=== PATIENT | female | born 1950 | race Caucasian/White ===

== ENCOUNTER 2019-08-12 23:31 | Emergency (ER) | payer OTHER, BC ==
--- OUTSIDE RECORDS SUMMARY | 2019-08-12 23:33 | XMS REPORT ---
:1950 [facility] [address] [place] [address] Dr. Morley [address] [place] [id number] Care Team Providers Name Role Phone Unavailable Unavailable Unavailable Problems This patient has no known problems. Allergies, Adverse Reactions, Alerts This patient has no known allergies or adverse reactions. Medications This patient has no known medications.
[2019-08-12] MEDS ORDERED: NA CHLORIDE 0.9% 500 ML ONE (23:57)
[2019-08-13 00:01] LABS: Urine Blood 2+ (NEG); Urine Glucose NEGATIVE (NEG); Urine Protein NEGATIVE (NEG); Urine Specific Gravity >1.030 (1.005-1.030)
[2019-08-13 00:06] LABS: Absolute Lymphocytes (CBC) 0.9 K/uL (0.7-4.9); Basophils % 0.5 % (0-1.3); Hematocrit 40.7 % (36.0-45.0); Lymphocytes % 7.5 % (15.3-44.8); MPV 8.8 fL (7.6-11.3); RBC Red Blood Cell Count 4.54 M/uL (3.86-4.86)
[2019-08-13 00:07] LABS: Urine Bacteria <20 /HPF (<20); Urine Culture Reflex Order NOT NEEDED; Urine Mucus 1+ /HPF (NONE SEEN)
[2019-08-13 00:30] LABS: Bilirubin Direct 0.2 mg/dL (0-0.2); Bilirubin Total 0.6 mg/dL (0.2-1.0); Potassium 3.6 mmol/L (3.5-5.1); Protein, Total 8.2 g/dL (6.4-8.2)
[2019-08-13 00:44] LABS: Blood Morphology Comment NOT SEEN (NOT SEEN); Platelet Estimate ADEQ
--- NOTE | 2019-08-13 02:09 | EDPHYS ---
Physician Documentation [facility] Name: Yury Rodriguez Age: 68 yrs Sex: Female : 1950 Arrival Date: 08/12/2019 Time: 23:33 Bed 20 Private MD: ED Physician Syd Moreno HPI: 08/11 23:44 This 68 yrs old Female presents to ER via EMS with complaints of abdominal rn pain. 23:44 The patient presents with abdominal pain in the left lower quadrant. Onset: The rn symptoms/episode began/occurred yesterday. The symptoms do not radiate. Associated signs and symptoms: Pertinent positives: constipation, nausea, vomiting, Pertinent negatives: blood in stools, fever, vomiting blood. The symptoms are described as achy, waxing/waning. Modifying factors: The symptoms are alleviated by nothing, the symptoms are aggravated by touching the area. Severity of pain: At its worst the pain was mild in the emergency department the pain is unchanged. The patient has experienced similar episodes in the past. Reports left lower abd pain, assoc with constipation and nausea/vomiting, no fever. No blood in stool. No urinary symptoms. Similar pain in past with kidney stones but feels different. . Historical: - Allergies: 23:39 Sulfa (Sulfonamide Antibiotics); mg2 08/12 00:01 flu vaccine; mg2 - Home Meds: 08/11 23:39 rosuvastatin oral oral [Active]; mg2 - PMHx: 23:39 High Cholesterol; Kidney stones; mg2 - PSHx: 08/12 00:01 eye, leg sx, kidney stone removal; mg2 - Immunization history:: Flu vaccine is not up to date. - Social history:: Smoking status: unknown. - Family history:: not pertinent. - Hospitalizations: : No recent hospitalization is reported. ROS: 08/11 23:44 Constitutional: Negative for fever, chills, and weight loss, Eyes: Negative for injury, rn pain, redness, and discharge, Neck: Negative for injury, pain, and swelling, Cardiovascular: Negative for chest pain, palpitations, and edema, Respiratory: Negative for shortness of breath, cough, wheezing, and pleuritic chest pain, Abdomen/GI: + LLQ abd pain, + nausea/vomiting : Negative for injury, bleeding, discharge, and swelling, MS/Extremity: Negative for injury and deformity, Skin: Negative for injury, rash, and discoloration, Neuro: Negative for headache, weakness, numbness, tingling, and seizure. Exam: 23:44 Constitutional: This is a well developed, well nourished patient who is awake, alert, rn and in no acute distress. Ambulatory to room without difficulty or assistance. Head/Face: Normocephalic, atraumatic. Cardiovascular: Regular rate and rhythm. No pulse deficits. Respiratory: No increased work of breathing, no retractions or nasal flaring. Abdomen/GI: + LLQ tenderness, no rebound, no masses Skin: Warm, dry MS/ Extremity: Pulses equal, no cyanosis Neuro: Awake and alert, GCS 15 Vital Signs: 23:34 BP 150 / 67; Pulse 85; Resp 16; Temp 97.8; Pulse Ox 100% ; Weight 81.65 kg; Height 5 mg2 ft. 5 in. (165.10 cm); Pain 8/10; 08/12 01:47 Pulse 83; Resp 18; Temp 97.8; Pulse Ox 100% on R/A; mg2 02:25 BP 120 / 67; Pulse 81; Resp 18; Temp 98; Pulse Ox 100% on R/A; mg2 08/11 23:34 Body Mass Index 29.95 (81.65 kg, 165.10 cm) mg2 MDM: 08/11 23:34 Patient medically screened. rn 23:44 ED course: Pt had bowel movement when arrived, pain seemed to improve but did not rn resolve. . 08/12 02:05 Differential diagnosis: diverticulitis, non-specific abd pain, Pyelonephritis, rn Ureterolithiasis, urinary tract infection. Data reviewed: vital signs, nurses notes, lab test result(s), radiologic studies, CT scan, and as a result, I will discharge patient. Counseling: I had a detailed discussion with the patient and/or guardian regarding: the historical points, exam findings, and any diagnostic results supporting the discharge/admit diagnosis, lab results, radiology results, the need for outpatient follow up, to return to the emergency department if symptoms worsen or persist or if there are any questions or concerns that arise at home. Response to treatment: the patient's symptoms have markedly improved after treatment, and as a result, I will discharge patient. Special discussion: I discussed with the patient/guardian in detail that at this point there is no indication for admission to the hospital. It is understood, however, that if the symptoms persist or worsen the patient needs to return immediately for re-evaluation. ED course: 4mm stone at VUJ, mild hydro, will cover with abx given elevated WBC. Went to urinate after CT and states feels like flow and pain is better. Denies pain currently. Will dc home.. 08/11 23:43 Order name: Basic Metabolic Panel; Complete Time: 00:35 rn 08/11 23:43 Order name: CBC with Diff; Complete Time: 02:01 rn 08/11 23:43 Order name: Creatinine for Radiology; Complete Time: 00:35 rn 08/11 23:43 Order name: Hepatic Function; Complete Time: 00:35 rn 08/11 23:43 Order name: Lipase; Complete Time: 00:35 rn 08/11 23:43 Order name: Urine Microscopic Only; Complete Time: 00:35 rn 08/11 23:43 Order name: IV Saline Lock; Complete Time: 23:50 rn 08/11 23:43 Order name: CT Abd/Pelvis - IV Contrast Only rn 08/11 23:43 Order name: Urine Dipstick--Ancillary (enter results) [facility] 08/12 00:15 Order name: Manual Differential; Complete Time: 02:01 EDNM 08/11 23:43 Order name: Labs collected and sent; Complete Time: 23:50 rn 08/11 23:43 Order name: Urine Dipstick-Ancillary (obtain specimen); Complete Time: 23:50 rn Administered Medications: 08/11 23:50 Drug: NS 0.9% 500 ml Route: IV; Rate: bolus; Site: right antecubital; mg2 08/12 00:30 Follow up: Response: No adverse reaction; IV Status: Completed infusion; IV Intake: mg2 500ml 02:12 Drug: Flomax 0.4 mg Route: PO; mg2 02:24 Follow up: Response: No adverse reaction; Medication administered at discharge. mg2 02:12 Drug: Cipro 500 mg Route: PO; mg2 02:24 Follow up: Response: No adverse reaction; Medication administered at discharge. mg2 02:12 Drug: TORadol - Ketorolac 15 mg Route: IVP; Site: right antecubital; mg2 02:23 Follow up: Response: No adverse reaction; Medication administered at discharge. mg2 Disposition: 08/13/19 02:08 Discharged to Home. Impression: Ureterolithiasis. - Condition is Stable. - Discharge Instructions: Kidney Stones, Dietary Guidelines to Help Prevent Kidney Stones. - Prescriptions for Zofran ODT 4 mg Oral tablet,disintegrating - place 1 tablet by TRANSLINGUAL route every 8 hours As needed; 15 tablet. Flomax 0.4 mg Oral Capsule, Sust. Release 24 hr - take 1 capsule by ORAL route once daily Only take if still having pain and feels like stone has not passed; 3 capsule. Cipro 500 mg Oral Tablet - take 1 tablet by ORAL route every 12 hours for 7 days; 14 tablet. - Medication Reconciliation Form, Thank You Letter, Antibiotic Education, Prescription Opioid Use form. - Follow up: Private Physician; When: As needed; Reason: Recheck today's complaints, Re-evaluation by your physician. - Problem is new. - Symptoms have improved. Signatures: Dispatcher [employer] EDMS Syd Moreno MD MD rn Gardose, Michele, RN RN mg2 Corrections: (The following items were deleted from the chart) 02:28 02:08 08/13/2019 02:08 Discharged to Home. Impression: Ureterolithiasis. Condition is mg2 Stable. Forms are Medication Reconciliation Form, Thank You Letter, Antibiotic Education, Prescription Opioid Use. Follow up: Private Physician; When: As needed; Reason: Recheck today's complaints, Re-evaluation by your physician. Problem is new. Symptoms have improved. rn
--- NOTE | 2019-08-13 02:09 | ER ---
Nurse's Notes [facility] Name: Yury Rodriguez Age: 68 yrs Sex: Female : 1950 Arrival Date: 08/12/2019 Time: 23:33 Bed 20 Private MD: Diagnosis: Ureterolithiasis Presentation: 08/11 23:34 Chief complaint: EMS states: she has constipation, LLQ pain and left lower back pain mg2 since yesterday. she also vomited once today. Ebola Screen: No symptoms or risks identified at this time. Initial Sepsis Screen: Does the patient meet any 2 criteria? No. Patient's initial sepsis screen is negative. Does the patient have a suspected source of infection? No. Patient's initial sepsis screen is negative. Risk Assessment: Do you want to hurt yourself or someone else? Patient reports no desire to harm self or others. 23:34 Method Of Arrival: EMS: [facility] mg2 23:34 Acuity: KAREN 3 mg2 23:34 Onset of symptoms was August 11, 2019. mg2 23:34 Coronavirus screen: Patient denies fever greater than 100.4F, cough, shortness of mg2 breath, or difficulty breathing. Proceed with normal triage process. Historical: - Allergies: 23:39 Sulfa (Sulfonamide Antibiotics); mg2 08/12 00:01 flu vaccine; mg2 - Home Meds: 08/11 23:39 rosuvastatin oral oral [Active]; mg2 - PMHx: 23:39 High Cholesterol; Kidney stones; mg2 - PSHx: 08/12 00:01 eye, leg sx, kidney stone removal; mg2 - Immunization history:: Flu vaccine is not up to date. - Social history:: Smoking status: unknown. - Family history:: not pertinent. - Hospitalizations: : No recent hospitalization is reported. Screenin/29 23:39 Abuse screen: Denies threats or abuse. Denies injuries from another. Nutritional mg2 screening: No deficits noted. Tuberculosis screening: No symptoms or risk factors identified. 23:57 Fall Risk IV access (20 points). mg2 Assessment: 23:54 General: Appears in no apparent distress. comfortable, Behavior is calm, cooperative. mg2 Pain: Complains of pain in back and abdomen Pain currently is 8 out of 10 on a pain scale. Quality of pain is described as aching, Pain began gradually, 1 day ago. Is intermittent. Neuro: Level of Consciousness is awake, alert, obeys commands, Oriented to person, place, time, situation. Cardiovascular: Capillary refill < 3 seconds Patient's skin is warm and dry. Respiratory: Breath sounds are clear bilaterally. GI: Reports lower abdominal pain, vomiting. : Urine is pls see urine dip. EENT: No signs and/or symptoms were reported regarding the EENT system. Derm: Skin is intact, is healthy with good turgor, Skin is pink, warm \T\ dry. normal. Musculoskeletal: Circulation, motion, and sensation intact. Capillary refill < 3 seconds. 08/12 01:13 Reassessment: patient in ct now. mg2 01:47 Reassessment: Patient appears in no apparent distress at this time. Patient and/or mg2 family updated on plan of care and expected duration. Pain level reassessed. Patient is alert, oriented x 3, equal unlabored respirations, skin warm/dry/pink. 02:26 Reassessment: Patient states feeling better. mg2 Vital Signs: 08/11 23:34 BP 150 / 67; Pulse 85; Resp 16; Temp 97.8; Pulse Ox 100% ; Weight 81.65 kg; Height 5 mg2 ft. 5 in. (165.10 cm); Pain 8/10; 08/12 01:47 Pulse 83; Resp 18; Temp 97.8; Pulse Ox 100% on R/A; mg2 02:25 BP 120 / 67; Pulse 81; Resp 18; Temp 98; Pulse Ox 100% on R/A; mg2 08/11 23:34 Body Mass Index 29.95 (81.65 kg, 165.10 cm) mg2 ED Course: 08/11 23:33 Patient arrived in ED. mg2 23:34 Syd Moreno MD is Attending Physician. rn 23:36 Triage completed. mg2 23:37 Arm band placed on. mg2 23:40 Urine collected: clean catch specimen, clear. rr5 23:41 Rafa Donis, MARIAA is Primary Nurse. mg2 23:45 Inserted saline lock: 20 gauge in right antecubital area, using aseptic technique. mg2 Blood collected. 23:51 No provider procedures requiring assistance completed. mg2 23:56 Patient has correct armband on for positive identification. Placed in gown. Call light mg2 in reach. Side rails up X2. Pulse ox on. RAFFIBP on. Door closed. Noise minimized. Warm blanket given. 08/12 01:15 CT Abd/Pelvis - IV Contrast Only In Process Unspecified. EDMS 02:26 IV discontinued, intact, bleeding controlled, No redness/swelling at site. Pressure mg2 dressing applied. Administered Medications: 08/11 23:50 Drug: NS 0.9% 500 ml Route: IV; Rate: bolus; Site: right antecubital; mg2 08/12 00:30 Follow up: Response: No adverse reaction; IV Status: Completed infusion; IV Intake: mg2 500ml 02:12 Drug: Flomax 0.4 mg Route: PO; mg2 02:24 Follow up: Response: No adverse reaction; Medication administered at discharge. mg2 02:12 Drug: Cipro 500 mg Route: PO; mg2 02:24 Follow up: Response: No adverse reaction; Medication administered at discharge. mg2 02:12 Drug: TORadol - Ketorolac 15 mg Route: IVP; Site: right antecubital; mg2 02:23 Follow up: Response: No adverse reaction; Medication administered at discharge. mg2 Intake: 00:30 IV: 500ml; Total: 500ml. mg2 Outcome: 02:08 Discharge ordered by . rn 02:26 Discharged to home ambulatory. mg2 02:26 Condition: stable 02:26 Discharge instructions given to patient, Instructed on discharge instructions, follow up and referral plans. medication usage, Demonstrated understanding of instructions, follow-up care, medications, Prescriptions given X 3. 02:28 Patient left the ED. mg2 Signatures: Dispatcher [employer] EDIL Syd Moreno MD MD rn Gardose, Michele, RN RN mg2 Mickey Villanueva, RN RN rr5
[2019-08-13] MEDS ORDERED: CIPROFLOXACIN HCL 500 MG TAB ONE (02:10)
[2019-08-13] MEDS ORDERED: TAMSULOSIN 0.4 MG SR CAP ONE (02:11)
[2019-08-13] MEDS ORDERED: KETOROLAC 30 MG/ML INJ ONE (02:11)
[2019-08-13 02:37] VITALS: O2SAT 100
[2019-08-13 02:40] VITALS: BP 120/67; TEMP 98
--- NOTE | 2019-08-13 10:25 | RAD REPORT ---
EXAM DESCRIPTION: CT - Abdomen Pelvis W Contrast - 08/13/2019 3:32 am CLINICAL HISTORY: Left lower quadrant and back pain TECHNIQUE: Contiguous axial images obtained through the abdomen and pelvis following the uneventful administration of IV contrast. Coronal and sagittal reformatted images were provided. This exam was performed according to our departmental dose-optimization program, which includes autom ated exposure control, adjustment of the mA and/or kV according to patient size and/or use of iterati ve reconstruction technique. COMPARISON: None available for comparison. FINDINGS: Lung bases: Right basilar subsegmental atelectasis/pleural parenchymal scar. Small hiatal hernia. Liver: The liver is enlarged. 6 mm left hepatic hypodensity which is too small to characterize. Gallbladder and biliary system: Unremarkable Pancreas: Unremarkable Spleen: Unremarkable Adrenals: Unremarkable Kidneys: Normal renal cortical enhancement. Bilateral renal calculi, left greater than right, the lar gest on the left measuring 4 mm. Mild left hydroureteronephrosis. 4 mm distal left ureteral calculus just proximal to the ureterovesicular junction (series 501 image 68, series 502 image 57 and series 5 03 image 74). Bowel: Colonic diverticula without adjacent inflammatory change. No obstruction. No appreciable mucos al thickening. Appendix: Normal caliber appendix. No findings to suggest acute appendicitis. Urinary bladder: Unremarkable Reproductive: Unremarkable as visualized Lymph nodes: No pathologically enlarged lymph nodes. Peritoneum: No focal fluid collection. No free air. Vessels: Minimal atherosclerotic disease. No abdominal aortic aneurysm. Abdominal wall: Unremarkable Bones: Minimal multilevel spondylosis. No acute fracture. IMPRESSION: 1. Mildly obstructing 4 mm distal left ureteral calculus just proximal to the ureterov esicular junction. 2. Other findings as above. Electronically signed by: Xavier Moraes MD 08/13/2019 1:50 AM CDT Due to temporary technical issues with the PACS/Fluency reporting system, reports are being signed by the in house radiologist as a courtesy to ensure prompt reporting. The interpreting radiologist is f ully responsible for the content of the report.
== END 2019-08-13 02:28 | disposition home or self-care (01) ==
LOC: ER 23:31
DX: N20.1 Calculus of ureter (principal); E78.00 Pure hypercholesterolemia, unspecified; Z88.2 Allergy status to sulfonamides; Z88.7 Allergy status to serum and vaccine; Z87.442 Personal history of urinary calculi
CPT/HCPCS: 96361; 85025; 80048; 36415; 80076; 83690; 74177; 96374; 99284; Q9967; J7040; 81003; 81015

== ENCOUNTER 2019-11-20 22:44 | Emergency (ER) | payer OTHER, BC ==
[2019-11-20] MEDS ORDERED: NA CHLORIDE 0.9% 1,000 ML ONE (23:40)
[2019-11-20] MEDS ORDERED: ONDANSETRON 4 MG/2 ML VIAL ONE (23:40)
[2019-11-20] MEDS ORDERED: MORPHINE 4 MG/ML SYR ONE (23:40)
[2019-11-20 23:49] LABS: Absolute Lymphocytes (CBC) 1.5 K/uL (0.7-4.9); Basophils % 0.6 % (0-1.3); Lymphocytes % 13.1 % (15.3-44.8); MPV 8.9 fL (7.6-11.3); RBC Red Blood Cell Count 4.37 M/uL (3.86-4.86)
[2019-11-21] LABS: Albumin 3.8 g/dL (3.4-5.0); Bilirubin Direct 0.1 mg/dL (0-0.2); Bilirubin Total 0.6 mg/dL (0.2-1.0); Potassium 3.5 mmol/L (3.5-5.1); Protein, Total 7.7 g/dL (6.4-8.2)
[2019-11-21] MEDS ORDERED: FENTANYL CITR 100 MCG/2 ML ONE (00:29)
--- NOTE | 2019-11-21 01:16 | EDPHYS ---
Physician Documentation [facility] Name: Yury Rodriguez Age: 69 yrs Sex: Female : 1950 Arrival Date: 11/20/2019 Time: 22:46 Bed 19 Private MD: ED Physician Maurilio Candelaria HPI: 11/20 06:13 This 69 yrs old Female presents to ER via Ambulatory with complaints of Back tw4 Pain, Side Pain, Nausea/Vomiting. 06:13 The patient presents with pain that is acute. The patient presents with pain that is tw4 acute, with no known mechanism of injury. The symptoms are located in the left mid back. Onset: The symptoms/episode began/occurred 2 day(s) ago. The pain does not radiate. Associated signs and symptoms: The patient has no apparent associated signs or symptoms. The problem was sustained from unknown cause. Modifying factors: The patient symptoms are alleviated by nothing, the patient symptoms are aggravated by nothing. Severity of symptoms: At their worst the symptoms were moderate, in the emergency department the symptoms are unchanged. The patient has not experienced similar symptoms in the past. Historical: - Allergies: 11/19 23:16 FLU VACCINE; sg 23:16 Sulfa (Sulfonamide Antibiotics); sg - Home Meds: 23:16 rosuvastatin Oral [Active]; sg - PMHx: 23:16 High Cholesterol; Kidney stones; sg - PSHx: 23:16 eye, leg sx, kidney stone removal; sg - Immunization history:: Adult Immunizations up to date. - Social history:: Smoking status: Patient denies any tobacco usage or history of. ROS: 11/20 06:13 MS/Extremity: Negative for injury and deformity, Skin: Negative for injury, rash, and tw4 discoloration, Neuro: Negative for headache, weakness, numbness, tingling, and seizure. Abdomen/GI: Positive for nausea and vomiting, nausea, vomiting, and diarrhea, nausea, vomiting, Negative for abdominal pain, bowel incontinence, flatulence. : Positive for flank pain. Exam: 06:13 Constitutional: This is a well developed, well nourished patient who is awake, alert, tw4 and in no acute distress. Head/Face: Normocephalic, atraumatic. Eyes: Pupils equal round and reactive to light, extra-ocular motions intact. Lids and lashes normal. Conjunctiva and sclera are non-icteric and not injected. Cornea within normal limits. Periorbital areas with no swelling, redness, or edema. Chest/axilla: Normal chest wall appearance and motion. Nontender with no deformity. No lesions are appreciated. Cardiovascular: Regular rate and rhythm with a normal S1 and S2. No gallops, murmurs, or rubs. Normal PMI, no JVD. No pulse deficits. Respiratory: Lungs have equal breath sounds bilaterally, clear to auscultation and percussion. No rales, rhonchi or wheezes noted. No increased work of breathing, no retractions or nasal flaring. MS/ Extremity: Pulses equal, no cyanosis. Neurovascular intact. Full, normal range of motion. Neuro: Awake and alert, GCS 15, oriented to person, place, time, and situation. Cranial nerves II-XII grossly intact. Motor strength 5/5 in all extremities. Sensory grossly intact. Cerebellar exam normal. Normal gait. 06:13 Back: CVA tenderness, that is moderate, is noted on the left. Vital Signs: 11/19 23:18 BP 145 / 81; Pulse 110; Resp 19; Temp 97.8(O); Pulse Ox 99% on R/A; Weight 77.11 kg; ar5 Height 5 ft. 5 in. (165.10 cm); Pain 10/10; 11/20 00:15 Pain 8/10; rv 00:46 BP 129 / 67; Pulse 109; Resp 17; Pulse Ox 96% on R/A; rv 01:37 BP 131 / 63; Pulse 94; Resp 18; Pulse Ox 96% on R/A; rv 11/19 23:18 Body Mass Index 28.29 (77.11 kg, 165.10 cm) ar5 MDM: 01:07 Patient medically screened. tw4 06:13 Differential diagnosis: Peptic Ulcer sprain, Ureterolithiasis vertebral fracture. Data tw4 reviewed: vital signs, nurses notes, lab test result(s), CBC, electrolytes, radiologic studies, CT scan. Data interpreted: Pulse oximetry: Interpretation: normal. Counseling: I had a detailed discussion with the patient and/or guardian regarding: the historical points, exam findings, and any diagnostic results supporting the discharge/admit diagnosis, lab results, radiology results. Medication response: morphine partially relieved the patient's pain. Response to treatment: the patient's symptoms have markedly improved after treatment, and as a result, I will discharge patient. Special discussion: Based on the patient's Hx, exam, and Dx evaluation, there is no indication for emergent surgery or inpatient Tx. It is understood by the patient/guardian that if the Sx's persist or worsen they need to return immediately for re-evaluation. I discussed with the patient/guardian in detail that at this point there is no indication for admission to the hospital. It is understood, however, that if the symptoms persist or worsen the patient needs to return immediately for re-evaluation. 11/19 23:13 Order name: Basic Metabolic Panel; Complete Time: 01:40 [facility] 11/20 01:40 Interpretation: Normal except: GLUC 134; BUN 21; GFR 56. [facility] 11/19 23:13 Order name: CBC with Diff; Complete Time: 01:40 [facility] 11/20 01:41 Interpretation: Normal except: WBC 11.6; LYM% 13.1; PIERRE% 77.1; NEUT A 8.9. [facility] 11/19 23:13 Order name: Hepatic Function; Complete Time: 01:40 [facility] 11/20 01:41 Interpretation: Normal except: GLOB 3.9; A/G 1.0. [facility] 11/19 23:13 Order name: Lipase; Complete Time: 01:40 [facility] 11/20 01:41 Interpretation: Within normal limits: LIP 137. [facility] 11/19 23:13 Order name: Urine Microscopic Only [facility] 11/20 01:51 Order name: Urine Dipstick--Ancillary (enter results) 11/19 23:16 Order name: CT Stone Protocol [facility] 11/19 23:13 Order name: IV Saline Lock; Complete Time: 23:37 [facility] 11/19 23:13 Order name: Labs collected and sent; Complete Time: 23:37 [facility] 11/19 23:13 Order name: Urine Dipstick-Ancillary (obtain specimen); Complete Time: 01:50 Administered Medications: 11/19 23:35 Drug: NS 0.9% 1000 ml Route: IV; Rate: 1 bolus; Site: left wrist; 11/20 01:36 Follow up: IV Status: Completed infusion; IV Intake: 1000ml 11/19 23:36 Drug: morphine 4 mg Route: IVP; Site: left wrist; rv 11/20 00:15 Follow up: Pain 8/10 Adult; Response: No adverse reaction; Pain is decreased; RASS: rv Alert and Calm (0) 11/19 23:36 Drug: Zofran (Ondansetron) 4 mg Route: IVP; Site: left wrist; rv 11/20 00:16 Follow up: Response: No adverse reaction; Marked relief of symptoms; Nausea is decreasedrv 00:21 Drug: fentaNYL (PF) 50 mcg Route: IVP; Site: left wrist; rv 01:36 Follow up: Response: No adverse reaction; Pain is decreased; RASS: Alert and Calm (0) rv 01:35 Drug: fentaNYL (PF) 50 mcg {Note: rass 0.} Route: IVP; Site: left wrist; rv Disposition: 11/21/19 01:15 Discharged to Home. Impression: Calculus of ureter. - Condition is Stable. - Discharge Instructions: Renal Colic, Kidney Stones, [id number]. - Prescriptions for Ibuprofen 800 mg Oral Tablet - take 1 tablet by ORAL route every 8 hours As needed take with food; 30 tablet. Tylenol- Codeine #3 300-30 mg Oral Tablet - take 2 tablet by ORAL route every 6 hours As needed; 30 tablet. Zofran 4 mg Oral Tablet - take 1 tablet by ORAL route every 12 hours As needed; 6 tablet. Flomax 0.4 mg Oral Capsule, Sust. Release 24 hr - take 1 capsule by ORAL route once daily 1/2 hour following the same meal each day; 30 capsule. - Medication Reconciliation Form, Thank You Letter, Antibiotic Education, Prescription Opioid Use form. - Follow up: Private Physician; When: Upon discharge from the Emergency Department; Reason: Recheck today's complaints, Continuance of care, Re-evaluation by your physician. - Problem is new. - Symptoms have improved. Signatures: Dispatcher [employer] Donovan Santamaria RN RN Maurilio Neves MD MD tw4 Jose Canas RN RN Lucita Montano ar5 Corrections: (The following items were deleted from the chart) 02:27 01:15 11/21/2019 01:15 Discharged to Home. Impression: Calculus of ureter. Condition is ar5 Stable. Forms are Medication Reconciliation Form, Thank You Letter, Antibiotic Education, Prescription Opioid Use. Follow up: Private Physician; When: Upon discharge from the Emergency Department; Reason: Recheck today's complaints, Continuance of care, Re-evaluation by your physician. Problem is new. Symptoms have improved. tw4
--- NOTE | 2019-11-21 01:16 | ER ---
Nurse's Notes [facility] Name: Yury Rodriguez Age: 69 yrs Sex: Female : 1950 Arrival Date: 11/20/2019 Time: 22:46 Bed 19 Private MD: Diagnosis: Calculus of ureter Presentation: 11/19 23:14 Chief complaint: Patient states: Tracee had some right sided and left sided back pain for sg a couple days, reports having nausea and vomiting as well, has a hx of kidney stones, denies fever/chills at this time. Coronavirus screen: Proceed with normal triage. Ebola Screen: Patient negative for fever greater than or equal to 101.5 degrees Fahrenheit, and additional compatible Ebola Virus Disease symptoms Patient denies exposure to infectious person. Patient denies travel to an Ebola-affected area in the 21 days before illness onset. No symptoms or risks identified at this time. Initial Sepsis Screen: Does the patient meet any 2 criteria? No. Patient's initial sepsis screen is negative. Does the patient have a suspected source of infection? Yes: Dysuria/Frequency/Urgency/UTI. Risk Assessment: Do you want to hurt yourself or someone else? Patient reports no desire to harm self or others. Onset of symptoms was November 20, 2019. Care prior to arrival: None. Transition of care: patient was not received from another setting of care. 23:14 Acuity: KAREN 3 sg 23:14 Method Of Arrival: Ambulatory sg Historical: - Allergies: 23:16 FLU VACCINE; sg 23:16 Sulfa (Sulfonamide Antibiotics); sg - Home Meds: 23:16 rosuvastatin Oral [Active]; sg - PMHx: 23:16 High Cholesterol; Kidney stones; sg - PSHx: 23:16 eye, leg sx, kidney stone removal; sg - Immunization history:: Adult Immunizations up to date. - Social history:: Smoking status: Patient denies any tobacco usage or history of. Screenin:38 Abuse screen: Denies threats or abuse. Denies injuries from another. Nutritional rv screening: No deficits noted. Tuberculosis screening: No symptoms or risk factors identified. Fall Risk None identified. Assessment: 23:37 General: Appears uncomfortable, Behavior is calm, cooperative. Pain: Complains of pain rv in back and abdomen. Neuro: Level of Consciousness is awake, alert, obeys commands, Oriented to person, place, time, situation. Cardiovascular: Patient's skin is warm and dry. Respiratory: Airway is patent. GI: Abdomen is round non-distended, Pt is actively vomiting clear fluid, Reports nausea, vomiting. Derm: Skin is intact. Vital Signs: 23:18 BP 145 / 81; Pulse 110; Resp 19; Temp 97.8(O); Pulse Ox 99% on R/A; Weight 77.11 kg; ar5 Height 5 ft. 5 in. (165.10 cm); Pain 10/10; 11/20 00:15 Pain 8/10; rv 00:46 BP 129 / 67; Pulse 109; Resp 17; Pulse Ox 96% on R/A; rv 01:37 BP 131 / 63; Pulse 94; Resp 18; Pulse Ox 96% on R/A; rv 11/19 23:18 Body Mass Index 28.29 (77.11 kg, 165.10 cm) ar5 ED Course: 11/19 22:46 Patient arrived in ED. cl3 23:13 Maurilio Candelaria MD is Attending Physician. tw4 23:14 Arm band placed on. sg 23:15 Triage completed. sg 23:28 Jose Canas, MARIAA is Primary Nurse. rv 23:30 Inserted saline lock: 20 gauge in left wrist, using aseptic technique. Blood collected. rv 23:30 Initial lab(s) drawn, by ks, sent to lab. rv 23:38 Patient has correct armband on for positive identification. Placed in gown. Bed in low rv position. Call light in reach. Pulse ox on. NIBP on. 11/20 00:11 CT Stone Protocol In Process Unspecified. EDMS 01:38 No provider procedures requiring assistance completed. IV discontinued, intact, rv bleeding controlled, No redness/swelling at site. Pressure dressing applied. Administered Medications: 11/19 23:35 Drug: NS 0.9% 1000 ml Route: IV; Rate: 1 bolus; Site: left wrist; rv 11/20 01:36 Follow up: IV Status: Completed infusion; IV Intake: 1000ml rv 11/19 23:36 Drug: morphine 4 mg Route: IVP; Site: left wrist; rv 11/20 00:15 Follow up: Pain 8/10 Adult; Response: No adverse reaction; Pain is decreased; RASS: rv Alert and Calm (0) 11/19 23:36 Drug: Zofran (Ondansetron) 4 mg Route: IVP; Site: left wrist; rv 11/20 00:16 Follow up: Response: No adverse reaction; Marked relief of symptoms; Nausea is decreasedrv 00:21 Drug: fentaNYL (PF) 50 mcg Route: IVP; Site: left wrist; rv 01:36 Follow up: Response: No adverse reaction; Pain is decreased; RASS: Alert and Calm (0) rv 01:35 Drug: fentaNYL (PF) 50 mcg {Note: rass 0.} Route: IVP; Site: left wrist; rv Intake: 01:36 IV: 1000ml; Total: 1000ml. rv Outcome: 01:15 Discharge ordered by MD. garzon 02:27 Patient left the ED. ar5 Signatures: Dispatcher [employer] Donovan Santamaria RN RN sg Wadley, Terrence, MD MD tw4 Jose Canas RN RN rv Robles, Autumn ar5 Radha Avina3
[2019-11-21 02:08] LABS: Urine Blood 1+ (NEG); Urine Glucose NEGATIVE (NEG); Urine Protein NEGATIVE (NEG)
[2019-11-21 02:13] LABS: Urine Bacteria <20 /HPF (<20); Urine Culture Reflex Order NOT NEEDED; Urine Urothelial Cells <5 /HPF (NONE SEEN)
--- OUTSIDE RECORDS SUMMARY | 2019-11-21 03:04 | XMS REPORT | Summary of Care ---
:1950 Author Organization [facility] - [address] [address] Care Team Providers Name Role Phone Pcp, Patient Does Not Have A Primary Care Provider +[id number] Encounter Details Date Type Department Care Team Description 11/05/2019 Patient Secure Msg [facility] Eye Alexx Jovani en A [address] [place] [phone] Allergies Active Allergy Reactions Severity Noted Date Comments Influenza Vaccine Tr-S 09 (Pf) Rash 03/26/2015 Sulfamethazine Rash 07/06/2011 documented as of this encounter (statuses as of 11/05/2019) Medications Medication Sig Dispensed Refills Start Date End Date Status loratadine (CLARITIN) 10 mg Take 10 mg by 0 Active tablet mouth at bedtime as needed for Allergies. ampicillin 500 mg capsule 0 02/16/[address] in 0 Active sodium (REFRESH OPHTHALMIC) each eye. 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 documented as of this encounter Last Filed Vital Signs Not on filedocumented in this encounter Plan of Treatment Date Type Specialty Care Team Description 12/06/2019 Office Visit Ophthalmology Mitch Cabrera MD [address] [place], [place] [address] Health Maintenance Due Date Last Done Comments HEPATITIS C (HCV) SCREEN 1950 COLONOSCOPY 08/19/2001 Zoster Recombinant Vaccine (SHINGRIX) (1 08/19/2001 of 2) Breast Cancer Screening (MAMMOGRAM) 03/31/2016 03/31/2015, 06/27/2012 Medicare Wellness Visit 08/19/2016 Osteoporosis Screening 08/19/2016 PNEUMOCOCCAL VACCINES 65+ (1 of 2 - PCV13) 08/19/2016 INFLUENZA VACCINE (Season Ended) 2020 Depression Screening 03/02/2020 03/02/2019 DTaP,Tdap,and Td Vaccines (2 - Td) 08/29/2022 08/29/2012 documented as of this encounter Results Not on filedocumented in this encounter Insurance Payer Benefit Plan / Subscriber ID Effective Phone Address T ype Group Dates MEDICARE MEDICARE PART A xxxxxxxxxxx 2016-Pres [phone] P. O. 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
--- OUTSIDE RECORDS SUMMARY | 2019-11-21 03:04 | XMS REPORT | Continuity of Care Document ---
:1950 Author Organization [facility] t Address [address] [place] [address] Care Team Providers Name Role Phone Agnes Tang MD Primary Care Physician Sharon Coffey Attending Clinician Unavailable Bekah JOHN Attending Clinician Carlin Attending Clinician Unavailable Himanshu JOHN, Jammie Attending Clinician Payers Payer Name Policy Policy Number Effective Expiration Source Type Date Date MEDICAREMEDICARE PART xxxxxxxxxxx 2016 Elias Herrera AND 00:00:00 [facility] [place] [place] COMMERCIAL[place]BS xxxxxxxxxxxx 2016 Ashish vallecillo MEDICARE 00:00:00 [employer] SUPPLEMENTxxxxxxxxxxx x2016-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 1-18 Me thodi sterolemia sterolemia 00:00: st 00 Peripheral Peripheral Disease Active 2019 [place] neuropathy neuropathy 8-13 Me thodi 00:00: st 00 Seasonal Seasonal Disease Active 2017-05 [place] allergies allergies 2-04 Meth nirav 00:00: st 00 Allergies, Adverse Reactions, Alerts Allergy Allergy Status Severity Reaction(s) Onset Inactive Treating Comm ents Source Name Type Date Date Clinician Influenz Propensi Active Rash 2014-05 [place] a ty to 05-26 [facility] Vaccine adverse 00:00: st Tr-S 09 reaction 00 (Pf) s to drug Sulfamet Propensi Active Rash [place] hazine ty to 07-06 [facility] adverse 00:00: st reaction 00 s to drug Family History Family Member Diagnosis Comments Start Date Stop Date Source Natural father Heart attack [facility] Natural father Heart failure [facility] Natural father Hypertension [facility] Natural mother Alzheimer's disease H [facility] Natural mother Diabetes [facility] thodist Paternal uncle Heart disease [facility] Social History Social Habit Start Date Stop Date Quantity Comments Source Sex Assigned At F [place] M ethodist Alcohol intake 2019-10-15 2019-10-15 Current drinker Deon on [facility] 00:00:00 00:00:00 of alcohol (finding) Alcohol Comment 2018-04-18 2018-04-18 social-rare [place] [facility] 00:00:00 00:00:00 Smoking Status Start Date Stop Date Source Never smoker [place] Methodis t Medications Ordered Filled Start Stop Current Ordering Indication Dosage Frequency Signature Comments Components Source Medication Medication Date Date Medication? Clinician (SIG) Name Name multivitami Yes 1{tbl} QD Take 1 [place] n 5-28 tablet by [facility] (THERAGRAN) 12:49: mouth st tablet 22 daily. naproxen Yes Take by [place] sodium 5-28 mouth as [facility] (ALEVE 12:49: needed. st ORAL) 22 aspirin Yes 81mg Take 81 mg [place] (ECOTRIN) 5-28 by mouth. Metho di 81 MG 12:49: Every now st enteric 22 and then coated tablet rosuvastati 2018-05- No 10mg QD Take 1 Ashish ston n (CRESTOR) 1-18 11-17 tablet (10 M ethodi 10 MG 00:00: 23:59 mg total) st tablet 00 :00 by mouth daily. aspirin 2019- No 81mg QD Take 81 mg Ashish ston (ECOTRIN) - 09-30 by mouth Metho di 81 MG 12:47: 00:[address] enteric 42 :00 coated tablet carboxymeth 2018- No Apply to Lamin harden ylcellulose 02-12 eye. [facility] sodium 0.25 12:47: 00:00 st % drops 39 :00 DULoxetine 2019- No Depression, 30mg QD Take 1 Baez (CYMBALTA) 02-12 unspecified capsule [facility] 30 MG 00:00: 00:00 depression ([address] capsule 00 :00 type total) by mouth daily. Immunizations Ordered Immunization Filled Immunization Date Status Commen ts Source Name Name Tdap 2012-08-29 Completed [place] 00:00:00 [facility] Vital Signs Vital Name Observation Time Observation Value Comments Source Systolic blood 2019-10-11 12:29:00 122 mm[Hg] Gino n [facility] pressure Diastolic blood 2019-10-11 12:29:00 75 mm[Hg] [place] on [facility] pressure Heart rate 2019-10-11 12:29:00 80 /min [place] [facility] Body height 2019-10-11 12:29:00 160 cm [place] [facility] Body weight 2019-10-11 12:29:00 79.379 kg Nestor Lr BMI 2019-10-11 12:29:00 31.00 kg/m2 Nestor Lr Procedures Procedure Date / Time Performed Performing Clinician Sour e LIPID PANEL 2019-10-09 10:24:00 Nestor Godfrey Hong COPY(IES) SENT TO: 2019-10-09 10:24:00 Nestor Godfrey M ethodist Hong CHOLESTEROL 2019-10-09 10:24:00 Nestor Godfrey Hong HDL CHOLESTEROL 2019-10-09 10:24:00 Nestor Godfrey Hong TRIGLYCERIDES 2019-10-09 10:24:00 Nestor Godfrey Hong LDL-CHOLESTEROL (REFLEX 2019-10-09 10:24:00 Yandel Godfrey QUEST) Hong CHOL/HDLC RATIO (REFLEX 2019-10-09 10:24:00 Yandel Godfrey [facility] QUEST) Hong NON HDL CHOLESTEROL 2019-10-09 10:24:00 Nestor Godfrey (REFLEX QUEST) Hong COPY RECEIVED FROM: 2019-10-09 10:24:00 Nestor Godfrey Hong LIPID PANEL 2019-06-29 10:00:00 Nestor Godfrey Hong COPY(IES) SENT TO: 2019-06-29 10:00:00 Nestor Godfrey Orly ethodist Hong CHOLESTEROL 2019-06-29 10:00:00 Nestor Godfrey Hong HDL CHOLESTEROL 2019-06-29 10:00:00 Nestor Godfrey Brittni anai Hong TRIGLYCERIDES 2019-06-29 10:00:00 Nestor Godfrey Hong LDL-CHOLESTEROL (REFLEX 2019-06-29 10:00:00 Yandel Godfrey [facility] QUEST) Hong CHOL/HDLC RATIO (REFLEX 2019-06-29 10:00:00 Yandel Godfrey [facility] QUEST) Hong NON HDL CHOLESTEROL 2019-06-29 10:00:00 Nestor Godfrey (REFLEX QUEST) Hong COPY RECEIVED FROM: 2019-06-29 10:00:[address] CARDIAC CALCIUM SCORE 2019-01-11 10:15:00 Ashish Godfrey Hong TTE COMPLETE, WO 2019-01-02 11:11:49 Nestor Godfrey, W DOPPLER Hong ([id number]) CBC WITH PLATELET AND 2018-12-26 11:11:00 Gino Godfrey DIFFERENTIAL Hong BASIC METABOLIC PANEL 2018-12-26 11:11:00 Gino Godfrey Hong THYROID STIMULATING 2018-12-26 11:11:00 Nestor Godfrey HORMONE Hong LIPID PANEL 2018-12-26 11:11:00 Nestor Godfrey Hong ECG 12-LEAD 2018-12-26 10:25:17 Nestor Godfrey Hong Plan of Care Planned Activity Planned Date Details Comments Source Future Scheduled 2019-12-15 INFLUENZA VACCINE Gino Lr Test 00:00:00 [code = INFLUENZA VACCINE] Future Scheduled 2016-08-19 65+ PNEUMOCOCCAL Baez [facility] Test 00:00:00 VACCINE (1 of 2 - PCV13) [code = 65+ PNEUMOCOCCAL VACCINE (1 of 2 - PCV13)] Future Scheduled 2001-08-19 BREAST CANCER [facility] thodist Test 00:00:00 SCREENING [code = BREAST CANCER SCREENING] Future Scheduled 2001-08-19 COLONOSCOPY SCREENING Ho sarah [facility] Test 00:00:00 [code = COLONOSCOPY SCREENING] Future Scheduled 2001-08-19 SHINGLES VACCINES (#1) H dereck [facility] Test 00:00:00 [code = SHINGLES VACCINES (#1)] Encounters Start End Encounter Admission Attending Care Care Encounter Source Date/Time Date/Time Type Type Clinicians Facility Department ID 2019-11-05 2019-11-05 GÓMEZ Ivan [id number] 00:00:00 00:00:00 Secure Msg Kerry Herrera Y [id number] [facility] [id number] [facility] [id number] BLDG. 136 2019-10-15 2019-10-15 Outpatient [facility] [id number] [place] 00:00:00 00:00:00 A, MOHAMMED [address] 2019-10-09 2019-10-09 Outpatient [facility] [id number] [place] 00:00:00 00:00:00 A, MOHAMMED [address] Results Test Description Test Time Test Comments Results Result Comments Source Lipid panel 2019-10-10 05:06:00 Test Item Value Reference Range Interpretation Comme nts Cholesterol, total (test 155 mg/dL <200 code = 2093-3) HDL cholesterol (test 84 mg/dL > OR = 50 code = 2085-9) Triglycerides (test code 53 mg/dL <150 = 2571-8) LDL cholesterol 58 mg/dL (calc) Reference ra nge: <100 calculated (test code = Rekha calixto range <100 70875-5) mg/dL for prima ry prevention; <7 0 mg/dL for patie nts with CHD or [place] betic patients with > or = 2 CHD risk fact ors. LDL-C is now calculated joan sheikh the Rj-Frias calculation, wh ich is a validated nov el method providin g better accuracy than the Friedewald equation in the estimation of L DL-C. Rj SS et al . ANDREA. 2013;310( 19): 1388-8263 (http://educati on.[facility] stDiagnostics.c om/faq /OEJ092) Cholesterol/HDL ratio 1.8 <5.0 (calc) (test code = 9830-1) Non-HDL cholesterol 71 <130 mg/dL For brett ents with (test code = 15707-6) (calc) diabet es plus 1 major ASCVD risk fact or, treating to a non-HDL-C goal of <100 mg/dL (LDL -C of <70 mg/dL) is considered a therapeutic opt ion. RAC (test code = RAC) Performing Organization Information: Site ID: JOSE MANUEL Name: [facility] Address: [address] [place] [phone] Director: José Miguel Blanco [place] MethodistCOPY RECEIVED FROM:2019-10-10 05:06:00Copy received from:Comment: JOEL [address] [facility] [address] [place] [address] [facility] [id number] 05:05:00 Test Item Value Reference Range Interpretation Comments Cholesterol, total 155 mg/dL <200 (test code = 2093-3) RAC (test code = Performing Organization RAC) Information: Site ID: JOSE MANUEL Name: [facility] Address: [address] [place] [id number] Director: José Miguel Blanco [place] RestorationismHDL [id number] 05:05:00 Test Item Value Reference Range Interpretation Comments HDL cholesterol (test 84 mg/dL > OR = 50 code = 2085-9) RAC (test code = RAC) Performing Organization Information: Site ID: [facility] Name: [facility] Address: [address] [place] [id number] Director: José Miguel Blanco [place] [id number] 05:05:00 Test Item Value Reference Range Interpretation Comments Triglycerides (test 53 mg/dL <150 code = 2571-8) RAC (test code = RAC) Performing Organization Information: Site ID: [facility]GA Name: [facility] Address: [address] [place] [address] Director: José Miguel Baez MethodistLDL-CHOLESTEROL (REFLEX QUEST)2019-10-10 05:05:00 Test Item Value Reference Range Interpretation Comments LDL cholesterol 58 mg/dL (calc) Reference ra nge: calculated (test <100 Desira ble code = 93846-8) range <100 m g/dL for primary prevention; <7 0 mg/dL for patients with C HD or diabetic patients with > or = 2 CHD risk factors. LDL-C is now calculated using the Madina calculation, which is a validated novel method providin g better accuracy than the Friedewald equation in the estimation of LDL-C. Rj S S et al. ANDREA. 2013;310(63): 7321-2833 (http://educati on .Fashiolista .com/faq/AIT843 ) RAC (test code = Performing RAC) Organization Information: Site ID: [facility] Name: [facility] Address: [address] [place] [address] Director: José Miguel Baez MethodistCHOL/HDLC RATIO (REFLEX QUEST)2019-10-10 05:05:00 Test Item Value Reference Range Interpretation Comments Cholesterol/HDL 1.8 <5.0 (calc) ratio (test code = 9830-1) RAC (test code = Performing Organization RAC) Information: Site ID: [facility] Name: [facility] Address: [address] [place] [address] Director: José Miguel LrNON HDL CHOLESTEROL (REFLEX QUEST)2019-10-10 05:05:00 Test Item Value Reference Range Interpretation Comments Non-HDL 71 <130 mg/dL For patients wi th cholesterol (test (calc) diabetes p nathan 1 code = 20455-1) major ASCVD risk factor, treatin g to a non-HDL-C goal of <100 mg/dL (LDL-C of <70 mg/dL) is considered a therapeutic option. RAC (test code = Performing RAC) Organization Information: Site ID: [facility] Name: [facility] Address: [address] [place], [place] [id number] Director: José Miguel Baez [facility](IES) SENT TO:2019-10-10 05:05:00Copies/mLComment: JOEL CARDIO [address] [place] [address] [facility] metabolic [id number] 07:08:00 Test Item Value Reference Range Interpretation Comments Glucose (test code = 85 mg/dL 65-99 2345-7) BUN (test code = 15 mg/dL 8-27 3094-0) Creatinine (test code = 0.67 mg/dL 0.57-1 2160-0) EGFR Non-Afr. Irish 91 mL/min/1.73 >59 (test code = 2775) EGFR 105 mL/min/1.73 >59 (test code = 2774) BUN/creatinine ratio 22 12-28 (test code = 3097-3) Sodium (test code = 141 mmol/L 478-032 0389-2) Potassium (test code = 4.5 mmol/L 3.5-5.2 2823-3) Chloride (test code = 101 mmol/L 96-106 2075-0) CO2 (test code = 24 mmol/L 20-29 8-9) Calcium (test code = 9.6 mg/dL 8.7-10.3 07346-5) CHLOÉ (test code = CHLOÉ) Performed at: - [address] [id number] Director: Kris Pal MD, Phone: [phone] [facility] [id number] 07:08:00 Test Item Value Reference Range Interpretation Comments TSH (test code = 1.480 0.450- 4.500 uIU/mL 46376-3) CHLOÉ (test code = Performed at: - CHLOÉ) [facility] [address] [id number] Director: Kris Pal MD, Phone: [phone] [facility] with platelet and [id number] 07:08:00 Test Item Value Reference Range Interpretation Comments WBC (test code = 5.8 3.4- 10.8 x10E3/uL 6690-2) RBC (test code = 4.56 3.77- 5.28 x10E6/uL 789-8) HGB (test code = 13.5 g/dL 11.1-15.9 718-7) HCT (test code = 41.0 % 34-46.6 4544-3) MCV (test code = 90 fL 79-97 787-2) MCH (test code = 29.6 pg 26.6-33 785-6) MCHC (test code = 32.9 g/dL 31.5-35.7 786-4) RDW (test code = 14.2 % 12.3-15.4 788-0) Platelet count (test 318 150- 450 x10E3/uL code = 777-3) Neutrophils (test code 60 % Not Estab. = 770-8) Lymphocytes (test code 31 % Not Estab. = 736-9) Monocytes (test code = 8 % Not Estab. 5905-5) Eosinophils (test code 1 % Not Estab. = 713-8) Basophils (test code = 0 % Not Estab. 706-2) Neutrophils, absolute 3.5 1.4- 7.0 x10E3/uL (test code = 751-8) Lymphocytes, absolute 1.8 0.7- 3.1 x10E3/uL (test code = 731-0) Monocytes, absolute 0.4 0.1- 0.9 x10E3/uL (test code = 742-7) Eosinophils, absolute 0.1 0.0- 0.4 x10E3/uL (test code = 711-2) Basophils, absolute 0.0 0.0- 0.2 x10E3/uL (test code = 704-7) Immature granulocytes 0 % Not Estab. (test code = 99837-2) Immature grans (abs) 0.0 0.0- 0.1 x10E3/uL (test code = 57880-8) CHLOÉ (test code = CHLOÉ) Performed at: [address] [place] [id number] Director: Kris Pal MD, Phone: [phone] [facility] 12 [id number] 12:10:05 Test Item Value Reference Range Interpretation Comments Ventricular rate (test 89 code = 253) Atrial rate (test code = 89 255) NH interval (test code = 132 266) QRSD interval (test code 78 = 260) QT interval (test code = 360 264) QTC interval (test code 438 = 265) P axis 1 (test code = 69 267) QRS axis 1 (test code = 86 268) T wave axis (test code = 69 270) EKG impression (test Normal sinus code = 273) rhythm-Normal ECG-No previous ECGs available-Electronica lly Signed By Anna JOHN, Bozena ([id number]) on 12/26/2018 12:08:19 PM Nestor Lr
--- OUTSIDE RECORDS SUMMARY | 2019-11-21 03:04 | XMS REPORT | Clinical Summary ---
:1950 Author Organization [facility] Address [address] [place] [address] Care Team Providers Name Role Phone Agnes Tang MD Primary Care Provider Allergies Active Allergy Reactions Severity Noted Date Comments Influenza Vaccine Tr-S 09 (Pf) Rash Low 03/26/2015 Sulfamethazine Rash Low 07/06/2011 Medications Medication Sig Dispensed Refills Start End Status Date Date multivitamin (THERAGRAN) Take 1 0 Active tablet tablet by mouth daily. naproxen sodium (ALEVE Take by 0 Active ORAL) mouth as needed. aspirin (ECOTRIN) 81 MG Take 81 mg 30 tablet 11 Active enteric coated tablet by mouth. Every now and then rosuvastatin (CRESTOR) 10 Take 1 90 tablet 3 04/02/2003/16/2 Active MG tablet tablet (10 19 020 mg total) by mouth daily. carboxymethylcellulose Apply to 0 Discontinued sodium 0.25 % drops eye. 019 (Patient Reported) aspirin (ECOTRIN) 81 MG Take 81 mg 0 02/12 Discontinued enteric coated tablet by mouth 019 (Patient daily. Reported) DULoxetine (CYMBALTA) 30 Take 1 30 capsule 5 02/13/20/ 9/2 Discontinued MG capsuleIndications: capsule 19 020 Depression, unspecified (30 mg depression type total) by mouth daily. Active Problems Problem Noted Date Coronary artery calcification 04/02/2019 Pure hypercholesterolemia 04/02/2019 Peripheral neuropathy 12/26/2018 Seasonal allergies 04/18/2018 Encounters Date Type Specialty Care Team Description 10/15/2019 Telemedicine Cardiology Bekah, Pure hyperchol esterolemia (Primary Dx); MD Hong Coronary artery calcification 10/09/2019 Lab Lab [facility], Pure hyperchol esterolemia MD Hong 10/09/2019 Travel 08/27/2019 Travel 08/15/2019 Patient Outreach Quality CarlinKarlie 08/14/2019 Patient Outreach Quality Karlie Gillis 07/09/2019 Office Visit Cardiology Bekah, Pure hyperchol esterolemia (Primary Dx); MD Hong Coronary artery calcification 06/29/2019 Lab Lab [facility], Coronary arter y calcification; MD Hong Pure hyperchole sterolemia 06/13/2019 Office Visit Neurology Dom Downs Paresthesi a of both feet (Primary Dx); MD Jammie Peripheral poly neuropathy; Primary osteoar thritis of both ankles; Multifactorial gait disorder; Iliotibial band syndrome, unspecified laterality 04/02/2019 Office Visit Cardiology Bekah, Pure hyperchol esterolemia (Primary Dx); MD Hong Coronary artery calcification 02/12/2019 Office Visit Neurology Dom Downs Multifacto rial gait disorder (Primary Dx); MD Jammie Peripheral poly neuropathy; Paresthesia of both feet; Depression, uns pecified depression type; Anxiety; Iliotibial band syndrome of right side; Iliotibial band syndrome of left side; Primary insomni a 12/27/2018 Telephone Neurology Dom Downs MD 12/26/2018 Lab Lab [facility], Chest pain, at ypical; MD Hong Screening for c ardiovascular condition; Screening for h yperlipidemia 12/26/2018 Office Visit Cardiology Bekah Chest pain, at ypical (Primary Dx); MD Hong Screening for c ardiovascular condition; Screening for h yperlipidemia; Family history of HF (heart failure); Other polyneuro konrad after 11/19/2018 Immunizations Name Administration Dates Next Due Tdap 08/29/2012 Family History Medical History Relation Name Comments Heart attack Father Heart failure Father CHF Hypertension Father Alzheimer's disease Mother Diabetes Mother Heart disease Paternal Uncle CHF Relation Name Status Comments Father Mother Paternal Uncle Social History Tobacco Use Types Packs/Day Years Used Date Never Smoker Smokeless Tobacco: Never Used Alcohol Use Drinks/Week oz/Week Comments Yes social-rare Sex Assigned at Date Recorded Female 12/13/2018 9:18 PM CDT Job Start Date Occupation Industry Not on file Not on file Not on file Travel History Travel Start Travel End No recent travel history available. Last Filed Vital Signs Vital Sign Reading Time Taken Comments Blood Pressure 122/75 10/11/2019 12:29 PM CDT Pulse 80 10/11/2019 12:29 PM CDT Temperature - - Respiratory Rate - - Oxygen Saturation - - Inhaled Oxygen Concentration - - Weight 79.4 kg (175 lb) 10/11/2019 12:29 PM CDT Height 160 cm (5' 3") 10/11/2019 12:29 PM CDT Body Mass Index 31 10/11/2019 12:29 PM CDT Plan of Treatment Health Maintenance Due Date Last Done Comments BREAST CANCER SCREENING 08/19/2001 COLONOSCOPY SCREENING 08/19/2001 SHINGLES VACCINES (#1) 08/19/2001 65+ PNEUMOCOCCAL VACCINE (1 of 2 - PCV13) 08/19/2016 INFLUENZA VACCINE 12/15/2019 Procedures Procedure Name Priority Date/Time Associated Diagnosis Comme nts COPY RECEIVED FROM: Routine 10/09/2019 Results for 10:24 AM CDT this procedure are in the results section. NON HDL CHOLESTEROL Routine 10/09/2019 Results for ([facility]LEX [facility]) 10:24 AM CDT this procedur e are in the results section. CHOL/HDLC RATIO Routine 10/09/2019 Results for (REFLEX [facility]) 10:24 AM CDT this procedur e are in the results section. LDL-CHOLESTEROL Routine 10/09/2019 Results for (REFLEX [facility]) 10:24 AM CDT this procedur e are in the results section. TRIGLYCERIDES Routine 10/09/2019 Results for 10:24 AM CDT this procedure are in the results section. HDL CHOLESTEROL Routine 10/09/2019 Results for 10:24 AM CDT this procedure are in the results section. CHOLESTEROL Routine 10/09/2019 Results for 10:24 AM CDT this procedure are in the results section. COPY(IES) SENT TO: Routine 10/09/2019 Results f or 10:24 AM CDT this procedure are in the results section. LIPID PANEL Routine 10/09/2019 Pure hypercholesterolemia Re sults for 10:24 AM CDT this procedure are in the results section. COPY RECEIVED FROM: Routine 06/29/2019 Results for 10:00 AM FRONT MAKER LOCKSTITCH this procedure are in the results section. NON HDL CHOLESTEROL Routine 06/29/2019 Results for (REFLEX [facility]) 10:00 AM FRONT MAKER LOCKSTITCH this procedur e are in the results section. CHOL/HDLC RATIO Routine 06/29/2019 Results for (REFLEX [facility]) 10:00 AM FRONT MAKER LOCKSTITCH this procedur e are in the results section. LDL-CHOLESTEROL Routine 06/29/2019 Results for (REFLEX [facility]) 10:00 AM FRONT MAKER LOCKSTITCH this procedur e are in the results section. TRIGLYCERIDES Routine 06/29/2019 Results for 10:00 AM FRONT MAKER LOCKSTITCH this procedure are in the results section. HDL CHOLESTEROL Routine 06/29/2019 Results for 10:00 AM FRONT MAKER LOCKSTITCH this procedure are in the results section. CHOLESTEROL Routine 06/29/2019 Results for 10:00 AM FRONT MAKER LOCKSTITCH this procedure are in the results section. COPY(IES) SENT TO: Routine 06/29/2019 Results f or 10:00 AM FRONT MAKER LOCKSTITCH this procedure are in the results section. LIPID PANEL Routine 06/29/2019 Coronary artery Results for 10:00 AM FRONT MAKER LOCKSTITCH calcification this procedure Pure hypercholesterolemia ar e in the results section. CT CARDIAC CALCIUM Routine 01/11/2019 Chest pain, a typical Results for SCORE 10:15 AM CDT Screening for this procedure cardiovascular condition are in the results section. TTE COMPLETE, WO Routine 01/02/2019 Chest pain, aty pical Results for CONTRAST, W DOPPLER 11:11 AM CDT Screening for this pr ocedure ([id number]) cardiovascular condition are in the results section. LIPID PANEL Routine 12/26/2018 Chest pain, atyp ical Results for 11:11 AM CDT Screening for this procedure cardiovascular c ondition are in the Screening for results hyperlipidemia section. THYROID STIMULATING Routine 12/26/2018 Chest pain, atypical Results for HORMONE 11:11 AM CDT Screening for this procedure cardiovascular condition are in the results section. BASIC METABOLIC Routine 12/26/2018 Chest pain, atyp ical Results for PANEL 11:11 AM CDT Screening for this procedure cardiovascular condition are in the results section. CBC WITH PLATELET STAT 12/26/2018 Chest pain, at ypical Results for AND DIFFERENTIAL 11:11 AM CDT Screening for this proce dure cardiovascular condition are in the results section. ECG 12-LEAD Routine 12/26/2018 Chest pain, atypical Results for 10:25 AM CDT this procedure are in the results section. after 11/19/2018 Results NON HDL CHOLESTEROL (REFLEX [facility]) (10/09/2019 10:24 AM CDT)Only the most recent of2 resultswithin the time period is included. Non-HDL cholesterol 71 <130 mg/dL [facility] Comment: (calc) [place] For patients with diabetes plus 1 major ASCVD risk factor, treating to a non-HDL-C goal of <100 mg/dL (LDL-C of <70 mg/dL) is considered a therapeutic option. Specimen Resulting Agency Comment Performing Organization Information: Site ID: [id number] [facility] Address: [address] [place] [address] Director: José Miguel Blanoc Performing Organization Address [facility] Cent[facility]ode Phone [place] [address] CHOL/HDLC RATIO (REFLEX [facility]) (10/09/2019 10:24 AM CDT)Only the most recent of2 resultswithin the time period is included. Pathologist Sig nature Cholesterol/HDL ratio 1.8 <5.0 (calc) [employer] [place] Specimen Resulting Agency Comment Performing Organization Information: Site ID: [facility] Name: [facility] Address: [address] [place] [phone] Director: José Miguel Blanco Performing Organization Address [facility] [place] [address] COPY RECEIVED FROM: (10/09/2019 10:24 AM CDT)Only the most recent of2 results within the time period is included. Pathologist Sig [employer] Copy received from: [facility] Comment: ERIKA MALDONADO CARDIO [address] [facility] [address] [place] [address] Specimen Performing Organization Address City/[facility] Centercode Phone Number [facility] LDL-CHOLESTEROL ([facility]LEX [facility]) (10/09/2019 10:24 AM CDT)Only the most recent of2 resultswithin the time period is included. LDL cholesterol 58 mg/dL (calc) [facility] calculated Comment: [place] Reference range: <100 Desirable range <100 mg/dL for primary prevention; <70 mg/dL for patients with CHD or diabetic patients with > or = 2 CHD risk factors. LDL-C is now calculated using the Rj-Frias calculation, which is a validated novel method providi ng better accuracy than the Friedewald equation in the estimation of LDL-C. Rj KEYES et al. ANDREA. 2013;310(19): 3712-9594 (http://education.Cint/faq/HME995) Specimen Resulting Agency Comment Performing Organization Information: Site ID: [facility] Name: [facility] Address: [address] [place] [phone] Director: José Miguel Blanco Performing Organization Address [facility] [place] [address] COPY(IES) SENT TO: (10/09/2019 10:24 AM CDT)Only the most recent of2 results within the time period is included. Pathologist Sig nature Copies/mL [facility] Comment: [facility] CARDIO [address] [facility] [address] [place] [address] Specimen Performing Organization Address [facility] Phone Number [facility] Triglycerides (10/09/2019 10:24 AM CDT)Only the most recent of2 resultswithin the time period is included. Pathologist Sig nature Triglycerides 53 <150 mg/dL [employer] [place] Specimen Resulting Agency Comment Performing Organization Information: Site ID: [facility] Name: [facility] Address: [address] [place] [phone] Director: José Miguel Blanco Performing Organization Address [facility] [place] [address] HDL cholesterol (10/09/2019 10:24 AM CDT)Only the most recent of2 resultswithin the time period is included. Pathologist Sig nature HDL cholesterol 84 > OR = 50 mg/dL [employer] [facility] Specimen Resulting Agency Comment Performing Organization Information: Site ID: [facility] Name: [facility] Address: [address] [place] [phone] Director: José Miguel Blanco Performing Organization Address [facility] Phone Number [employer] [place] [phone] Cholesterol (10/09/2019 10:24 AM CDT)Only the most recent of2 resultswithin the time period is included. Pathologist Sig nature Cholesterol, total 155 <200 mg/dL [facility] Specimen Resulting Agency Comment Performing Organization Information: Site ID: A Name: [facility] Address: [address] [place] [phone] Director: José Miguel Blanco Performing Organization Address [facility] Centercode Phone Number [facility] [place] [address] Lipid panel (10/09/2019 10:24 AM CDT)Only the most recent of3 resultswithin the time period is included. Cholesterol, total 155 <200 mg/dL [facility] HDL cholesterol 84 > OR = 50 [facility] mg/dL [place] Triglycerides 53 <150 mg/dL [facility] LDL cholesterol 58 mg/dL (calc) [facility] calculated Comment: [place] Reference range: <100 Desirable range <100 mg/dL for primary prevention; <70 mg/dL for patients with CHD or diabetic patients with > or = 2 CHD risk factors. LDL-C is now calculated using the Rj-Altagracia calculation, which is a validated novel method providi ng better accuracy than the Friedewald equation in the estimation of LDL-C. Rj KEYES et al. ANDREA. 2013;310(19): 2707-7234 (http://education.Shake.Blipify/faq/CHR598) Cholesterol/HDL 1.8 <5.0 (calc) [facility] Non-HDL cholesterol 71 <130 mg/dL [employer] Comment: (calc) [place] For patients with diabetes plus 1 major ASCVD risk factor, treating to a non-HDL-C goal of <100 mg/dL (LDL-C of <70 mg/dL) is considered a therapeutic option. Specimen Blood Resulting Agency Comment Performing Organization Information: Site ID: [id number] Name: [facility] Address: [address] [place] [phone] Director: José Miguel Blanco Performing Organization Address [facility]/Zipcode Phone Number [employer] [address] [address] [address] cardiac calcium score (01/11/2019 10:15 AM CDT) Specimen Narrative Performed At EXAMINATION: CT CARDIAC CALCIUM SCORE RADIANT CLINICAL HISTORY: R07.89 Other chest pain, Z13.6 Enc ounter for screening for cardiovascular disorders, family history of CAD COMPARISON: None. CT imaging was performed with iterative reconstruction techniques and/or automated exposure control to reduce rad iation dose. IMPRESSION: Sequential 2.[address] cuts were obtained through the est using GE LightSpeed VCT [address] scanner with ECG gating. In teractive image viewing and volumetric display and analysis were also performed. The CAC score was quantified using the Agatston scoring method. Agatston total coronary artery calcium s core: 1 Left Main (LM): 0 Left Anterior Descending (LAD): 1 Left Circumflex (LCx): 0 Right Coronary Artery (RCA): 0 Posterior Descending Artery (PDA): 0 Agatston Calcium Score (total) Extent of Atherosclerosis 0-Normal 1-10 - Minimal extent of atherosclerosis 10-100 - Mild extent of atherosclerosis 100-400 - Moderate extent of atheroscler osis > 400 - Severe extent of atherosclerosis RECOMMENDATION: A score of 1 places the patient in the 30th percentile rank. That means 70% of the females at the ages from 66 5 70 have a higher calcium score. Intensive risk factor modification is indicated to pre vent further progression (>0). Please contact your ph ysician regarding these results. INCIDENTAL FINDINGS: Small hiatal hernia. [facility]-[id number] Procedure Note Interface, Radiology Results Incoming - 01/11/2019 12:48 PM CDT EXAMINATION: CT CARDIAC CALCIUM SCORE CLINICAL HISTORY: R07.89 Other chest pa in, Z13.6 Encounter for screening for cardiovascular disorders, family history of CAD COMPARISON: None. CT imaging was performed with iterative reconstruction techniques and/or automated exposure control to reduce radiation dose. IMPRESSION: Sequential 2.[address] cuts were obtained through the chest using GE LightSpeed VCT [address] scanner with ECG gating. Interactive image viewing and volumetric display and analysis were also performed. The CAC score was quantified using the Agatston scoring method. Agatston total coronary artery calcium s core: 1 Left Main (LM): 0 Left Anterior Descending (LAD): 1 Left Circumflex (LCx): 0 Right Coronary Artery (RCA): 0 Posterior Descending Artery (PDA): 0 Agatston Calcium Score (total) Extent of Atherosclerosis 0-Normal 1-10 - Minimal extent of atherosclerosis 10-100 - Mild extent of atherosclerosis 100-400 - Moderate extent of atheroscler osis > 400 - Severe extent of atherosclerosis RECOMMENDATION: A score of 1 places the patient in the 3 0th percentile rank. That means 70% of the females at the ages from 66 570 have a higher calcium score. Intensive risk factor modification is in dicated to prevent further progression (>0). Please contact your physician regarding these results. INCIDENTAL FINDINGS: Small hiatal hernia. [facility]-[id number] Performing Organization Address City/State/Zipcode Phone Number [employer] [address] [place] [address] Echocardiogram complete w contrast and 3D if needed (01/02/2019 11:11 AM CDT) Specimen Narrative Performed At [facility] Echo cardiography Report Pat.Name: YURY RODRIGUEZ Pat.ID: [id number] .Date: 01/02/2019 Exam Time: 10:17:00 AM Study Type:Routine Echo Height: 63in Weight: 170lb BSA: 1.81 m2 Age: 4 1950,68Y Sex: FEMALE BP: 162/88 Sonogrphr: Mahnaz Henson, RCS, RCCS, CCT Pat. Stat.:Outpatient Room: [address] Vol: [facility], Study Sta tus:Final Echo Event ID:[id number] Order ID: [id number] Reason for Study:Abnormal EKG [R94.31 (I CD-10-CM)]; Cerebrovascular accident (CVA), unspecifiedmechanism (HCC) [I63.9 (ICD-1 0-CM)] Procedures:2D Echo, Colorflow Doppler Race: D SUMMARY: LV EF is normal. Estimated EF is 60-64%. RV systolic function is normal. LV filling pressure is normal. Estimated PA systolic pressure is 30 mm Hg, assuming a mean RAP of 5 mmHg. FINDINGS: LV: LV size is normal. LV EF is normal. Difficult to assess regional wall motion; however it appe ars grossly normal. Estimated EF is 60-64%. RV: RV size is normal. RV systo lic function is normal. LA: LA size is normal. RA: RA size is normal. AO: Aortic root diameter is nor mal. KARLA: No pericardial effusion. AV: No structural AV abnormalit ies noted. MV: Focal calcification of mitr al leaflets. A trace of mitral regurgitation. PV: No structural PV abnormalit ies noted. TV: No structural TV abnormalit ies noted. A trace of tricuspid regurgitation [place]: LV relaxation is reduced, ap propriate for age. LV filling pressure is normal. Other: Estimated PA systolic pressu re is 30 mmHg, assuming a mean RAP of 5 mmHg. MEASUREMENTS: 2D Parasternal Long Mio LVOT 1.9 cm LA Ds 3.3 cm LVIDd 4.6 cm Index 2.6 cm/m Ao An 2.3 cm LVIDs 3.1 cm Ao Rtd 3 cm Index 1.6 cm/m LV%fs 33 % LV Mas s 81.3 g (87-129) IVSd 0.6 cm LVM In dex 44.9 g/m2 LVPWd 0.6 cm RWT 0.3 LA Volume LA Vol 55.7 ml Index 30.8 ml/m DOPPLER LVOT Stroke Vol LVOT 1.9 cm LVOT C O 4.9 l/min LVOT TVI 23.7 cm LVOT CI 2.7 l/m/m2 LVOT Tm 362 msec HR 73 bpm LVOT SV 67.3 ml Signed 01/02/2019 04:25 PM Hong Flynn MD Procedure Note Interface, Radiology Results In - 2018 4:25 PM CDT [facility] Echocardiography Report Pat.Name: YURY RODRIGUEZ Pat.I D: [id number] St.Date: 01/02/2019 Exam Time: 10:17:00 AM Study Type:Routine Echo Heigh t: 63in Weight: 170lb BSA: 1.81 m2 Age: 5 1950,68Y Sex: FEMALE BP: 162/88 Sonogrphr: Mahnaz Henson, RCS, RCCS, CCT Pat. Stat.:Outpatient Room: [address] Vol: [facility], Study Status:Final Echo Event ID:[id number] Order ID: [id number] Reason for Study:Abnormal EKG [R94.31 (I CD-10-CM)]; Cerebrovascular accident (CVA), unspecifiedmechanism (HCC) [I63.9 (ICD-1 0-CM)] Procedures:2D Echo, Colorflow Doppler Race: D SUMMARY: LV EF is normal. Estimated EF is 60-64%. RV systolic function is normal. LV filling pressure is normal. Estimated PA systolic pressure is 30 mm Hg, assuming a mean RAP of 5 mmHg. FINDINGS: LV: LV size is normal. LV EF is no rmal. Difficult to assess regional wall motion; however it appears grossly normal. Estimated EF is 60-64%. RV: RV size is normal. RV systolic function is normal. LA: LA size is normal. RA: RA size is normal. AO: Aortic root diameter is normal . KARLA: No pericardial effusion. AV: No structural AV abnormalities noted. MV: Focal calcification of mitral leaflets. A trace of mitral regurgitation. PV: No structural PV abnormalities noted. TV: No structural TV abnormalities noted. A trace of tricuspid regurgitation [place]: LV relaxation is reduced, appr opriate for age. LV filling pressure is normal. Other: Estimated PA systolic pressure is 30 mmHg, assuming a mean RAP of 5 mmHg. MEASUREMENTS: 2D Parasternal Long Mio LVOT 1.9 cm LA D s 3.3 cm LVIDd 4.6 cm Inde x 2.6 cm/m Ao An 2.3 cm LVIDs 3.1 cm Ao R td 3 cm Index 1.6 cm/m LV%fs 33 % LV M ass 81.3 g (87-129) IVSd 0.6 cm LVM Index 44.9 g/m2 LVPWd 0.6 cm RWT 0.3 LA Volume LA Vol 55.7 ml Inde x 30.8 ml/m DOPPLER LVOT Stroke Vol LVOT 1.9 cm LVOT CO 4.9 l/min LVOT TVI 23.7 cm LVOT CI 2.7 l/m/m2 LVOT Tm 362 msec HR 73 bpm LVOT SV 67.3 ml Signed 01/02/2019 04:25 PM Hong Flynn MD Performing Organization Address City/State/Zipcode Phone Number [facility] [address] [place] [address] CBC with platelet and differential (12/26/2018 11:11 AM CDT) [facility] nature WBC 5.8 3.4 - 10.8 x10E3/uL [facility] RBC 4.56 3.77 - 5.28 x10E6/uL [facility] HGB 13.5 11.1 - 15.9 g/dL [facility] HCT 41.0 34.0 - 46.6 % [facility] MCV 90 79 - 97 fL [facility] MCH 29.6 26.6 - 33.0 pg [facility] MCHC 32.9 31.5 - 35.7 g/dL [facility] RDW 14.2 12.3 - 15.4 % [facility] Platelet count 318 150 - 450 x10E3/uL [facility] Neutrophils 60 Not Estab. % [facility] Lymphocytes 31 Not Estab. % [facility] Monocytes 8 Not Estab. % [facility] Eosinophils 1 Not Estab. % [facility] Basophils 0 Not Estab. % [facility] Neutrophils, absolute 3.5 1.4 - 7.0 x10E3/uL [facility] Lymphocytes, absolute 1.8 0.7 - 3.1 x10E3/uL [facility] Monocytes, absolute 0.4 0.1 - 0.9 x10E3/uL [facility] Eosinophils, absolute 0.1 0.0 - 0.4 x10E3/uL [facility] Basophils, absolute 0.0 0.0 - 0.2 x10E3/uL [facility] Immature granulocytes 0 Not Estab. % [facility] Immature grans (abs) 0.0 0.0 - 0.1 x10E3/uL [facility] Specimen Blood Narrative Performed At Performed at: [address] [place] [address] [id number] [address] Appraiser: Kris Pal MD, Phone: [phone] Performing Organization Address [facility] Phone Number [facility] Thyroid stimulating hormone (12/26/2018 11:11 AM CDT) Pathologist Sig nature TSH 1.480 0.450 - 4.500 uIU/mL [facility] Specimen Blood Narrative Performed At Performed at: [facility] [address] [place] [phone] Appraiser: Kris Pal MD, Phone: [phone] Performing Organization Address [facility] Phone Number [facility] Basic metabolic panel (12/26/2018 11:11 AM CDT) Pathologist Sig nature Glucose 85 65 - 99 mg/dL [facility] BUN 15 8 - 27 mg/dL [facility] Creatinine 0.67 0.57 - 1.00 mg/dL [facility] EGFR Non-Afr. Kos[place] 91 >59 mL/min/1.73 [facility] EGFR 105 >59 mL/min/1.73 [facility] BUN/creatinine ratio 22 12 - 28 [facility] Sodium 141 134 - 144 mmol/L [facility] Potassium 4.5 3.5 - 5.2 mmol/L [facility] Chloride 101 96 - 106 mmol/L [facility] CO2 24 20 - 29 mmol/L [facility] Calcium 9.6 8.7 - 10.3 mg/dL [facility] Specimen Blood Narrative Performed At Performed at: 01 - [facility] [address] [place], [place] [id number] [address] Appraiser: Kris Pal MD, Phone: [phone] Performing Organization Address City/State/Zipcode Phone Number [id number] ECG 12 lead (12/26/2018 10:25 AM CDT) Pathologist Sig nature Ventricular rate 89 [facility] Atrial rate 89 [facility] AR interval 132 [facility] QRSD interval 78 [facility] QT interval 360 [facility] QTC interval 438 [facility] P axis 1 69 [facility] QRS axis 1 86 [facility] T wave axis 69 [facility] EKG impression Normal sinus [facility] rhythm-Normal ECG-No previous ECGs available-Electronicall y Signed By Anna JOHN, [facility] ([id number]) on 12/26/2018 12:08:19 PM Specimen Narrative Performed At This result has an attachment that is no t available. 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
[2019-11-21 03:34] VITALS: O2SAT 96
[2019-11-21 03:37] VITALS: BP 131/63
[2019-11-21 03:52] VITALS: TEMP 97.8
--- NOTE | 2019-11-21 08:32 | RAD REPORT ---
EXAM DESCRIPTION: CT - Stone Protocol - 11/21/2019 5:25 am CLINICAL HISTORY: 69-year-old female with bilateral mid back pain with nausea and vomiting, previous lithotripsy and history of kidney stones TECHNIQUE: Axial CT imaging of the abdomen and pelvis was performed without oral or intravenous cont rast. Sagittal and coronal reconstructed images were then performed. The CT study is performed acco rding to ALARA (as low as reasonably achievable) or ALARA/IMAGE GENTLY, with automatic adjustment of mA and/or kV according to patient size. Performed on: 11/20/2019 at 11:46 PM COMPARISON: 08/13/2019. FINDINGS: Lung bases: The lung bases are clear. There is minimal bibasilar atelectasis and/or fibros is. Liver: The liver is normal in size and configuration. No focal hepatic abnormalities are appreciated on this unenhanced scan. Liver attenuation is within normal limits. Spleen: The spleen is normal is size, configuration and attenuation. No focal splenic abnormalities a re appreciated on this unenhanced scan. Gallbladder and bile duct: The gallbladder is well distended and unremarkable. There is no biliary ductal dilatation. Pancreas: The pancreas is grossly normal in size and configuration. Adrenal Glands: The adrenal glands are normal in size and configuration. Kidneys: The kidneys are normal in size and configuration. There is mild left-sided hydronephrosis an d hydroureter with minimal perinephric and periureteral inflammation secondary to a 3 x 3 x 5 mm calc ification in the left ureterovesical junction. Findings are similar when compared to the prior study. There is bilateral nephrolithiasis also similar when compared to the prior study. No additional curt l abnormalities are identified. Stomach: The stomach is grossly normal. There is a moderate hiatal hernia. Bowel: The bowel gas pattern is non specific and non obstructive. There is scattered colonic divertic ulosis. Appendix: The appendix is normal. Free air: There is no evidence of free air. Free fluid: There is no evidence of free fluid. Vasculature: The aorta is normal in caliber and contour. The inferior vena cava is grossly unremarkab le. Lymphadenopathy: No pathologic lymphadenopathy is identified. Bladder: The bladder is incompletely distended on this examination. As described above, there is a ca lcification in the left ureterovesical junction. Reproductive: The uterus is grossly within normal limits. Bones: No acute osseous abnormalities are identified. Soft tissues: No focal soft tissue abnormalities are identified. IMPRESSION: 1. There is mild left-sided hydronephrosis and hydroureter with minimal perinephric and periureteral inflammation secondary to a 3 x 3 x 5 mm calcification in the left ureterovesical juncti on, similar when compared to the prior study. 2. Bilateral nephrolithiasis. 3. Scattered colonic diverticulosis. 4. Moderate hiatal hernia. Electronically signed by: Camila Sanchez DO 11/21/2019 12:29 AM CDT Due to temporary technical issues with the PACS/Fluency reporting system, reports are being signed by the in house radiologist without review as a courtesy to ensure prompt reporting. The interpreting r adiologist is fully responsible for the content of the report.
== END 2019-11-21 02:27 | disposition home or self-care (01) ==
LOC: ER 22:44
DX: N20.1 Calculus of ureter (principal); Z87.442 Personal history of urinary calculi; Z88.2 Allergy status to sulfonamides; Z88.7 Allergy status to serum and vaccine
CPT/HCPCS: 96361; 85025; 80048; 36415; 80076; 83690; 76377; 74176; 96375; 96374; 99284; J3010; J7030; J2405; 81003; 81015

== ENCOUNTER 2023-04-09 12:03 | Emergency (ER) | payer BC, OTHER ==
--- OUTSIDE RECORDS SUMMARY | 2023-04-09 12:07 | XMS REPORT | Continuity of Care Document ---
:1950 Author Organization [facility] t Address [address] [place] [address] [place] [id number] Care Team Providers Name Role Phone Pcp, Patient Does Not Have A Primary Care Physician [id number] GABRIELLE CABRERA Attending Clinician Unavailable Gabrielle Cabrera MD Attending Clinician Doctor Unassigned, [place] Attending Clinician Unavailable Isaias Wiley Attending Clinician Unavailable VERONIQUE ARBOLEDA Attending Clinician Unavailable ISAIAS WILEY Attending Clinician Unavailable Ceferino Gibbs DO Attending Clinician JUANCHO ARREGUIN Attending Clinician Unavailable Kerry Coffey Attending Clinician Unavailable Isaias Wiley Admitting Clinician Unavailable Payers Payer Name Policy Type Policy Number Effective Date Expiration Date S [facility] MEDICARE PART A \\T\\ [id number] 2016 B 00:00:00 BC[employer] TRADITIONAL [id number] 2016 00:00:00 Problems Condition Condition Condition Status Onset Resolution Last Treating Co mments Source Name Details Category Date Date Treatment Clinician Date 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 1-18 st calcificat calcificat 00:00: Ho spita ion ion 00 l 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 Utility Allergies, Adverse Reactions, Alerts Allergy Allergy Status Severity Reaction(s) Onset Inactive Treating Comm ents Source Name Type Date Date Clinician Sulfpolo DA Active SV SWELLING 2020-05 [facility] (Sulfona 05-23 [place] mide 00:00: [facility] Antibiot 00 are ics) [facility] Propensi Active Rash 2014-05 Univer s a ty to 05-26 ity of Vaccine adverse 00:00: [place] Tr-S 09 reaction 00 Medical (Pf) s Branch INFLUENZ DRUG Active Rash 2014-05 Univers A 05-26 ity of VACCINE 00:00: [place] TR-S 09 00 Medical (PF) Branch Influenz Propensi Active Rash 2014-05 Method i a ty to 05-26 st Vaccine adverse 00:00: Hospita Tr-S 09 reaction 00 l (Pf) s to drug Sulfamet Propensi Active Rash Univer s hazine ty to 07-06 ity of adverse 00:00: [place] reaction 00 Medical s Branch SULFAMET DRUG Active Rash Univers HAZINE INGREDI 07-06 ity of 00:00: [place] 00 Medical Branch Sulfamet Propensi Active Rash Method i hazine ty to 07-06 st adverse 00:00: Hospita reaction 00 l s to drug Family History Family Member Diagnosis Comments Start Date Stop Date Source Natural father Heart attack [facility] Natural father Heart failure [facility] Natural father Hypertension [facility] Natural mother Alzheimer's [facility] Natural mother Diabetes [facility] Paternal uncle Heart disease [facility] Social History Social Habit Start Date Stop Date Quantity Comments Source Gender identity Universit y of [facility] Sexual orientation [facility] Exposure to 2022-04-26 2022-05-06 Not sure University SARS-CoV-2 (event) 00:00:00 12:53:00 [facility] Alcohol intake 2021-03-06 2021-03-06 Current drinker Metho dist 00:00:00 00:00:00 of alcohol Hospital (finding) History of Social 2021-03-06 2021-03-[address] function 00:00:00 00:00:00 Hospital Tobacco use and 2018-04-18 2018-04-18 Smokeless Sikhism exposure 00:00:00 00:00:00 tobacco non-user Hospital Alcohol Comment 2018-04-18 2018-04-18 social-rare Methodis t 00:00:00 00:00:00 Hospital Sex Ass[birth year] At [birth year] Universit y of 00:00:00 00:00:00 [facility] Smoking Status Start Date Stop Date Source Never smoked tobacco [facility]ital Medications Ordered Filled Start Stop Current Ordering Indication Dosage Frequency Signature Comments Components Source Medication Medication Date Date Medication? Clinician (SIG) Name Name multivitami 2020-05 Yes 1{tbl} QD Take 1 Me thodi n 0-[address] (THERAGRAN) 09:24: mouth Hospi ta tablet 08 daily. l naproxen 2020-05 Yes Take by Method i sodium 0-[address] (ALEVE 09:24: needed. Hospita ORAL) 08 l aspirin 2020-05 Yes 81mg Take 81 mg Meth nirav (ECOTRIN) 0-[address] 81 MG 09:24: as needed. Hospit a enteric 08 Every now l coated and then tablet ferrous 2020-05 Yes 325mg QD Take 325 Metho di sulfate 325 0-[address] (65 FE) MG 09:24: mouth Hospit a tablet 08 daily with l breakfast. carboxymeth 2018-[address] Un vitaliy ylcellulose 0-18 each eye. ity of sodium 15:05: [place] (REFRESH 24 Medical OPHTHALMIC) [place] carboxymeth 2018-[address] in Un vitaliy ylcellulose 0-18 each eye. ity of sodium 15:05: [place] (REFRESH 24 Medical OPHTHALMIC) Branch carboxymeth 2019-[address] in Un vitaliy ylcellulose 0-18 each eye. ity of sodium 15:05: [place] (REFRESH 24 Medical OPHTHALMIC) Branch carboxymeth 2018- Yes Place in Un vitaliy ylcellulose 0-18 each eye. ity of sodium 15:05: [place] (REFRESH 24 Medical OPHTHALMIC) Branch carboxymeth 2018-[address] in Un vitaliy ylcellulose 0-18 each eye. ity of sodium 15:05: [place] (REFRESH 24 Medical OPHTHALMIC) Branch carboxymeth 2018- Yes Place in Un vitaliy ylcellulose 0-18 each eye. ity of sodium 10:05: [place] (REFRESH 24 Medical OPHTHALMIC) Branch carboxymeth 2018-[address] in Un vitaliy ylcellulose 0-18 each eye. ity of sodium 10:05: [place] (REFRESH 24 Medical OPHTHALMIC) Branch carboxymeth 2018-[address] in Un vitaliy ylcellulose 0-18 each eye. ity of sodium 10:05: [place] (REFRESH 24 Medical OPHTHALMIC) Branch carboxymeth 2018-[address] in Un vitaliy ylcellulose 0-18 each eye. ity of sodium 10:05: [place] (REFRESH 24 Medical OPHTHALMIC) Branch carboxymeth 2018-[address] in Un vitaliy ylcellulose 0-18 each eye. ity of sodium 10:05: [place] (REFRESH 24 Medical OPHTHALMIC) Branch carboxymeth 2018-[address] in Un vitaliy ylcellulose 0-18 each eye. ity of sodium 10:05: [place] (REFRESH 24 Medical OPHTHALMIC) Branch carboxymeth 2018-[address] in Un vitaliy ylcellulose 0-18 each eye. ity of sodium 10:05: [place] (REFRESH 24 Medical OPHTHALMIC) Branch loratadine 0 Yes 10mg Take 10 mg U nivers (CLARITIN) 4-09 by mouth ity o f 10 mg 15:39: at bedtime [place] tablet 11 as needed Medical for Branch Allergies. loratadine 2019-0 Yes 10mg Take 10 mg U nivers (CLARITIN) 4-09 by mouth ity o f 10 mg 15:39: at bedtime [place] tablet 11 as needed Medical for Branch Allergies. loratadine 2019-0 Yes 10mg Take 10 mg U nivers (CLARITIN) 4-09 by mouth ity o f 10 mg 15:39: at bedtime [place] tablet 11 as needed Medical for Branch Allergies. loratadine 2018-0 Yes 10mg Take 10 mg U nivers (CLARITIN) 4-09 by mouth ity o f 10 mg 15:39: at bedtime [place] tablet 11 as needed Medical for Branch Allergies. loratadine 2018-0 Yes 10mg Take 10 mg U nivers (CLARITIN) 4-09 by mouth ity o f 10 mg 15:39: at bedtime [place] tablet 11 as needed Medical for Branch Allergies. loratadine 2018-0 Yes 10mg Take 10 mg U nivers (CLARITIN) 4-09 by mouth ity o f 10 mg 10:39: at bedtime [place] tablet 11 as needed Medical for Branch Allergies. loratadine 2018-0 Yes 10mg Take 10 mg U nivers (CLARITIN) 4-09 by mouth ity o f 10 mg 10:39: at bedtime [place] tablet 11 as needed Medical for Branch Allergies. loratadine 2018-0 Yes 10mg Take 10 mg U nivers (CLARITIN) 4-09 by mouth ity o f 10 mg 10:39: at bedtime [place] tablet 11 as needed Medical for Branch Allergies. loratadine 2018-0 Yes 10mg Take 10 mg U nivers (CLARITIN) 4-09 by mouth ity o f 10 mg 10:39: at bedtime [place] tablet 11 as needed Medical for Branch Allergies. loratadine 2018-0 Yes 10mg Take 10 mg U nivers (CLARITIN) 4-09 by mouth ity o f 10 mg 10:39: at bedtime [place] tablet 11 as needed Medical for Branch Allergies. loratadine 2018-0 Yes 10mg Take 10 mg U nivers (CLARITIN) 4-09 by mouth ity o f 10 mg 10:39: at bedtime [place] tablet 11 as needed Medical for Branch Allergies. loratadine 2018-0 Yes 10mg Take 10 mg U nivers (CLARITIN) 4-09 by mouth ity o f 10 mg 10:39: at bedtime [place] tablet 11 as needed Medical for Branch Allergies. ampicillin 2018- Yes Univers 500 mg 0-04 ity of capsule 00:00: [place] 00 Medical Branch ampicillin 2018-1 Yes Univers 500 mg 0-04 ity of capsule 00:00: [place] 00 Medical Branch ampicillin 2018-1 Yes Univers 500 mg 0-04 ity of capsule 00:00: [place] 00 Medical Branch ampicillin 2018-1 Yes Univers 500 mg 0-04 ity of capsule 00:00: [place] Medical [facility] ampicillin 2018- Yes Univers 500 mg 0-04 ity of capsule 00:00: [place] [facility] ampicillin 2018- Yes Univers 500 mg 0-04 ity of capsule 00:00: [place] Medical [facility] ampicillin 2018- Yes Univers 500 mg 0-04 ity of capsule 00:00: [place] Medical [facility] ampicillin 2018-1 Yes Univers 500 mg 0-04 ity of capsule 00:00: [place] Medical [facility] ampicillin 2018- Yes Univers 500 mg 0-04 ity of capsule 00:00: [place] Medical [facility] ampicillin 2018- Yes Univers 500 mg 0-04 ity of capsule 00:00: [place] Medical [facility] ampicillin 2018- Yes Univers 500 mg 0-04 ity of capsule 00:00: [place] Medical [facility] ampicillin 2018- Yes Univers 500 mg 0-04 ity of capsule 00:00: [place] [facility] Branch Immunizations Ordered Filled Date Status Comments Source Immunization Name Immunization Name TDAP 2012-08-29 Completed University of 00:00:00 [facility] TDAP 2012-08-29 Completed University of 00:00:00 [facility] TDAP 2012-08-29 Completed University of 00:00:00 [facility] TDAP 2012-08-29 Completed University of 00:00:00 [facility] TDAP 2012-08-29 Completed University of 00:00:00 [facility] TDAP 2012-08-29 Completed University of 00:00:00 [facility] TDAP 2012-08-29 Completed University of 00:00:00 [facility] TDAP 2012-08-29 Completed University of 00:00:00 [facility] TDAP 2012-08-29 Completed University of 00:00:00 [facility] TDAP 2012-08-29 Completed University of 00:00:00 [facility] TDAP 2012-08-29 Completed University of 00:00:00 [facility] TDAP Unknown Completed [facility] Tdap Unknown Completed [facility] Vital Signs Vital Name Observation Time Observation Value Comments Source Body weight 2022-11-04 16:25:00 82.101 kg Universi [facility] BMI 2022-11-04 16:25:00 29.66 kg/m2 Universi [facility] Body weight 2020-12-18 18:15:00 82.101 kg Universi ty [facility] BMI 2020-12-18 18:15:00 29.66 kg/m2 Universi [facility] [place] [facility] Procedures Procedure Date / Time Performed Performing Clinician [facility] e OCT, OPTIC NERVE - OU 2022-11-04 17:00:59 [facility] Medical Branch AUTOMATED VISUAL 2022-11-04 17:00:49 Gabrielle Cabrera [facility] FIELD, EXTENDED - OU - Medical B ranch BOTH EYES ASSIGNMENT OF BENEFITS 2022-11-04 14:53:34 Doctor Unassigned, No [facility] ASSIGNMENT OF BENEFITS 2022-05-06 18:54:24 Doctor Unassigned, No [facility] CONSENT/REFUSAL FOR 2022-05-06 18:54:03 Doctor Unassigned, No [facility] DIAGNOSIS AND [facility] TREATMENT OU SPECTRALIS FEB 20222022-05-06 00:00:00 [facility] [place] OPTIC NERVE, BOTH EYES Medical B ranch [id number] 2021-03-24 00:00:00 ARTHUR [facility] [id number] 2021-03-24 00:00:00 ARTHUR [facility] ASSIGNMENT OF BENEFITS 2020-12-18 17:59:22 Doctor Unassigned, No [facility] OU SPECTRALIS FEB 20212020-12-18 00:00:00 [facility]elle [facility] [place] OPTIC NERVE, BOTH EYES Medical B ranch Plan of Care Planned Activity Planned Date Details Comments Source Future Scheduled 2023-03-11 Hepatitis C screening [facility] Test 21:58:25 (procedure) [code = 960772997] Future Scheduled 2023-03-11 BREAST CANCER [facility] Test 21:58:25 SCREENING [code = BREAST CANCER SCREENING] Future Scheduled 2023-03-11 SHINGLES VACCINES (1 [facility] Test 21:58:25 of 2) [code = SHINGLES VACCINES (1 of 2)] Future Scheduled 2023-03-11 65+ PNEUMOCOCCAL [facility] Test 21:58:25 VACCINE (1 - PCV) [code = 65+ PNEUMOCOCCAL VACCINE (1 - PCV)] Future Scheduled 2023-03-11 COVID-19 VACCINE (3 - [facility] Test 21:58:25 season) [code = COVID-19 VACCINE ( season)] Future Scheduled 2023-03-11 INFLUENZA VACCINE (#1) [facility] Test 21:58:25 [code = INFLUENZA VACCINE (#1)] Encounters Start End Encounter Admission Attending Care Care Encounter Source Date/Time Date/Time Type Type Clinicians Facility Department ID 2022-11-04 2022-11-04 Outpatient R GERMANIA [facility] [id number] Univers 10:15:00 12:12:23 [facility] 2022-11-04 2022-11-04 Office Cabrera, [facility] [id number] Univers 10:15:00 12:12:23 Visit [facility] [id number] i ty [id number] [id number] [address] 2022-11-04 2022-11-04 Orders Doctor SHINE [id number] Univers 00:00:00 00:00:00 Only Unassigned, BANG [id number] ity [place] [facility] 4.2.7.2.686 [place] as [id number] [address] 2022-05-06 2022-05-06 [facility] [id number] Univers 13:15:00 14:00:14 Visit [facility] [id number] i ty [place] [id number] [address] 2022-05-06 2022-05-06 [id number] Univers 13:15:00 14:00:[facility] 2022-05-06 2022-05-06 Orders Doctor SHINE [id number] Univers 00:00:00 00:00:00 Only Unassigned, BANG [id number] [place]y [place] [facility] 4.2.7.2.686 Julian as [id number] [facility] 009 Branch 2021-03-24 2021-03-26 Inpatient EL WileyIsaias altamirano [facility].01 [id number] [facility] 20:21:00 15:59:00 09 [facility] 2021-03-24 2021-03-24 Outpatient WileyIsaias altamirano [facility] REF [id number] [facility] 19:06:00 19:06:00 03 [facility] are [facility] 2021-03-06 2021-03-06 Outpatient [facility] [id number] [place] 00:00:00 00:00:00 A, [facility]MED [facility] 2021-03-06 2021-03-06 Outpatient [facility] [id number] [place] 00:00:00 00:00:00 A, MOHAMMED 343 Me [facility] 2021-03-03 2021-03-03 Outpatient [facility] [id number] [place] 00:00:00 00:00:00 A, MOHAMMED 616 Me odi 2021-02-26 2021-02-26 Outpatient WILEY, ISAIAS [facility] [id number] [place] 00:00:00 00:00:00 983 Method i 2021-02-26 2021-02-26 Outpatient WILEY, ISAIAS [facility] [id number] [place] 00:00:00 00:00:00 182 Method i 2020-12-18 2020-12-18 Outpatient Chalino CABRERA [facility] [id number] Univers 13:15:00 13:15:00 GABRIELLE [facility] 2020-12-18 2020-12-18 [facility] [id number] Univers 12:59:09 13:14:09 Visit Gabrielle HERNANDEZ 350.1.13.10 i ty of EYE 4.2.7.2.686 [facility] [place] [facility] [id number] [facility] 136 Branch 2020-12-18 2020-12-18 Orders Doctor RIOJAS [id number] [place] [address] 00:00:00 00:00:00 Only Unassigned, BANG 350.1.13.10 ity [place] [facility] 4.2.7.2.686 [place] as [id number] [facility] 009 Branch 2020-11-17 2020-11-17 [facility] [id number] Univers 10:00:00 10:00:00 [facility] 2020-11-12 2020-11-12 Patient Doctor UNIVERSIT [id number] Univers 00:00:00 00:00:00 Secure Msg Unassigned, Y 350.1.13.10 ity of [place] [facility] 4.2.7.2.686 Julian as BANK [id number] [facility] BLDG. 136 Branch 2020-09-19 2020-09-19 [facility]patient [facility] [id number] Univers 09:30:00 09:30:00 [facility] 2020-07-21 2020-07-21 Patient [facility] [id number] Univers 00:00:00 00:00:00 Outreach Ceferino PRIMARY 350.1.13.10 i ty of [facility] 4.2.7.2.[place] [id number] [place] [address] 2020-06-24 2020-06-24 Outpatient [facility] [id number] [address] [place] [address] 00:00:00 00:00:00 JUANCHO 717 Method i 2020-06-24 2020-06-24 Outpatient [facility] [id number] [address] [place] [address] 00:00:00 00:00:00 JUANCHO [address] 2020-06-05 2020-06-05 Outpatient Chalino CABRERA [facility] [id number] Univers 13:45:00 13:45:00 [facility] 2020-04-03 2020-04-03 [facility] [id number] Univers 13:45:00 13:45:00 [facility] 2020-03-03 2020-03-03 [facility] [id number] Univers 10:15:00 10:15:00 [facility] 2020-02-07 2020-02-07 Outpatient R GERMANIA, [facility] [id number] [facility] 10:15:00 10:15:00 GABRIELLE [facility] 2019-12-06 2019-12-06 Outpatient R GERMANIA, [facility] [id number] [facility] 10:15:00 10:15:00 GABRIELLE [facility] 2019-11-05 2019-11-05 Patient Alexx, UN[facility]ERSIT [id number] Univers 00:00:00 00:00:00 Secure Msg Kerry A Y 350.1.13.10 ity of [facility] [id number] Julian as BANK [id number] [facility] BLDG. 136 [place] 2019-11-05 2019-11-05 Patient Alexx, UNIVERSIT [id number] 00:00:00 00:00:00 Secure Msg Kerry A Y 350.1.13.10 [facility] [id number] BANK [id number] BLDG. 136 2019-10-15 2019-10-15 Outpatient [facility] [id number] [place] 00:00:00 00:00:00 VERONIQUE Herrera 636 [facility] 2019-10-09 2019-10-09 Outpatient [facility] [id number] [place] 00:00:00 00:00:00 VERONIQUE Herrera [address] [address] Results Test Description Test Time Test Comments Results Result Comments Source SURGICAL 2021-03-31 15:50:00 Test Item Value Reference Range Interpretation Comme kat SURGICAL RUN DATE: (test 08/31/21 [facility] Hosp - LAB PAGE 1 RUN TIME: 1456 Specimen Inquiry RUN USER: INTERFACE code = PATIENT: KAREN THAO LOC: [id number] POD B U #: [id number] AGE/SX: 70/F ROOM: [facility] RE03/24/21REG DR: Isaias Wiley MD : 51 BED: 1 DIS: 03/26/21 STATUS: DIS IN TLOC: SPEC #: [id number] RECD: 03/25/21 STATUS: DARELL REHernandez #: [id number] ISAIAS: 03/24/211655 [facility] DR: Isaias Wiley MD ENTERED: 03/25/21 SP TYPE: SURGICAL OTHR DR: Kyle Hu MD ORDERED: [id number], ANATOMIC SPEC HISTOLOGY: TISSUE ID BLK PCS [place] LEV / PROCEDURE DISPOSITION ____ ___ ___ ___ ___ COLON NOS A 15 2 TISSUES: A. COLON NOS - Rt Colon ADDENDUM FINDINGS Addendum #2 Entered: 08/31/219130 I mmunohistochemistry (IHC) Testing for Mismatch Repair (MMR) ProteinsResults: MLH1: No loss of nuclear exp ression, 95%, 3+ intensityMSH2: No loss of nuclear expression, 96%, 3+ intensityMSH6: No loss of nu clear expression, 89%, 3+ intensityPMS2: No loss of nuclear expression, 87%, 3+ intensityBackground nonne oplastic tissue/internal control with intact nuclear expression. IHC interpretation: No loss of n uclear expression of MMR proteins: low probability of microsatellite instability-high (MSI-H). Pr ofessional Interpretation performed by [facility] [address] [place] [address], [address], [place] [address]. PLEASE SEE ORIGINAL REFERENCE LAB REPORT FOR DETAILS Addendum Signed SIGNATURE ON FILE Tez Moncada 1456 Addendum #1 Entered: 06/08/21-162 Signa trent Residual Disease Test Result (performed and reported by [facility]uro): - Final result summary: Signat era POSITIVE - 6.15 MTM/mL (Date: 03/19/2021) PLEASE SEE ORIGINAL REFERENCE LAB REPORT FOR DETAILS CONTINUED ON NEXT PAGE RUN DATE: 08/31/21 [place] [facility] - LAB PAGE 2 RUN TIME: 1456 Specimen Inquiry RUN USER: INTERFACE SPEC #: [id number] PATIENT: KAREN MCGILL #[id number] (Continued) ADDENDUM FINDINGS (Continued ) Addendum Signed SIGNATURE ON FILE AntwanTez mosqueda 06/08/[address] John adams iscussed the case with Aria CHANCE for Dr. Wiley on 03/31/21 at 1546. CAP CANCER SUMMARY CASE SUMMARY: (COLON AND RECTUM: Resection, Including Transanal Disk Excision of RectalNeoplasms) Standard(s) : AJCC-UICC 8 SPECIMEN Procedure: Right hemicolectomy Macroscopic Evaluation of Mesorectum: No t applicable Tumor Site: CecumHistologic Type: Adenocarcinoma Histologic Grade: G1, well differentiat ed Tumor Size: Greatest dimension in Centimeters (cm): 4 cmTumor Extent: Invades into muscularis prop hipolito Macroscopic Tumor Perforation: Not identified Lymphovascular Invasion: Not identified Perineural In vasion: Not identified Treatment Effect: No known presurgical therapy Margin Status for Invasive Carcinom a: All margins negative for invasive carcinoma +Closest Margin(s) to Invasive Carcinoma: Proximal : 5.5cm Distance from Invasive Carcinoma to Radial (Circumferential) Margin: Greater than 1 cm Margin Sta tus for Non-Invasive Tumor: All margins negative for high-grade dysplasia /intramucosal carcinoma and low-grade dysplasia Regional Lymph Node Status: Regional lymph nodes present All regional lymph nodes neg ative for tumor Number of Lymph Nodes with Tumor: Exact number (specify): 0 Number of Lymph Nodes Examin ed: Exact number (specify): 53 Tumor Deposits: Not identified Distant Site(s) Involved, if applica ble: Not applicable PATHOLOGIC STAGE CLASSIFICATION (pTNM, AJCC 8th Edition), [id number] Descrip tors: Not applicable pT Category: pT2: Tumor invades the muscularis propria pN Category: pN0: No regiona l lymph node metastasis pM Category: Not applicable - pM cannot be determined from the submitted specimen(s) CONTINUED ON NEXT PAGE RUN DATE: 08/31/21 [place] [facility] - LAB PAGE 3 RUN TIME: 1456 Specimen Inquiry RUN USER: INTERFACE SPEC #: [id number] PATIENT: KAREN MCGILL #[id number] (Continued) FINAL DIAGNOSIS A. RIGHT COL ON AND LYMPH NODES, RIGHT HEMICOLECTOMY: - INVASIVE ADENOCARCINOMA, WELL DIFFERENTIATED, [id number], (SE E CANCER CASE SUMMARY). - INVADES MUSCULARIS PROPRIA, 4 CM IN GREATEST DIMENSION. - NEGATIVE FOR LY MPHOVASCULAR INVASION AND PERINEURAL INVASION. - MARGINS OF RESECTION UNINVOLVED. - FIFTY THREE LY MPH NODES NEGATIVE FOR CARCINOMA, (0/53). GROSS DESCRIPTION Specimen A is received in formalin labeled "right colon and lymph nodes" and consists of a21 cm segment of large bowel with attached 3cm segment of small bowel containing 2 staplemargins. The attached adipose extends an additional 10.5 cm from the serosal surface. Theappendix is present and measures 3 cm in length with an average diameter of 0.6 cm. Thereis a dusky and disrupted area measuring 9.6 cm in greatest dimension in the cecum. Thespecimen is op ened longitudinally to reveal a mass in the cecum measuring 4 x 4 cmextending 1.2 cm from the mucosal surface and located 5.5 cm from the proximal margin, or 2cm from the ileocecal valve. The circumf erential margin is inked black and the specimen isserially sectioned to show no obvious invasion through the muscularis propria. Theattached adipose is then removed for lymph node dissection. Process Engineer s ections aresubmitted in 15 cassettes as follows: A1 distal margin, A2 proximal margin, A3 ileoceca lvalve, A4 appendix, A5-A8 sales donor recruitment representative mass, A9- A15 multiple possible lymph nodes. Technical compo nent performed at [facility] [facility], [facility], [address] MICROSCOPI C DESCRIPTION Unless gross only, the diagnosis is based upon microscopic examination. CLINICAL INFORMATION Colon Cancer Signed SIGNATURE ON FILE Jeffy Lopez* 03/31/21 1 550 END OF REPORT CBC W/AUTO [id number] 12:52:00 Test Item Value Reference Range Interpretation Comments WHITE BLOOD CELL (test code = 10.4 x10 3/uL 4.8-10.8 N WBC) RED BLOOD CELL (test code = 3.89 x10 6/uL 4.20-5.40 L RBC) HEMOGLOBIN (test code = HGB) 10.2 g/dL 12.0-16.0 L HEMATOCRIT (test code = HCT) 32.8 % 37.0-47.0 L MEAN CELL VOLUME (test code = 84.3 fL 81.0-99.0 N MCV) MEAN CELL HGB (test code = MCH) 26.2 pg 27-31 L MEAN CELL HGB CONCENTRATION 31.1 G/DL 33-36.5 L (test code = MCHC) RED CELL DISTRIBUTION WIDTH 19.7 % 12.9-16.9 H (test code = RDW) PLATELET COUNT (test code = 322 x10 3/uL 150-440 N PLT) MEAN PLATELET VOLUME (test code 9.8 fL 8.9-12.4 N = MPV) NEUTROPHIL % (test code = NT%) 77.8 % 42.2-75.2 H LYMPHOCYTE % (test code = LY%) 11.8 % 20.5-51.1 L MONOCYTE % (test code = MO%) 8.5 % 1.7-9.3 N EOSINOPHIL % (test code = EO%) 1.4 % 0.0-7.0 N BASOPHIL % (test code = BA%) 0.2 % 0-2.5 N NEUTROPHIL # (test code = NT#) 8.08 x10 3/uL 1.80-7.70 H LYMPHOCYTE # (test code = LY#) 1.23 x10 3/uL 1.00-4.80 N MONOCYTE # (test code = MO#) 0.88 x10 3/uL 0.00-0.80 H EOSINOPHIL # (test code = EO#) 0.15 x10 3/uL 0.00-0.45 N BASOPHIL # (test code = BA#) 0.02 x10 3/uL 0.0-0.20 N BASIC METABOLIC [id number] 05:26:00 Test Item Value Reference Range Interpretation Comments SODIUM (test code 141 mmol/L 136-145 N Please not e: New = NA) Reference Range Jun 2020 POTASSIUM (test 3.3 mmol/L 3.5-5.1 L code = K) CHLORIDE (test 107 mmol/L 98-107 N Please note: New code = CL) Reference Range Jun 2020 CARBON DIOXIDE 25 mmol/L 20-31 N Please note: New (test code = CO2) Reference Range Jun 2020 GLUCOSE (test code 72 mg/dL 74-106 L Please no te: New = GLU) Reference Range Jun 2020 BLOOD UREA 6 mg/dL 9-23 L Please note: Ne w NITROGEN (test Reference Ran ge Feb code = BUN) 2020 GLOMERULAR >=60 max >60 Units are FILTRATION RATE estimate mL/min mL/min/1. 73m2 The (test code = GFR) estimated glomerular filtration rate is computed usingpatient ra ce, age (>18), sex, and serum creatinin e. If anyof the neede d data elements a re missing the Laboratory kamryn ot compute an estimation of t he glomerular filtration rate . CREATININE (test 0.60 mg/dL 0.55-1.02 N Please note : New code = CREAT) Reference Rang e Jun 2020 CALCIUM (test code 8.1 mg/dL 8.7-10.4 L Please no te: New = CA) Reference Range Jun 2020 [id number] 05:26:00 Test Item Value Reference Range Interpretation Comments MAGNESIUM (test code = 1.6 mg/dL 1.6-2.6 N Pleas e note: New MAG) Reference Range Jun 2020 CBC W/AUTO [id number] 05:11:00 Test Item Value Reference Range Interpretation Comments WHITE BLOOD CELL (test code = 8.7 x10 3/uL 4.8-10.8 N WBC) RED BLOOD CELL (test code = 3.27 x10 6/uL 4.20-5.40 L RBC) HEMOGLOBIN (test code = HGB) 8.6 g/dL 12.0-16.0 L HEMATOCRIT (test code = HCT) 27.9 % 37.0-47.0 L MEAN CELL VOLUME (test code = 85.3 fL 81.0-99.0 N MCV) MEAN CELL HGB (test code = MCH) 26.3 pg 27-31 L MEAN CELL HGB CONCENTRATION 30.8 G/DL 33-36.5 L (test code = MCHC) RED CELL DISTRIBUTION WIDTH 19.7 % 12.9-16.9 H (test code = RDW) PLATELET COUNT (test code = 301 x10 3/uL 150-440 N PLT) MEAN PLATELET VOLUME (test code 9.7 fL 8.9-12.4 N = MPV) NEUTROPHIL % (test code = NT%) 75.5 % 42.2-75.2 H LYMPHOCYTE % (test code = LY%) 12.2 % 20.5-51.1 L MONOCYTE % (test code = MO%) 10.0 % 1.7-9.3 H EOSINOPHIL % (test code = EO%) 1.8 % 0.0-7.0 N BASOPHIL % (test code = BA%) 0.2 % 0-2.5 N NEUTROPHIL # (test code = NT#) 6.52 x10 3/uL 1.80-7.70 N LYMPHOCYTE # (test code = LY#) 1.06 x10 3/uL 1.00-4.80 N MONOCYTE # (test code = MO#) 0.87 x10 3/uL 0.00-0.80 H EOSINOPHIL # (test code = EO#) 0.16 x10 3/uL 0.00-0.45 N BASOPHIL # (test code = BA#) 0.02 x10 3/uL 0.0-0.20 N CBC W/AUTO [id number] 08:04:00 Test Item Value Reference Range Interpretation Comments WHITE BLOOD CELL (test code = 12.6 x10 3/uL 4.8-10.8 H WBC) RED BLOOD CELL (test code = 3.73 x10 6/uL 4.20-5.40 L RBC) HEMOGLOBIN (test code = HGB) 9.7 g/dL 12.0-16.0 L HEMATOCRIT (test code = HCT) 31.2 % 37.0-47.0 L MEAN CELL VOLUME (test code = 83.6 fL 81.0-99.0 N MCV) MEAN CELL HGB (test code = MCH) 26.0 pg 27-31 L MEAN CELL HGB CONCENTRATION 31.1 G/DL 33-36.5 L (test code = MCHC) RED CELL DISTRIBUTION WIDTH 20.4 % 12.9-16.9 H (test code = RDW) PLATELET COUNT (test code = 343 x10 3/uL 150-440 N PLT) MEAN PLATELET VOLUME (test code 9.7 fL 8.9-12.4 N = MPV) NEUTROPHIL % (test code = NT%) 78.6 % 42.2-75.2 H LYMPHOCYTE % (test code = LY%) 11.2 % 20.5-51.1 L MONOCYTE % (test code = MO%) 9.5 % 1.7-9.3 H EOSINOPHIL % (test code = EO%) 0.1 % 0.0-7.0 N BASOPHIL % (test code = BA%) 0.2 % 0-2.5 N NEUTROPHIL # (test code = NT#) 9.90 x10 3/uL 1.80-7.70 H LYMPHOCYTE # (test code = LY#) 1.41 x10 3/uL 1.00-4.80 N MONOCYTE # (test code = MO#) 1.19 x10 3/uL 0.00-0.80 H EOSINOPHIL # (test code = EO#) 0.01 x10 3/uL 0.00-0.45 N BASOPHIL # (test code = BA#) 0.02 x10 3/uL 0.0-0.20 N BASIC METABOLIC [id number] 05:22:00 Test Item Value Reference Range Interpretation Comments SODIUM (test code 142 mmol/L 136-145 N Please not e: New = NA) Reference Range Jun 2020 POTASSIUM (test 3.6 mmol/L 3.5-5.1 N code = K) CHLORIDE (test 107 mmol/L 98-107 N Please note: New code = CL) Reference Range Jun 2020 CARBON DIOXIDE 25 mmol/L 20-31 N Please note: New (test code = CO2) Reference Range Jun 2020 GLUCOSE (test code 99 mg/dL 74-106 N Please no te: New = GLU) Reference Range Jun 2020 BLOOD UREA 8 mg/dL 9-23 L Please note: Ne w NITROGEN (test Reference Ran ge Feb code = BUN) 2020 GLOMERULAR >=60 max >60 Units are FILTRATION RATE estimate mL/min mL/min/1. 73m2 The (test code = GFR) estimated glomerular filtration rate is computed usingpatient ra ce, age (>18), sex, and serum creatinin e. If anyof the neede d data elements a re missing the Laboratory kamryn ot compute an estimation of t he glomerular filtration rate . CREATININE (test 0.70 mg/dL 0.55-1.02 N Please note : New code = CREAT) Reference Rang e Jun 2020 CALCIUM (test code 8.0 mg/dL 8.7-10.4 L Please no te: New = CA) Reference Range Jun 2020 [id number] 05:22:00 Test Item Value Reference Range Interpretation Comments MAGNESIUM (test code = 1.6 mg/dL 1.6-2.6 N Pleas e note: New MAG) Reference Range Jun 2020 CBC W/AUTO [id number] 05:18:00 Test Item Value Reference Range Interpretation Comments WHITE BLOOD CELL (test code = 15.0 x10 3/uL 4.8-10.8 H WBC) RED BLOOD CELL (test code = 3.65 x10 6/uL 4.20-5.40 L RBC) HEMOGLOBIN (test code = HGB) 9.7 g/dL 12.0-16.0 L HEMATOCRIT (test code = HCT) 30.6 % 37.0-47.0 L MEAN CELL VOLUME (test code = 83.8 fL 81.0-99.0 N MCV) MEAN CELL HGB (test code = 26.6 pg 27-31 L MCH) MEAN CELL HGB CONCENTRATION 31.7 G/DL 33-36.5 L (test code = MCHC) RED CELL DISTRIBUTION WIDTH 20.3 % 12.9-16.9 H (test code = RDW) PLATELET COUNT (test code = 347 x10 3/uL 150-440 N PLT) MEAN PLATELET VOLUME (test 10.0 fL 8.9-12.4 N code = MPV) NEUTROPHIL % (test code = NT%) 83.5 % 42.2-75.2 H LYMPHOCYTE % (test code = LY%) 7.8 % 20.5-51.1 L MONOCYTE % (test code = MO%) 8.2 % 1.7-9.3 N EOSINOPHIL % (test code = EO%) 0.0 % 0.0-7.0 N BASOPHIL % (test code = BA%) 0.1 % 0-2.5 N NEUTROPHIL # (test code = NT#) 12.54 x10 3/uL 1.80-7.70 H LYMPHOCYTE # (test code = LY#) 1.17 x10 3/uL 1.00-4.80 N MONOCYTE # (test code = MO#) 1.23 x10 3/uL 0.00-0.80 H EOSINOPHIL # (test code = EO#) 0.00 x10 3/uL 0.00-0.45 N BASOPHIL # (test code = BA#) 0.01 x10 3/uL 0.0-0.20 N CBC W/AUTO [id number] 17:32:00 Test Item Value Reference Range Interpretation Comments WHITE BLOOD CELL (test code = 7.3 x10 3/uL 4.8-10.8 N WBC) RED BLOOD CELL (test code = 4.72 x10 6/uL 4.20-5.40 N RBC) HEMOGLOBIN (test code = HGB) 12.3 g/dL 12.0-16.0 N HEMATOCRIT (test code = HCT) 40.0 % 37.0-47.0 N MEAN CELL VOLUME (test code = 84.7 fL 81.0-99.0 N MCV) MEAN CELL HGB (test code = MCH) 26.1 pg 27-31 L MEAN CELL HGB CONCENTRATION 30.8 G/DL 33-36.5 L (test code = MCHC) RED CELL DISTRIBUTION WIDTH 21.1 % 12.9-16.9 H (test code = RDW) PLATELET COUNT (test code = 364 x10 3/uL 150-440 N PLT) MEAN PLATELET VOLUME (test code 10.8 fL 8.9-12.4 N = MPV) NEUTROPHIL % (test code = NT%) 62.4 % 42.2-75.2 N LYMPHOCYTE % (test code = LY%) 25.5 % 20.5-51.1 N MONOCYTE % (test code = MO%) 7.8 % 1.7-9.3 N EOSINOPHIL % (test code = EO%) 3.8 % 0.0-7.0 N BASOPHIL % (test code = BA%) 0.4 % 0-2.5 N NEUTROPHIL # (test code = NT#) 4.53 x10 3/uL 1.80-7.70 N LYMPHOCYTE # (test code = LY#) 1.86 x10 3/uL 1.00-4.80 N MONOCYTE # (test code = MO#) 0.57 x10 3/uL 0.00-0.80 N EOSINOPHIL # (test code = EO#) 0.28 x10 3/uL 0.00-0.45 N BASOPHIL # (test code = BA#) 0.03 x10 3/uL 0.0-0.20 N ANISOCYTOSIS (test code = 1+ NONE SEEN A ANISO) OVALOCYTES (test code = OVAL) 1+ NONE SEEN A AG [id number] 15:43:00 Test Item Value Reference Range Interpretation Comments AG CARCINOEMBRYONIC (test 2.07 ng/mL 0.0-3.0 [address] ease note: New code = CEA) Reference Range Jun 2020 COMPREHENSIVE METABOLIC [id number] 15:34:00 Test Item Value Reference Range Interpretation Comments SODIUM (test code = 142 mmol/L 136-145 N Please n ote: New NA) Reference Range Jun 2020 POTASSIUM (test 4.2 mmol/L 3.5-5.1 N code = K) CHLORIDE (test code 106 mmol/L 98-107 N Please n ote: New = CL) Reference Range Jun 2020 CARBON DIOXIDE 28 mmol/L 20-31 N Please note: New (test code = CO2) Reference Range Jun 2020 GLUCOSE (test code 80 mg/dL 74-106 N Please no te: New = GLU) Reference Range Jun 2020 BLOOD UREA NITROGEN 17 mg/dL 9-23 N Please n ote: New (test code = BUN) Reference Range Jun 2020 GLOMERULAR >=60 max >60 Units are FILTRATION RATE estimate mL/min mL/min/1. 73m2 The (test code = GFR) estimated glomerular filtration rate is computed usingpatient ra ce, age (>18), sex, and serum creatinin e. If anyof the ne eded data elements a re missing the Laboratory kamryn ot compute an estimation of t he glomerular filtration rate . CREATININE (test 0.70 mg/dL 0.55-1.02 N Please note : New code = CREAT) Reference Rang e Jun 2020 TOTAL PROTEIN (test 6.7 g/dL 5.7-8.2 N Please n ote: New code = PROT) Reference Range Jun 2020 ALBUMIN (test code 4.7 g/dL 3.2-4.8 N Please no te: New = ALB) Reference Range Jun 2020 CALCIUM (test code 9.7 mg/dL 8.7-10.4 N Please no te: New = CA) Reference Range Jun 2020 BILIRUBIN TOTAL 0.5 mg/dL 0.3-1.2 N Please note: New (test code = BILT) Reference Range Jun 2020 SGOT/AST (test code 17 U/L <34 N Please n ote: New = AST) Reference Range Jun 2020 SGPT/ALT (test code 13 U/L 10-49 N Please n ote: New = ALT) Reference Range Jun 2020 ALKALINE 96 U/L 46-116 N Please note: Ne w PHOSPHATASE (test Reference Range Feb code = ALKP) 2020 COVID 19 Asymptomatic IH [id number] 15:33:00 Test Item Value Reference Range Interpretation Comments COVID 19 NEGATIVE NEGATIVE Negative result s, from Asymptomatic IH AG patients with symptom (test code = onset beyondfiv e days, COVNONPUIAG) should be treat ed as presumptive and confirmationwit h a molecular assay , if necessary for patientmanageme nt, may be performed. Nega tive results do not ruleout COVID-19 and sh ould not be used as the sole basis fortreatment or patient management deci sions, includinginfect ion control decisio ns. Negative result s should beconsidered in the context of a pa tient's recent exposure s,history and the presenc e of clinical signs and symptomsconsist ent with COVID-19. PROTHROMBIN [id number] 15:30:00 Test Item Value Reference Range Interpretation Comments PROTHROMBIN TIME 10.9 SECONDS 10.3-12.9 N PATIENT (test code = PTP) INTERNATIONAL 0.96 INR UNIT 0.9-1.11 N The INR is us eful only NORMAL RATIO (test for monit oring code = INR) anticoagulant therapy.It may be unreliable in t he initial phase o f antigoagulation and in unstable patien ts. Indication for Anticoagulation Recommended INR 1. Prevention of v enous thomboembolism 2.0-3.0in high- risk patients; treat ment of venousthrombosi s and pulmonary embol ism aftera course o f heparin; preven tion of systemicembolis m in a variety of cond itions, including atria l fibrillation an d prothetic tissu e heart valves, 2. Pros thetic mechanical hear t valves; 2.5-3.5recurren t systemic emboli sm. THROMBOPLASTIN TIME [id number] 15:30:00 Test Item Value Reference Range Interpretation Comments THROMBOPLASTIN TIME 29.0 SECONDS 23.8-34.8 N INTERPRE TATIVE PARTIAL (test code = DATA: erapeutic PTT) range: Unfractionated heparin:55 - 80 seconds Argatroban:1.5 to 3 times the basel ine PTT OU SPECTRALIS OCT OPTIC NERVE, BOTH [id number] 00:00:0088 [facility] 2020[facility]18 [facility]:0088 [facility] Date/Time Note Provider Source 2021-03-24 17:54:00 [id number] [facility] [address] [place] [address] PATIENT NAME: KAREN MCGILL ADMIT DATE: 03/24/21ACCOUNT NO: [id number] ROOM NO: [facility] AGE: 70 REPORT TYPE: CONSULTATION SEX: F ADMITTING PHYSICIAN:Isaias Wiley MD ATTENDING PHYSICIAN:Isaias Wiley MD CONSULTATION DATE: 03/24/2021 CONSULTING PHYSICIAN: Kyle Hu MD REASON FOR CONSULTATION: Postoperative medica l management. Thank you for this consult. The patient is seen and examined and chartreviewed. HISTORY OF PRESENT ILLNESS: Briefly, the patient is a 70-year-old female whowas found to have malignant neoplasm of the ascending colon and today underwentright hemicolectomy with Dr. Wiley . The patient tolerated the procedure well. We matt rivas asked postoperatively to help participate in her medical care, hence myinvolvement. PAST MEDICAL HISTORY:1. Anemia.2. Hyperlipidemia.3. Colon cancer.4. GERD. PAST SURGICAL HISTORY: Skin dillon t to the right foot. FAMILY HISTORY: Grandmother had uterine cancer. PERSONAL AND SOCIAL HISTORY: Denies tobacco use. Denies alcohol use. ALLERGIES: NO KNOWN DRUG ALLERGIES. MEDICATIONS: See MAR. REVIEW OF SYSTEMS: Denies fever, cough, cold, chest pain, palpitations, PND,orthopnea, polydipsia, polyphagia, heat or cold intolerance , bleedingtendencies, hearing impairment, vision impairment, loss of consciousness, skinrash, depression prior to admission. PHYSICAL EXAMINATION:GENERAL: The patient is awake, alert , oriented x3, not in acute distress.VITAL SIGNS: Blood pressure 112/68, RR 16, pulse 89, and temperature 36.9.HEENT: Normocephalic. Citrus conjunctivae. Anicteric sclerae. Nasal septummidline. Moist buccal mucosa.NECK: Supple. No thyromegaly.CHEST: Symmetric expansion. Clear breath sounds. PATIENT NAME: KAREN MCGILL CARDIOVASCULAR: S1, S2. No gallop noted.ABDOMEN: Soft. Incisions are noted. There are intact. No signs of anybleeding.EXTREMITIES: No clubbing, cyanosis. IMPRESSION AND PLAN:1. Colon cancer, status post right hemicolectomy. Continue postoperative careas per Dr. Wiley.2. Anemia. Monitor hemoglobi n levels. Periodic monitoring. We will resumeiron supplementation upon discharge.3. History of gastroesophageal reflux disease, pantoprazole 40 mg tablet daily.4. Hypercholesterolemia. Monitor for now. Nothing to do.5. Deep breathing exercises to prevent atelectasis.6. Sequential compression device boots for deep venous thrombosis. Thank you once again for allowing me to participate in the care of your patient. We will follow her closely in hospital stay. Dictated By: Kyle Hu MD WT: CON:P.ALEX/LUIS/KATDD: 03/24/2021 17:54:44DT: 03/24/2021 22:08:14Conf#: [id number]/DID#: [id number] Authenticated by Kyle Hu MD On 03/28/2021 04:39:27 PM at 0439 PATIENT NAME: KAREN MCGILL :08:00P.H I [id number] for patient [id number]:40:05 2021-03-24 17:39:00 [id number] [facility] [address] [place] [address] PATIENT NAME: KAREN MCGILL ADMIT DATE: 03/24/21ACCOUNT NO: [id number] ROOM NO: [facility] AGE: 70 REPORT TYPE: OPERATIVE REPORT SEX: F ADMITTING PHYSICIAN:Isaias Wiley MD ATTENDING PHYSICIAN:Isaias Wiley MD OPERATION DATE: 03/24/2021 PREOPERATIVE DIAGNOSIS: Right-sided colon cancer. POSTOPERATIVE DIAGNOSIS: Right-sided colon cancer. PROCEDURES PERFORMED: Robotic-assisted laparoscopic right colectomy. SURGEON: Alcides Arechiga MD TANKAGE GRINDER OPERATOR: Dr. Sergo Patel and Dr. Isaias Wiley. ANESTHESIA : General. DEVICES: None. IMPLANTS: None. COMPLICATIONS: None apparent. INDICATIONS: The patient is a 70-year-old female presenting for surgicalmanagement of right sided colon cancer. The area was tattooed preoperativecolonoscopy. FINDINGS: Entry into the abdomen was achieved vi a Optiview technique in theleft upper quadrant. We placed a total of 4 ports and one was a 12 port at thelow midline area, which was then enlarged for extraction. We then performed a medial to lateral dissection, isolating the SMA andileocolic pedicle. I then identified the duodenum and sweeping this down to theretroperitoneum. We isolated the terminal ileum as well as the ascending colonand proximal transverse colon from the mesentery, taking it with a vesselsealing device. We stapled across the terminal ileum and stapled across thetransverse colon with one firing of the 60 mm stapler blue load. We came acrossthe pedicle before this with a white load of the stapler. We then made acolotomy and enterotomy created a jsir-ls-qhkj isoperistaltic anastomosis. Weclose d the common channel with a barbed suture in a running fashion followed byimbricating layer. Before closure, we did notice that there was a slight oozefrom the staple line on the posterior aspect. Then, we put a couple of stitcheson the spur hemostasis purposes. We then enlarged the low midline incision and placed a wound protector. Uponextraction, there was a slight rent in the colon noted; however, the specimen PATIENT NAME: KAREN MCGILL was removed in its entirety. The port sites were then closed and the incisions were closed in multiplelayers, particularly the low transverse. At this point, the incisions wereclosed with 4-0 Monocryl and Dermabond. PROCEDURE IN DETAIL: The patient was seen and evaluated in preoperativeholding. Proper consent s were obtained. All questions were answered priortaken back to the operating theater. The patient was taken back to theoperating theater, placed in supine position. The patient underwent generalanesthesia via anesthesia. Proper time-ou t occurred with everyone in agreement of procedure . The patient was placed in a modified lithotomy position. The patient's abdomenwas prepped and draped in normal sterile fashion. The patient received IV antibiotics and bilateral lower extremity SCDs in placeprior to induction of anesthesia. After proper time-out occurred with everyonein agreement of procedure, entry into th e abdomen was achieved via Optiviewtechnique in th e left upper quadrant. Upon entry into the abdomen , uniforminsufflation of the abdomen was achieved. We did a surveillance of the abdomenand noted no other mass or lesion except the tattooed area an d some firmness tothe colon. We placed a total of 3 ports, one in the right lower quadrant, onein th e midline in the lower abdomen, and one in the lef t lower quadrant as well,and one in the midline in the lower abdomen was a 12 port. We then upsized thisport at the end of the case by a muscle splitting technique and a subfascialdissection and this was replaced for extraction. We then performed a medial to lateral dissection, elevating the cecum andfinding the ileocolic pedicle. The mesenteric scoring was performed an d then weentered into the retroperitoneal plane. W e actually were just above theretroperitoneal plane. We then swept down the retroperitoneum an d thenidentified the duodenum and swept this down as well. This was done across thecourse of the retroperitoneum. We carried this up to near the hepatic flexureas well. We then isolated the ileocolic pedicle and we took the pedicle with awhite load on the stapler. At this point, the mesentery was taken to the colon and small bowel , and weallowed time for demarcation. We then took down the lateral attachments of the colon and th e hepatic flexure.We did take some omentum that wa s adherent over the proximal transverse colon aswell. We used the vessel sealing device in order to achieve hemostasis. Once this was achieved and we mobilized everything, we stapled across the smallbowel and the colon with one firing of the 60 mm stapler for each. We then laidthis in an isoperistaltic fashion of a bpyo-ak-dzgg anastomosis. We made anenterotomy, roughly 2 cm from the staple line of the small bowel and a colotomyin the roughly 7 cm from the staple line. We then used a 60-mm stapler blueload for the common channel and stapled this and created an isoperistalticanastomosis. We inspected the anastomosis and that there was a slight ooze fromthe posterior aspect of the staple line, placed 3-0 Vicryl suture around this. PATIENT NAME: KAREN MCGILL At this point, the area was checked; at this point, the common channel wasclosed with a running barbed suture of 3-0 size, followed by a second layerimbricating sutures. Good reapproximation and closure of thi s was achieved.Good hemostasis was achieved. We then placed the omentum over the area. We graspe d the colon. Then, weundocked the robot. Next, we enlarged the port site in the low transverseincision area and did a subfascial dissection and opened in the midline betweenthe muscle. We then placed a wound protector. Upon extraction, there was noted to be somewhat of a bulky firmness to thetumor. There was a slight rent in this. However, this was captured with thewound protector in place. We then removed the specimen and sent this off topathology. We close d the peritoneum first in a running fashion followed by the fascialdefect in #1 PDS suture from either end of the incision and then 3-0 Vicryl and4-0 Monocryl for the incisions at the skin. We also reinsufflated the abdomenand inspected the area laparoscopically and closure of the fascia and goodhemostasis appeared to be achieved. We desufflated the abdomen, closed the port sites with 4-0 Monocryl andDermabond. We removed the ports under direct visualization. Al l counts were correct at the end of the case. The patient tolerated theprocedure well. Dr. Inez Patel were present for the critical portions of theprocedure and required for assistance for the procedure. Dictated By: Alcides Arechiga MD WT: OP:P.ALEX/ARTHUR/NTSDD: 03/24/2021 17:39:36DT: 03/24/2021 22:57:05Conf#: [id number]/DID#: [id number] Authenticated and Edited by Alcides Arechiga MD On 03/26/21 2:48:54 PM at 0251 PATIENT NAME: LIO MCGILL [id number]:57:00P.[id number] i lable for patient [id number]:52:16 2021-03-23 14:46:00 [id number] [address]LAGXRNR NAME: KAREN MCGILL ADMIT DATE: ACCOUNT NO: [id number] ROOM NO: AGE: 70 REPORT TYPE: eELECTROCARDIOGRAM SEX: F ADMITTING PHYSICIAN: Isaias Wiley MD ATTENDING PHYSICIAN: Isaias Wiley MD Order:[id number] Reason : SDS Test Date/Time Stamp:TueMar 23 2021 14:46:06Blood Pressure : / mmHGVent. Rate : 089 BPM Atrial Rate : 089 BPM P-R Int : 136 ms QRS Dur : 074 ms QT Int : 360 ms P-R-T Axes : 06 6 074 076 degrees QTc Int : 438 ms Normal sinus rhythmNormal ECGNo previous ECGs availableConfirmed by MAURA JOHN, MILAGRO ([id number]) o n 03/24/2021 4:25:23 PM Referred By: Isaias Wiley Confirmed by:MILAGRO ESCOBAR MD at 1625 PATIENT NAME: KAREN MCGILL .[id number] AVAvailable for patient [id number]
[2023-04-09 12:43] LABS: Hematocrit 42.4 % (36.0-45.0); Lymphocytes % 15.4 % (15.3-44.8); MCV 89.9 fL (80-100); Platelets 336 thou/uL (152-406); RBC Red Blood Cell Count 4.71 M/uL (3.86-4.86)
[2023-04-09 12:57] LABS: Albumin 3.7 g/dL (3.4-5.0); Bilirubin Total 0.9 mg/dL (0.2-1.0); Potassium 3.7 mEq/L (3.5-5.1); Protein, Total 8.2 g/dL (6.4-8.2)
[2023-04-09] MEDS ORDERED: MORPHINE 4 MG/ML SYR ONE (13:06)
[2023-04-09] MEDS ORDERED: ONDANSETRON 4 MG/2 ML VIAL ONE ×2 (13:07→15:12)
[2023-04-09] MEDS ORDERED: FAMOTIDINE 20 MG/2 ML VIAL IV ONE (13:07)
[2023-04-09] MEDS ORDERED: NA CHLORIDE 0.9% 1,000 ML ONE (13:07)
[2023-04-09 13:27] LABS: Specific Gravity 1.019 (1.005-1.030); Urine Bacteria 20-50 /HPF (<20); Urine Bilirubin NEGATIVE (Negative); Urine Blood Negative (Negative); Urine Clarity Extremely Turbid (Clear); Urine Color Light-Yellow (Yellow); Urine Glucose NEGATIVE (Negative); Urine Mucus Slight /HPF (None Seen); Urine Protein TRACE (Negative); Urine RBC <5 /HPF (None Seen); Urine Urobilinogen Normal (Normal)
--- NOTE | 2023-04-09 13:29 | RAD REPORT ---
EXAM DESCRIPTION: CTAbdomen Pelvis W Contrast - 04/09/2023 1:20 pm CLINICAL HISTORY: Abdominal pain. ABD PAIN COMPARISON: Abdomen Pelvis W Contrast dated 02/25/2021; Abdomen Pelvis W Contrast dated 0 TECHNIQUE: Biphasic CT imaging of the abdomen and pelvis was performed with 100 ml non-ionic IV cont rast. All CT scans are performed using dose optimization technique as appropriate and may include automated exposure control or mA/KV adjustment according to patient size. FINDINGS: The lung bases are clear.Small hiatal hernia. The liver contains a small 8 mm cyst in the left lobe. Spleen, pancreas, adrenal glands are within no rmal limits. Small caliceal stones are present left kidney. Moderate right hydronephrosis is present caused by 10 mm stone at the right UPJ. No bowel obstruction, free air, free fluid or abscess. Previous right hemicolectomy noted. Mild sigm oid diverticulosis coli without diverticulitis. No evidence of significant lymphadenopathy. No suspicious bony findings. IMPRESSION: 10 mm stone right UPJ resulting in moderate right hydronephrosis. Small caliceal stones left kidney without hydronephrosis.
[2023-04-09] MEDS ORDERED: CEFTRIAXONE 1000 MG/VIAL ONE (14:22)
[2023-04-09] MEDS ORDERED: HYDROMORPHONE HCL 1 MG/ML INJ ONE (14:22)
[2023-04-09] MEDS ORDERED: NA CHLORIDE 0.9% 50 ML ONE (14:22)
[2023-04-09] MEDS ORDERED: TAMSULOSIN 0.4 MG SR CAP ONE (14:22)
--- NOTE | 2023-04-09 18:42 | ER ---
Nurse's Notes [facility] Name: Yury Rodriguez Age: 72 yrs Sex: Female : 1950 Arrival Date: 04/09/2023 Time: 12:03 Bed 7 Private MD: Diagnosis: Hydronephrosis with renal and ureteral calculous obstruction;UTI/ Urinary tract infection, site not specified Presentation: 04/09 12:19 Chief complaint: Patient states: R flank pain for 2 days. N/V began today. Coronavirus ll1 screen: Vaccine status: Patient reports receiving the 2nd dose of the covid vaccine. Client denies travel out of the [place] in the last 14 days. At this time, the client does not indicate any symptoms associated with coronavirus-19. Ebola Screen: Patient denies travel to an Ebola-affected area in the 21 days before illness onset. Initial Sepsis Screen: Does the patient meet any 2 criteria? No. Patient's initial sepsis screen is negative. Does the patient have a suspected source of infection? Yes: Acute abdominal pain. Risk Assessment: Do you want to hurt yourself or someone else? Patient reports no desire to harm self or others. Onset of symptoms was April 08, 2023. 12:19 Method Of Arrival: Wheelchair ll1 12:19 Acuity: KAREN 3 ll1 Triage Assessment: 12:21 General: Appears uncomfortable, ill, Behavior is calm, cooperative, appropriate for ll1 age. Pain: Complains of pain in R flank Pain currently is 10 out of 10 on a pain scale. Neuro: No deficits noted. GI: Reports lower abdominal pain, nausea, vomiting. : Reports pain in right flank(s). Historical: - Allergies: 12:19 Sulfa (Sulfonamide Antibiotics); ll1 - PMHx: 12:19 High Cholesterol; Kidney stones; ll1 - PSHx: 12:19 colon CA with SX (Kidney stones); ll1 - Immunization history:: Adult Immunizations up to date. - Social history:: Smoking status: Patient denies any tobacco usage or history of. Screenin:43 [facility] ED Fall Risk Assessment (Adult) History of falling in the last 3 months, ph including since admission No falls in past 3 months (0 pts) Confusion or Disorientation No (0 pts) Intoxicated or Sedated No (0 pts) Impaired Gait No (0 pts) Mobility Assist Device Used No (0 pt) Altered Elimination No (0 pt) Score/Fall Risk Level 0 - 2 = Low Risk Oriented to surroundings, Maintained a safe environment, Provided non-skid footwear, Hourly rounding (assess needs \T\ fall precautionary measures) done. Abuse screen: Denies threats or abuse. Denies injuries from another. Nutritional screening: No deficits noted. Tuberculosis screening: No symptoms or risk factors identified. Assessment: 13:15 General: Appears in no apparent distress. uncomfortable, Behavior is calm, cooperative, ph appropriate for age. Pain: Complains of pain in right lower quadrant and suprapubic area. Neuro: Level of Consciousness is awake, alert, obeys commands, Oriented to person, place, time, situation. Cardiovascular: Capillary refill < 3 seconds in bilateral fingers Patient's skin is warm and dry. Respiratory: Airway is patent Respiratory effort is even, unlabored. GI: Abdomen is non-distended, Reports lower abdominal pain, nausea, vomiting. Derm: Skin is pink, warm \T\ dry. Musculoskeletal: Circulation, motion, and sensation intact. Range of motion: intact in all extremities. 20:00 General: Appears in no apparent distress. comfortable, Behavior is calm, cooperative, km8 appropriate for age. 20:00 Pain: Denies pain. Neuro: Level of Consciousness is awake, alert, obeys commands, km8 Oriented to person, place, time, situation. Cardiovascular: Capillary refill < 3 seconds Patient's skin is warm and dry. Respiratory: Airway is patent Respiratory effort is even, unlabored, Respiratory pattern is regular, symmetrical. Derm: Skin is intact, is healthy with good turgor, Skin is dry, Skin is pink, warm \T\ dry. normal, Skin temperature is warm. Musculoskeletal: Range of motion: intact in all extremities. 20:18 General: report called to MARIAA Gee at [facility]. km8 Vital Signs: 12:19 BP 146 / 93; Pulse 93; Resp 18; Temp 97.2; Pulse Ox 96% on R/A; Height 5 ft. 5 in. ; ll1 Pain 10/10; 13:46 BP 136 / 87; Pulse 88; Resp 18; Pulse Ox 99% on R/A; ph 15:05 BP 139 / 77; Pulse 86; Resp 18; Pulse Ox 98% on 2 lpm NC; ph 16:00 BP 162 / 95; Pulse 100; Resp 18; Pulse Ox 97% on 2 lpm NC; ph 17:37 BP 149 / 65; Pulse 105; Resp 18; Temp 98.7; Pulse Ox 94% on R/A; ph 19:00 BP 115 / 63; Pulse 93; Resp 16; Pulse Ox 97% on R/A; km8 19:45 BP 111 / 58; Pulse 94; Resp 16; Pulse Ox 94% on R/A; km8 12:19 Pain Scale: Adult ll1 ED Course: 12:06 Patient arrived in ED. mg5 12:09 Riat Lobo FNP-C is PHCP. snw 12:09 Janette Kelly MD is Attending Physician. snw 12:19 Arm band placed on Patient placed in an exam room, on a stretcher. ll1 12:20 Stephanie Jones, RN is Primary Nurse. ph 12:20 Triage completed. ll1 12:31 CBC with Diff Sent. bc6 12:31 CMP Sent. bc6 12:31 Lipase Sent. bc6 12:31 Inserted saline lock: 22 gauge in right antecubital area, using aseptic technique. bc6 Blood collected. 13:22 CT Abd/Pelvis - IV Contrast Only In Process Unspecified. EDMS 13:45 Patient has correct armband on for positive identification. Placed in gown. Bed in low ph position. Call light in reach. Side rails up X2. Pulse ox on. NIBP on. 17:38 No provider procedures requiring assistance completed. Patient transferred, IV remains ph in place. 20:37 Provided Education on: transfer process. km8 Administered Medications: 13:15 Drug: Famotidine IVP 20 mg IVP once; dilute with 10 mL 0.9% NaCl; give over 2 minutes ph Route: IVP; Site: right antecubital; 20:28 Follow up: Response: No adverse reaction km8 13:15 Drug: morphine IVP or IV 4 mg IVP once over 4 mins Route: IVP; Infused Over: 4 mins; ph Site: right antecubital; 20:28 Follow up: Response: No adverse reaction km8 13:15 Drug: NS 0.9% IV 1000 ml IV at 75 ml/hr continuous Route: IV; Rate: 75 ml/hr; Site: ph right antecubital; 20:37 Follow up: IV Status: Infusion continued upon transfer km8 13:15 Drug: Ondansetron IVP 4 mg IVP once; over 2 minutes Route: IVP; Site: right antecubital;ph 20:28 Follow up: Response: No adverse reaction km8 14:24 Drug: Flomax PO 0.4 mg PO once Route: PO; ph 20:28 Follow up: Response: No adverse reaction km8 14:24 Drug: HYDROmorphone IVP 1 mg IVP once Route: IVP; Site: right antecubital; ph 20:27 Follow up: Response: No adverse reaction; Pain is decreased km8 14:24 Drug: Rocephin IV 1 grams IV at calculated rate once; Given slow IV push per pharmacy ph instructions Route: IV; Rate: calculated rate; Site: right antecubital; 19:00 Follow up: IV Status: Completed infusion km8 15:04 Drug: Ondansetron IVP 4 mg IVP once; over 2 minutes Route: IVP; Site: right antecubital;ph 20:27 Follow up: Response: No adverse reaction km8 Medication: 13:45 VIS not applicable for this client. ph Outcome: 18:42 ER care complete, transfer ordered by MD. de los santos 20:37 Transferred by ground EMS to [facility], Transfer form completed. km8 20:37 Condition: stable 20:37 Discharge instructions given to patient, significant other, Instructed on the need for transfer, Demonstrated understanding of instructions, 20:38 Patient left the ED. km8 Signatures: Dispatcher [employer] EDMS Rita Lobo, EDIE-Zander SENIOR SOFTWARE ENGINEER-CsnStephanie William, RN RN ph Iram Avina RN RN ll1 Veronica Dean [facility] Kimmie Breaux 5 Deedee Holman, RN RN km8 Corrections: (The following items were deleted from the chart) 12:50 12:31 SARS-COV-2 RT PCR+MOL.LAB.BRZ drawn and sent. [facility] EDMS 12:51 12:31 Influenza Screen (A \T\ B)+BA.LAB.BRZ drawn and sent. [facility] EDMS 20:38 20:37 Transferred by ground EMS Transfer form completed. km8 km8
--- NOTE | 2023-04-09 18:42 | EDPHYS ---
Physician Documentation [facility] Name: Yury Rodriguez Age: 72 yrs Sex: Female : 1950 Arrival Date: 04/09/2023 Time: 12:03 Bed 7 Private MD: ED Physician Janette Kelly HPI: 04/09 13:07 This 72 yrs old Female presents to ER via Wheelchair with complaints of Low Side Pain, snw Nausea/Vomiting. 13:07 Onset: The symptoms/episode began/occurred suddenly, last night. Associated signs and snw symptoms: Pertinent positives: abdominal pain, vomiting. Modifying factors: The patient symptoms are alleviated by nothing, the patient symptoms are aggravated by nothing. The patient has not experienced similar symptoms in the past. It is unknown whether or not the patient has recently seen a physician. sees Dr. Davis. Historical: - Allergies: 12:19 Sulfa (Sulfonamide Antibiotics); ll1 - PMHx: 12:19 High Cholesterol; Kidney stones; ll1 - PSHx: 12:19 colon CA with SX (Kidney stones); ll1 - Immunization history:: Adult Immunizations up to date. - Social history:: Smoking status: Patient denies any tobacco usage or history of. ROS: 13:06 Constitutional: Negative for fever, chills, and weight loss, Eyes: Negative for injury, snw pain, redness, and discharge, ENT: Negative for injury, pain, and discharge, Neck: Negative for injury, pain, and swelling, Cardiovascular: Negative for chest pain, palpitations, and edema, Respiratory: Negative for shortness of breath, cough, wheezing, and pleuritic chest pain, 13:06 Back: Negative for injury and pain, : Negative for injury, bleeding, discharge, and swelling, MS/Extremity: Negative for injury and deformity, Skin: Negative for injury, rash, and discoloration, Neuro: Negative for headache, weakness, numbness, tingling, and seizure, Psych: Negative for depression, anxiety, suicide ideation, homicidal ideation, and hallucinations, Allergy/Immunology: Negative for hives, rash, and allergies, Endocrine: Negative for neck swelling, polydipsia, polyuria, polyphagia, and marked weight changes, 13:06 Abdomen/GI: Positive for abdominal pain, nausea and vomiting, of the right lower quadrant, hx of Colon ca resection , Exam: 13:06 Constitutional: This is a well developed, well nourished patient who is awake, alert, snw and in no acute distress. Head/Face: Normocephalic, atraumatic. Eyes: Pupils equal round and reactive to light, extra-ocular motions intact. Lids and lashes normal. Conjunctiva and sclera are non-icteric and not injected. Cornea within normal limits. Periorbital areas with no swelling, redness, or edema. ENT: Nares patent. No nasal discharge, no septal abnormalities noted. Tympanic membranes are normal and external auditory canals are clear. Oropharynx with no redness, swelling, or masses, exudates, or evidence of obstruction, uvula midline. Mucous membranes moist. Neck: Trachea midline, no thyromegaly or masses palpated, and no cervical lymphadenopathy. Supple, full range of motion without nuchal rigidity, or vertebral point tenderness. No Meningismus. Chest/axilla: Normal chest wall appearance and motion. Nontender with no deformity. No lesions are appreciated. Cardiovascular: Regular rate and rhythm with a normal S1 and S2. No gallops, murmurs, or rubs. Normal PMI, no JVD. No pulse deficits. Respiratory: Lungs have equal breath sounds bilaterally, clear to auscultation and percussion. No rales, rhonchi or wheezes noted. No increased work of breathing, no retractions or nasal flaring. Back: No spinal tenderness. No costovertebral tenderness. Full range of motion. Skin: Warm, dry with normal turgor. Normal color with no rashes, no lesions, and no evidence of cellulitis. MS/ Extremity: Pulses equal, no cyanosis. Neurovascular intact. Full, normal range of motion. Neuro: Awake and alert, GCS 15, oriented to person, place, time, and situation. Cranial nerves II-XII grossly intact. Motor strength 5/5 in all extremities. Sensory grossly intact. Cerebellar exam normal. Normal gait. Psych: Awake, alert, with orientation to person, place and time. Behavior, mood, and affect are within normal limits. 13:06 Abdomen/GI: Inspection: scar(s), are noted in the suprapubic area and right lower quadrant, Bowel sounds: diminished, Palpation: moderate abdominal tenderness, severe abdominal tenderness, in the right lower quadrant, Vital Signs: 12:19 BP 146 / 93; Pulse 93; Resp 18; Temp 97.2; Pulse Ox 96% on R/A; Height 5 ft. 5 in. ; ll1 Pain 10/10; 13:46 BP 136 / 87; Pulse 88; Resp 18; Pulse Ox 99% on R/A; ph 15:05 BP 139 / 77; Pulse 86; Resp 18; Pulse Ox 98% on 2 lpm NC; ph 16:00 BP 162 / 95; Pulse 100; Resp 18; Pulse Ox 97% on 2 lpm NC; ph 17:37 BP 149 / 65; Pulse 105; Resp 18; Temp 98.7; Pulse Ox 94% on R/A; ph 19:00 BP 115 / 63; Pulse 93; Resp 16; Pulse Ox 97% on R/A; km8 19:45 BP 111 / 58; Pulse 94; Resp 16; Pulse Ox 94% on R/A; km8 12:19 Pain Scale: Adult ll1 MDM: 12:18 Patient medically screened. snw 16:53 Differential diagnosis: UTI, kidney stone, colon ca recurrence. Data reviewed: vital snw signs, nurses notes, lab test result(s), radiologic studies. Management of patient was discussed with the following: Hospitalist Dr. Ramsey, [facility]. Awaiting call from Urology. Will call with approval if Urology available and capacity.. Counseling: I had a detailed discussion with the patient and/or guardian regarding the historical points, exam findings, and any diagnostic results supporting the discharge/admit diagnosis. Response to treatment: the patient's symptoms have markedly improved after treatment. Special discussion: need Urology for admission. Not available here at [facility]. . 17:51 ED course: still attempting transfer, attempting Urology acceptance. snw 17:57 ED course: Dr. Ramsey called and has secured Dr. Madelaine Ward, Urology, for consult. snw Attempt transfer to [facility] now. [phone]. 18:37 ED course: spoke with Dr. Morel, Hospitalist and also Dr. Ward, Urologist regarding snw patient. They kindly accept pt in transfer to [facility].. 19:42 ED course: Pt states pain finally improved. Discussed plan of care/transfer. Pt voices snw understanding. 04/09 12:23 Order name: CBC with Diff; Complete Time: 13:00 snw 04/09 12:23 Order name: CMP; Complete Time: 13:00 snw 04/09 12:23 Order name: Lipase; Complete Time: 13:00 snw 04/09 12:23 Order name: Urinalysis w/ reflexes; Complete Time: 13:37 snw 04/09 13:32 Order name: Urine Culture EDMS 04/09 12:23 Order name: CT Abd/Pelvis - IV Contrast Only; Complete Time: 13:37 snw 04/09 12:23 Order name: IV Saline Lock; Complete Time: 12:32 snw 04/09 12:23 Order name: Labs collected and sent; Complete Time: 12:32 snw Administered Medications: 13:15 Drug: Famotidine IVP 20 mg IVP once; dilute with 10 mL 0.9% NaCl; give over 2 minutes ph Route: IVP; Site: right antecubital; 20:28 Follow up: Response: No adverse reaction [facility] 13:15 Drug: morphine IVP or IV 4 mg IVP once over 4 mins Route: IVP; Infused Over: 4 mins; ph Site: right antecubital; 20:28 Follow up: Response: No adverse reaction 8 13:15 Drug: NS 0.9% IV 1000 ml IV at 75 ml/hr continuous Route: IV; Rate: 75 ml/hr; Site: ph right antecubital; 20:37 Follow up: IV Status: Infusion continued upon transfer [facility] 13:15 Drug: Ondansetron IVP 4 mg IVP once; over 2 minutes Route: IVP; Site: right antecubital;ph 20:28 Follow up: Response: No adverse reaction 8 14:24 Drug: Flomax PO 0.4 mg PO once Route: PO; ph 20:28 Follow up: Response: No adverse reaction 8 14:24 Drug: HYDROmorphone IVP 1 mg IVP once Route: IVP; Site: right antecubital; ph 20:27 Follow up: Response: No adverse reaction; Pain is decreased [facility] 14:24 Drug: Rocephin IV 1 grams IV at calculated rate once; Given slow IV push per pharmacy ph instructions Route: IV; Rate: calculated rate; Site: right antecubital; 19:00 Follow up: IV Status: Completed infusion 15:04 Drug: Ondansetron IVP 4 mg IVP once; over 2 minutes Route: IVP; Site: right antecubital;ph 20:27 Follow up: Response: No adverse reaction km8 Disposition Summary: 04/09/23 18:42 Transfer Ordered Notes: Transfer Location: [facility] snw Reason: Specialty snw Condition: Stable snw Problem: new snw Symptoms: are unchanged snw Accepting Physician: Dr. Gardner(04/09/23 20:38) km8 Diagnosis - Hydronephrosis with renal and ureteral calculous obstruction snw - UTI/ Urinary tract infection, site not specified snw Forms: - Medication Reconciliation Form snw - SBAR form snw Signatures: Dispatcher [employer] EDMS Rita Lobo, EDIE-C FLOUR BROKER-Csnw Stephanie Jones RN RN Iram Avina RN RN [facility] Deedee Holman RN RN km8 Corrections: (The following items were deleted from the chart) 12:50 12:24 SARS-COV-2 RT PCR+MOL.LAB.BRZ ordered. EDMS EDMS 12:51 12:24 Influenza Screen (A \T\ B)+BA.LAB.BRZ ordered. EDMS EDMS 20:38 18:42 Dr. Gardner [facility] km8
[2023-04-09 21:04] VITALS: TEMP 98.7
[2023-04-09 21:07] VITALS: BP 111/58; O2SAT 94
== END 2023-04-09 20:38 | disposition short-term general hospital (02) ==
LOC: ER 12:03
DX: N13.2 Hydronephrosis with renal and ureteral calculous obstruction (principal); N39.0 Urinary tract infection, site not specified; Z88.2 Allergy status to sulfonamides; Z85.038 Personal history of other malignant neoplasm of large intestine; Z87.442 Personal history of urinary calculi
CPT/HCPCS: 36415; 74177; 80053; 81001; 83690; 85025; 87077; 87086; 87088; 87186; 96361; 96365; 96366; 96375; 99285; J0696; J1170; J2405; J7030; Q9967

== ENCOUNTER → 2024-01-18 | Day surgery (SDC) | payer OTHER, BC ==
--- NOTE | 2024-01-18 15:47 | RAD REPORT ---
EXAM DESCRIPTION: US - BX ABD/RETRO PERC/US GUIDE - 01/18/2024 10:32 am CLINICAL HISTORY: R19.00 COMPARISON: No comparisons FINDINGS: Preoperative diagnosis: 3.5 cm mass anterior abdominal wall. Post operative diagnosis: Same. Conscious Sedation: None Fluoroscopy time: None Contrast used: None Estimated blood loss: Minimal Specimens:2 x 18 gauge core biopsy specimen. The anterior abdominal wall was prepped and draped in the usual sterile fashion. 1% lidocaine was inf iltrated into the subcutaneous tissues for local anesthesia. Real time ultrasound scanning of the ant erior abdominal wall demonstrated irregular 3.5 cm soft tissue mass. Under ultrasound guidance, using a 18-gauge, 6 cm long, 2 cm throw core biopsy gun, 2 specimens were obtained of this lesion and sent to pathology for evaluation. There were no complications. IMPRESSION: Technically successful ultrasound-guided core biopsy anterior abdominal wall mass.
== END ==
LOC: FNA 09:45
PROVIDERS: ATTEND Family Medicine
DX: C78.6 Secondary malignant neoplasm of retroperitoneum and peritoneum (principal)
CPT/HCPCS: 49180; 76942; 88305

== ENCOUNTER 2024-05-29 15:34 | Emergency (ER) | payer OTHER, BC ==
--- OUTSIDE RECORDS SUMMARY | 2024-05-29 15:38 | XMS REPORT | Clinical Summary ---
Author Name Unknown Organization [facility] Address [address] [place] [address] Care Team Providers Care Stretch Press Operator Name Role Phone Chester Davis MD Unavailable August RN Unavailable [phone] Chester Davis MD Unavailable Tamara Joshi Primary Care Provider [phone] Johnny Carson MD PhD Primary Care Provider [phone] Tamara Joshi Unavailable Flor Brody RN, Nathanlee Unavailable [phone] Allergies Active Allergy Reactions Criticality Noted Date Comments Sulfa (Sulfonamide Antibiotics) Rash,Swelling,Other (See Comments) Low 05/16/1964 Other Reaction(s): Itching/Hives/Rash Medications * This document contains information received from the source organization and may not represent a complete record from that organization. fluticasone propionate (FLONASE) 50 mcg/spray nasal spray as needed. 2023 Active multivitamin (THERAGRAN) tablet Take 1 tablet by mouth daily. Active UNABLE TO FIND Apply to eye as needed. CARBOXYMETHYLCELLULOSE SODIUM (REFRESH OPHTHALMIC) Active UNABLE TO FIND every other day. Med Name: VITAMIN K2+D3 Activ e lidocaine-pr ilocaine (EMLA) 2.5-2.5% creamIndicat ions:Postope rative pain,Metasta tic malignant neoplasm to soft tissues of abdomen,Michael ocarcinoma, NOS of ascending colon Apply 1 application topically to affected area(s) as needed for mild pain (apply 45 minutes topically before port access). 30 g 024 12:20 PM [employer] 2023 Active ondansetron (Zofran) 8 mg tabletIndica tions:Metast atic malignant neoplasm to soft tissues of abdomen,Michael ocarcinoma, NOS of ascending colon Take 1 tablet (8 mg) by mouth every 8 (eight) hours as needed for nausea or vomiting. (First Choice) 30 tablet 5 2023 Active prochlorpera zine (Compazine) 5 mg tabletIndica tions:Metast atic malignant neoplasm to soft tissues of abdomen,Michael ocarcinoma, NOS of ascending colon Take 1 tablet (5 mg) by mouth every 6 (six) hours as needed for nausea or vomiting. (Second Choice) 30 tablet 5 2023 Active multivitamin tab tablet Take by mouth. 04/04 Discontinued traMADol (Ultram) 50 mg tabletIndica tions:Postop erative pain Take 1 tablet (50 mg) by mouth every 8 (eight) hours as needed for moderate pain. 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 (Primary Dx); Adenocarcinoma, NOS of ascending colon 05/21/2024 10:20 AM [employer] Follow-Up [facility] Medical Oncology [address] [place] [address] Mila Baxter, TUMBLING MACHINE OPERATOR 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 (Primary Dx); Adenocarcinoma, NOS of ascending colon 05/21/2024 Orders Only [facility] [address] [place] [address], 7th [place] [address] Johnny Carson MD PhD 05/21/2024 Travel 04/27/2024 [facility] - Medical Oncology [address] [place] [address], 7th [place] [address] Dana Ray V, RN Nurse Navigation (Post 1st treatment cycle 1) 04/25/2024 9:15 AM [employer] Infusion [facility] - Infusion [address] [place] [address] Johnny Carson MD PhD Adenocarcinoma, NOS of ascending colon; 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 04/25/2024 Travel 04/23/2024 8:30 AM [employer] Infusion [facility] - Infusion [address] [place] [address] Johnny Carson MD PhD Britney Maldonado, RN 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 (Primary Dx); Adenocarcinoma, NOS of ascending colon 04/23/2024 Orders Only [facility] Medical Oncology [address] [place] [address] Mila Baxter APRN 04/23/2024 Orders Only [facility] - Medical Oncology [address] [place] [address] Mila Baxter, TUMBLING MACHINE OPERATOR 04/23/2024 Travel 04/20/2024 11:30 AM [employer] Follow-Up [facility] Medical Oncology [address] [place] [address] Johnny Carson MD PhD Adenocarcinoma, NOS of ascending colon (Primary Dx); 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 04/20/2024 Travel 04/16/2024 9:55 AM [employer] Ancillary Procedure [facility] [address] [place] [address] 04/16/2024 8:55 AM [employer] Ancillary Procedure Pre-Op/Surgery Check-In [address] [place] [address] Letty Rajput MD 04/16/2024 8:46 AM [employer] Anesthesia Event Pre-Op/Surgery Check-In [address] [place] [address] Lisandro Eduardo MD 04/16/2024 8:25 AM [employer] Ancillary Procedure [facility] [address] [place] [address] 04/16/2024 8:20 AM [employer] - 04/16/2024 9:35 AM [employer] Surgery Pre-Op/Surgery Check-In [address] [place] [address] Letty Rajput MD PORT-A-CATH PLACEMENT 04/16/2024 7:25 AM [employer] Ancillary Procedure MAIN OR [address] [place] [address] Anjana Yip, TUMBLING MACHINE OPERATOR 04/16/2024 6:54 AM [employer] - 04/16/2024 11:07 AM [employer] Hospital Encounter Pre-Op/Surgery Check-In [address] [place] [address] [place] [address] Letty Rajput MD Adenocarcinoma, NOS of ascending colon (Primary Dx) Discharge Disposition: Home 04/16/2024 Travel 04/11/2024 4:30 PM [employer] POEM Appointments [facility] [address] [place] [address], [address] [place], [place] [address] [address] Anjana Yip APRN Pre-surgery evaluation 04/10/2024 11:59 PM [employer] Anesthesia Event [facility] [address] [place] [address], [address] [place], [place] [address] [address] Graciela Rosario, MARIAA 04/10/2024 Telephone [facility] [address] [place] [address], [address] [place], [place] [address] [address] Dana Ray V, RN Nurse Navigation (Follow up review appointments) 04/09/2024 9:15 AM [employer] - 04/09/2024 11:59 PM [employer] Hospital Encounter [facility] [address] [place] [address], 8th [facility] [place] [address] Mila Baxter, Radha Purcell, RN Nazanin Hardy, COOPER Adenocarcinoma, NOS of ascending colon (Primary Dx); Adenocarcinoma, NOS of colon, NOS; Postoperative pain; 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 Discharge Disposition: Home 04/09/2024 Travel 04/06/2024 Telephone [facility] [address] [place] [address], [address] [place] [address] Dana Ray V, RN Nurse Navigation (Review Appointment) 04/05/2024 Prep for Surgery [facility] [address] [place] [address], 8th [place] [address] Anjana Yip APRN Adenocarcinoma, NOS of ascending colon (Primary Dx); Pre-surgery evaluation; Pre-surgery testing <Preprocedural examination; Cardiovascular> 04/04/2024 11:30 AM [employer] Follow-Up [facility] - Medical Oncology [address] [place] [address] Johnny Carson MD PhD Adenocarcinoma, NOS of colon, NOS (Primary Dx); 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; Adenocarcinoma, NOS of ascending colon 04/04/2024 Travel 04/03/2024 Telephone [facility] - Medical Oncology [address] [facility] Main [facility], 7th [place] [address] Dana Ray V, RN Nurse Navigation (Set up MyChart) 03/23/2024 Telephone [facility] Medical Oncology [address] [place] [address], 7th [place] [address] Dana Ray V, RN Follow-up 03/22/2024 Travel 03/21/2024 3:30 PM [employer] Office Visit [facility] [place] [facility] - Medical Oncology [address] [place] [address] Johnny Carson MD PhD Adenocarcinoma, NOS of colon, NOS (Primary Dx) 03/21/2024 Travel 03/20/2024 8:20 PM [employer] Ancillary Procedure [facility] [address] [place] [address] Johnny Carson MD PhD Cancer 03/20/2024 8:15 PM [employer] Ancillary Procedure [facility] [address] [place] [address] Johnny Carson MD PhD Cancer 03/20/2024 8:10 PM [employer] Ancillary Procedure [facility] [address] [place] [address] Johnny Carson MD PhD Cancer 03/20/2024 8:05 PM [employer] Ancillary Procedure [facility] [address] [place] [address] Johnny Carson MD PhD Cancer 03/20/2024 8:00 PM [employer] Ancillary Procedure [facility] [address] [place] [address] Johnny Carson MD PhD Cancer 03/19/2024 Telephone [facility] [address] [place] [address], [address] [place] [address] [place] [address] Dana Ray V, RN New Patient (Introduce my role as Treatment Nurse Navigator) 03/16/2024 Telephone [facility] [address] [place] [address], [address] [place] [address] [place] [address] Komal Akhtar, RN Nurse Navigation 03/15/2024 9:55 AM CDT Ancillary Procedure [facility] [address] [address] Tamara Joshi PA Adenocarcinoma, NOS of colon, NOS 03/15/2024 Lab Requisition [facility] Rafael Cheng MD Zaldana, Francisco 03/14/2024 1:15 PM CDT - 03/14/2024 11:59 PM CDT Hospital Encounter [facility] [address] [place] [address] Tamara Joshi PA Adenocarcinoma, NOS of colon, NOS Discharge Disposition: Home 03/14/2024 12:30 PM CDT Office Visit [facility] [address] [place] [address], [address] [place] [address] Tamara Joshi PA Adenocarcinoma, NOS of colon, NOS (Primary Dx) 03/14/2024 11:00 AM CDT NPR MDA PATIENT ACCESS Tamara Joshi PA 03/14/2024 Travel 03/13/2024 Telephone [facility] Oncology [address] [place] [address], [address] [place] [address] Komal Akhtar, RN Nurse Navigation 03/12/2024 Orders Only [facility] [address] [place] [address], [address] [place] [address] Tamara Joshi PA Adenocarcinoma, NOS of colon, NOS (Primary Dx) 03/08/2024 Lab Requisition [facility] Rafael Cheng MD Witson, Anne S., MD 03/01/2024 Telephone [facility] [place] [facility] Medical Oncology [address] [place] [address], [facility] [place] [address] Giovana Komal, RN New Patient 02/28/2024 Telephone [facility] Oncology [address] [facility] Main [facility], 7th [place] [address] Komal Akhtar, RN New Patient after 05/30/2023 Surgical History Surgery Date Site/Laterality Comments COLON SURGERY CYSTOSCOPY W/ LASER LITHOTRIPSY AL INSJ TUNNELED CTR VAD W/SUBQ PORT AGE 5 YR/> 04/16/2024 Chest/Right Procedure: PORT-A-CATH PLACEMENT; Surgeon: Letty Rajput MD; Location: [facility]; Service: SURG ONC - GENERAL Medical devices from this surgery are in the Medical Devices section. [facility] FLUORO CENTRAL VENOUS ACCESS DEV PLACEMENT 04/16/2024 Neck/Right Procedure: FLUORO GUIDANCE FOR CENTRAL VENOUS ACCESS DEVICE PLACEMENT, REPLACEMENT, OR REMOVAL; Surgeon: Letty Rajput MD; Location: [facility]; Service: SURG ONC - GENERAL Medical devices from this surgery are in the Medical Devices section. [facility] US VASC ACCESS SITS VSL PATENCY NDL ENTRY 04/16/2024 Neck/Right Procedure: US GUIDANCE WITH EVAL OF POTENTIAL ACCESS SITES, REALTIME US VISUALIZATION OF VASC NEEDLE ENTRY; Surgeon: Letty Rajput MD; Location: [facility]; Service: SURG ONC - GENERAL Medical devices from this surgery are in the Medical Devices section. Medical History Medical History Date Comments Malignant neoplasm of colon Personal history of kidney stones Family History Medical History Relation Name Comments -Unknown cancer Maternal Grandmother Relation Name Status Comments Maternal Grandmother Social History Tobacco Use Types Packs/Day Years Used Date Smoking Tobacco: Never Smokeless Tobacco: Never Tobacco Cessation:Counseling Given: No Alcohol Use Standard Drinks/Week Comments Not Currently 0 (1 standard drink = 0.6 oz pur e alcohol) Comments No Sex and Gender Information Value Date Recorded Sex Assigned at Not on file Legal Sex Female 1:38 PM CDT Gender Identity Not on file Sexual Orientation Not on file Obstetrics History Last Filed Vital Signs Vital Sign Reading Time Taken Comments Blood Pressure 122/73 05/23/2024 1:26 PM [employer] Pulse 99 05/23/2024 1:26 PM [employer] Temperature 36.9 C (98.4 F) 05/21/2024 1 0:39 AM [employer] Respiratory Rate 18 05/23/2024 1:26 PM [employer] Oxygen Saturation 97% 05/23/2024 1:26 PM [employer] Inhaled Oxygen Concentration - - Weight 62.1 kg (136 lb 14.5 oz) 05/23/2024 1:25 PM [employer] Height 163 cm (5' 4.17") 04/25/2024 9:22 AM [employer] Body Mass Index 23.37 04/25/2024 9:22 AM [employer] Plan of Treatment Upcoming Encounters Date Type Department Care Team (Late st Contact Info) Description 06/06/2024 7:00 AM [employer] Lab MD [facility] [address] [place] [address] Johnny Carson MD PhD [address] [place] [address] [email or web address]. rg 06/06/2024 8:00 AM [employer] Follow-Up [facility] - Medical Oncology [address] [place] [address] Johnny Carson MD PhD [address] [place] [address] [email or web address] rg 06/06/2024 9:00 AM [employer] Infusion [facility] - Infusion [address] [place] [address] Johnny Carson MD PhD [address] [place] [address] [email or web address]. rg 06/08/2024 3:00 PM [employer] Infusion MD [facility] - Infusion [address] [place] [address] Johnny Carson MD PhD [address] [place] [address] (work) [email or web address]. rg Health Maintenance Due Date Last Done Comments COVID-19 Vaccine (#1) 08/19/1955 Pneumococcal Vaccine: 65+ Years (1 of 1 - PCV) 017 Influenza Vaccine (#1) 2024 Medical Devices Implanted Type Area Leather Case Finisher Device Identifier Shelf Expiration Date Model / Serial / Lot Jonathan Reid Isp 6fr - Sn/A Implanted:Qt y: 1 on 04/16/2024 by Letty Rajput MD at [facility] Implant Right: Internal Jug[employer] [id number] 12/13/2024 [id number] / N/A / [id number] Description:Catheter length- 26 cm. 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 .CBC Routine 04/23/2024 7:28 AM [employer] Adenocarcinoma, NOS of ascending colon 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 CARCINOEMBRYONIC ANTIGEN Routine 04/23/2024 7:28 AM [employer] Adenocarcinoma, NOS of ascending colon 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 COMPLETE BLOOD COUNT W/ DIFFERENTIAL Routine 04/23/2024 7:28 AM [employer] Adenocarcinoma, NOS of ascending colon 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 COMPREHENSIVE METABOLIC PANEL Routine 04/23/2024 7:28 AM [employer] Adenocarcinoma, NOS of ascending colon 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 FL CENTRAL VENOUS PLACE EXCHANGE Routine 04/16/2024 10:11 AM [employer] XR CHEST 1 VW POST IMPLANT Routine 04/16/2024 10:10 AM [employer] INTRAOPERATIVE US STAT 04/16/2024 8:5 3 AM [employer] CHG US VASC ACCESS SITS VSL PATENCY NDL ENTRY 04/16/2024 8:34 AM [employer] Adenocarcinoma, NOS of ascending colon Special Needs [id number]-murali priince CHG FLUORO CENTRAL VENOUS ACCESS DEV PLACEMENT 04/16/2024 8:34 AM [employer] Adenocarcinoma, NOS of ascending colon Special Needs [id number]-murali priince AL INSJ TUNNELED CTR VAD W/SUBQ PORT AGE 5 YR/> 04/16/2024 8:34 AM [employer] Adenocarcinoma, NOS of ascending colon Special Needs 497-[id number]-murali priince US GUIDED CENTRAL LINE PLACEMENT Routine 04/16/2024 7:23 AM [employer] EKG, 12-LEAD (SCHEDULED) Routine 04/09/2024 Pre-surgery testing <Preprocedural examination; Cardiovascular> .CBC Routine 04/04/2024 10:01 AM [employer] Adenocarcinoma, NOS of colon, NOS CARCINOEMBRYONIC ANTIGEN Routine 04/04/2024 10:01 AM [employer] Adenocarcinoma, NOS of colon, NOS PHOSPHORUS LEVEL Routine 04/04/2024 10:01 AM [employer] Adenocarcinoma, NOS of colon, NOS LACTATE DEHYDROGENASE Routine 04/04/2024 10:01 AM [employer] Adenocarcinoma, NOS of colon, NOS MAGNESIUM LEVEL Routine 04/04/2024 10:01 AM [employer] Adenocarcinoma, NOS of colon, NOS COMPREHENSIVE METABOLIC PANEL Routine 04/04/2024 10:01 AM [employer] Adenocarcinoma, NOS of colon, NOS COMPLETE BLOOD COUNT W/ DIFFERENTIAL Routine 04/04/2024 10:01 AM [employer] Adenocarcinoma, NOS of colon, NOS HP LB MDA ANA LIQUID BIOPSY INTERPRETATION AND REPORT Routine 03/22/2024 10:12 AM [employer] Adenocarcinoma, NOS of colon, NOS CT CHEST ABDOMEN PELVIS W WO CONTRAST Routine 03/15/2024 11:53 AM CDT Adenocarcinoma, NOS of colon, NOS .CBC Routine 03/14/2024 1:27 PM CDT Adenocarcinoma, NOS of colon, NOS HEPATITIS C VIRUS ANTIBODY Routine 03/14/2024 1:27 PM CDT Adenocarcinoma, NOS of colon, NOS HEPATITIS B SURFACE ANTIBODY Routine 03/14/2024 1:27 PM CDT Adenocarcinoma, NOS of colon, NOS HEPATITIS B SURFACE ANTIGEN Routine 03/14/2024 1:27 PM CDT Adenocarcinoma, NOS of colon, NOS HEPATITIS B CORE ANTIBODY Routine 03/14/2024 1:27 PM CDT Adenocarcinoma, NOS of colon, NOS CARCINOEMBRYONIC ANTIGEN Routine 03/14/2024 1:27 PM CDT Adenocarcinoma, NOS of colon, NOS PROTHROMBIN TIME Routine 03/14/2024 1:27 PM CDT Adenocarcinoma, NOS of colon, NOS PHOSPHORUS LEVEL Routine 03/14/2024 1:27 PM CDT Adenocarcinoma, NOS of colon, NOS MAGNESIUM LEVEL Routine 03/14/2024 1:27 PM CDT Adenocarcinoma, NOS of colon, NOS LACTATE DEHYDROGENASE Routine 03/14/2024 1:27 PM CDT Adenocarcinoma, NOS of colon, NOS COMPREHENSIVE METABOLIC PANEL Routine 03/14/2024 1:27 PM CDT Adenocarcinoma, NOS of colon, NOS COMPLETE BLOOD COUNT W/ DIFFERENTIAL Routine 03/14/2024 1:27 PM CDT Adenocarcinoma, NOS of colon, NOS MDA AP IHC WORKUP Routine 03/12/2024 10:18 AM CDT Adenocarcinoma, NOS of colon, NOS OSI US PELVIC Routine 01/18/2024 6:46 PM CDT Cancer PATHOLOGY OUTSIDE INTERPRETATION Routine 01/18/[address] ABDOMEN AND PELVIS Routine 01/03/2024 6:47 PM CDT Cancer OSI US PELVIC Routine 12/15/2023 6:47 PM CDT Cancer OSI US ABDOMINAL COMPLETE Routine 12/15/2023 6:47 PM CDT Cancer OSI US PELVIC Routine 12/15/2023 6:46 PM CDT Cancer after 05/30/2023 Results * (ABNORMAL) .CBC (05/21/2024 8:30 AM [employer]) Only the most recent of4 resultswithin the time period is included. White Blood Cell 4.5 4.1 - 10.5 K/uL 05/21/2024 8:40 AM [facility] Red Blood Cell 4.29 3.99 - 5.46 M/uL 05/21/2024 8:40 AM [facility] Hemoglobin 13.3 12.2 - 15.3 g/dL 05/21/2024 8:40 AM [facility] Hematocrit 41.1 36.4 - 46.8 % 05/21/2024 8:40 AM [facility] Mean Cell Volume 96 82 - 99 fL 05/21/2024 8:40 AM [facility] Mean Cell Hemoglobin 31.0 26.6 - 33.2 pg 05/21/2024 8:40 AM [facility] Mean Cell Hemoglobin Concentration 32.4 31.1 - 35.2 g/dL 05/21/2024 8:40 AM [facility] RDW-SD 53.0(H) 37.5 - 49.7 fL 05/21/2024 8:40 AM [facility] Red Cell Diameter Width 14.8 11.6 - 15.5 % 05/21/2024 8:40 AM [facility] Platelet 271 160 - 397 K/uL 05/21/2024 8:40 AM [facility] Mean Platelet Volume 9.0(L) 9.1 - 12.6 fL 05/21/2024 8:40 AM [facility] Neutrophil % 58.3 43.2 - 72.7 % 05/21/2024 8:40 AM [facility] Lymphocyte % 28.5 16.8 - 46.2 % 05/21/2024 8:40 AM [facility] Monocyte % 10.8 5.1 - 12.5 % 05/21/2024 8:40 AM [facility] Eosinophil % 2.0 0.4 - 6.3 % 05/21/2024 8:40 AM [facility] Basophil % 0.2 0.2 - 1.4 % 05/21/2024 8:40 AM [facility] IGRE % 0.2 0.1 - 1.5 % 05/21/2024 8:40 AM [facility] Comment:The IGRE% includes M etamyelocytes, Myelocytes and Promyelocytes. Neutrophil Abs 2.59 1.95 - 7.25 K/uL 05/21/2024 8:40 AM [facility] Lymphocyte Abs 1.27 1.01 - 3.24 K/uL 05/21/2024 8:40 AM [facility] Monocyte Abs 0.48 0.24 - 0.85 K/uL 05/21/2024 8:40 AM [facility] Eosinophil Abs 0.09 0.02 - 0.50 K/uL 05/21/2024 8:40 AM [facility] Basophil Abs 0.01(L) 0.02 - 0.09 K/uL 05/21/2024 8:40 AM [facility] IG Abs 0.01 0.01 - 0.12 K/uL 05/21/2024 8:40 AM [facility] Blood Peripheral blood specimen / Unknown Port / Unknown 05/21/2024 8:30 AM [employer] 05/21/2024 8:31 AM [employer] us Johnny Carson MD PhD LAB BLOOD ORDERABLES Final R esult [place] [facility] [place] [address] [place] [address] [place] [address] * (ABNORMAL) Comprehensive Metabolic Panel (05/21/2024 8:30 AM [employer]) Only the most recent of4 resultswithin the time period is included. Bilirubin Total 1.0 0.0 - 1.2 mg/dL 05/21/2024 9:06 AM [facility] Comment:Indocyanine Green (I CG) may cause falsely elevated bilirubin results. Total and direct bilirubin must not be measured from samples containing indocyanine green. False elevation of total bilirubin can be seen in patients with IgG concentrations above 28 g/L. eGFR 89 >=60 mL/min/1. 73 sq. m 05/21/2024 9:06 AM [facility] Comment: The eGFRcr is calculated with the 2020 CKD-EPI creatinine equation using creatinine, patient's age, and sex for adults 18 years of age and older. Other factors, especially muscle mass, may affect accuracy and need to be considered. According to the Kidney Disease: Improving Global Outcomes (KDIGO) CKD Work Group 2012 Clinical Practice Guideline, chronic kidney disease (CKD) is defined as the abnormalities of kidney structure or function, present for more than 3 months, with implications for health. CKD should be classified by cause, GFR category, and albuminuria category. KDIGO guidelines provide the following GFR categories. Stage / Description / GFR mL/min/1.73 m2: G1* / Normal or high / >= 90 G2* / Mildly decreased / 60-89 G3a / Mildly to moderately decreased / 45-59 G3b / Moderately to severely decreased / 30-44 G4 / Severely decreased / 15-29 G5 / Kidney failure / <15 *In the absence of evidence of kidney damage, neither G1 nor G2 fulfill criteria for CKD. Tot Protein 7.9 6.4 - 8.3 gm/dL 05/21/2024 9:06 AM [facility] Calcium Level Total 9.4 8.2 - 10.2 mg/dL 05/21/2024 9:06 AM [facility] Alkaline Phosphatase 103 35 - 104 U/L 05/21/2024 9:06 AM [facility] Albumin Level 4.4 3.5 - 5.2 gm/dL 05/21/2024 9:06 AM [facility] AST 17 <=32 U/L 05/21/2024 9:06 AM [facility] ALT 9 <=33 U/L 05/21/2024 9:06 AM [facility] Sodium Level 141 136 - 145 mmol/L 05/21/2024 9:06 AM [facility] Potassium Level 4.2 3.4 - 4.5 mmol/L 05/21/2024 9:06 AM [facility] Chloride 102 98 - 107 mmol/L 05/21/2024 9:06 AM [facility] CO2 28 22 - 29 mmol/L 05/21/2024 9:06 AM [facility] Anion Gap 11 4 - 14 mmol/L 05/21/2024 9:06 AM [facility] Creatinine 0.72 0.51 - 0.95 mg/dL 05/21/2024 9:06 AM [facility] BUN 13 6 - 23 mg/dL 05/21/2024 9:06 AM [facility] Glucose Level 103(H) 70 - 99 mg/dL 05/21/2024 9:06 AM [facility] Comment: Effective 12/10/15, the glucose reference intervals have been updated based on [place] Diabetes [employer] guidelines (Standards of Medical Care in Diabetes 2016. Diabetes Care 2016; 39: S13-S22). Fasting blood glucose: Normal: 70-99 mg/dL Impaired fasting glucose (increased risk for diabetes or pre-diabetes): 100-125 mg/dL Diabetes mellitus: >/=126 mg/dL Random blood glucose: Normal: 70-199 mg/dL Note: Random glucose >100 mg/dL is associated with increased risk for diabetes. Blood Peripheral blood specimen / Unknown Port / Unknown 05/21/2024 8:30 AM [employer] 05/21/2024 8:31 AM [employer] us Johnny Carson MD PhD LAB BLOOD ORDERABLES Final R esult [facility] [place] [address] [facility], [facility] [address] [place] [address] * CEA (04/23/2024 7:28 AM [employer]) Only the most recent of3 resultswithin the time period is included. Carcinoembryonic Antigen 1.9 <=3.8 ng/mL 04/23/2024 8:08 AM [employer] [place] Blood Peripheral blood specimen / Unknown Venipuncture / Unknown 04/23/2024 7:28 AM [employer] 04/23/2024 7:28 AM [employer] Narrative [place] - 04/23/2024 8:08 AM [employer] Reference Ranges (age 20-69 years): Non-smoker: <= 3.8 ng/mL Smoker: <= 5.5 ng/mL This test is measured by electrochemiluminescence immunoassay on [employer] Renaldo immunoassay analyzers. Results obtained in different methods are not interchangeable. us Johnny Carson MD PhD LAB BLOOD ORDERABLES Final R esult [facility] [address] [facility], [facility] [address] [place] [address] * FL Central Venous Place Exchange (04/16/2024 10:11 AM [employer]) Narrative Systemgenerated, Documentation - 04/16/2024 10:11 AM [employer] This procedure requires no interpretation from the radiologist. Letty Rajput MD IMG FLUOROSCOPY ORDERABL ES Final Result * XR Chest 1 View Post Implant (04/16/2024 10:10 AM [employer]) Anatomical Region Laterality Modality Chest Digital Radiogra phy 04/16/2024 10:1 4 AM [employer] Impressions 04/16/2024 10:15 AM [employer] Right central catheter with its distal tip over the atriocaval junction and without evident pneumothorax. ACTIONABLE ITEMS/RECOMMENDATIONS*: None. *An Actionable Finding is a finding that may be unrelated to the original reason for imaging but potentially actionable, meaning further investigation may be necessary. The Actionable Findings Vigilance Unit (AFVU) assists medical providers with responding to additional radiologic findings that are unexpected and potentially actionable. Narrative 04/16/2024 10:15 AM [employer] FULL RESULT: Examination: XR CHEST 1 VW POST IMPLANT on 04/16/2024 10:10 AM. Clinical History: Adenocarcinoma, NOS of ascending colon Indication: Check Central Line placement Comparison: None Technique: Frontal radiograph of the chest Findings: Support Apparatus: Right central catheter with its distal tip over the atriocaval junction. Lungs/Pleura/Mediastinum: No evident pneumothorax. No evidence of focal lung opacities. Heart size is normal. Procedure Note Jonathan Arciniega MD - 04/16/2024 FULL RESULT: Examination: XR CHEST 1 VW POST IMPLANT on 04/16/2024 10:10 AM. Clinical History: Adenocarcinoma, NOS of ascending colon Indication: Check Central Line placement Comparison: None Technique: Frontal radiograph of the chest Findings: Support Apparatus: Right central catheter with its distal tip over theatriocaval junction. Lungs/Pleura/Mediastinum: No evident pneumothorax. No evidence of focallung opacities. Heart size is normal. IMPRESSION: Right central catheter with its distal tip over the atriocaval junctionand without evident pneumothorax. ACTIONABLE ITEMS/RECOMMENDATIONS*: None. *An Actionable Finding is a finding that may be unrelated to the originalreason for imaging but potentially actionable, meaning furtherinvestigation may be necessary. The Actionable Findings Vigilance Unit(AFVU) assists medical providers with responding to additional radiologicfindings that are unexpected and potentially actionable. us Letty Rajput MD [facility] DIAGNOSTIC IMAGING O RDERABLES Final Result * Intraoperative Ultrasound - For Image Storage (without Report) (04/16/2024 8:53 AM [employer]) Narrative Systemgenerated, Documentation - 04/16/2024 8:53 AM [employer] This procedure requires no interpretation from the radiologist. us Letty Rajput MD [facility] NON DI ORDERABLES Fi nal Result * US Guided Central Line Placement Without Report (04/16/2024 7:23 AM [employer]) Narrative Systemgenerated, Documentation - 04/16/2024 7:23 AM [employer] This procedure requires no interpretation from the radiologist. Anjana Yip TUMBLING MACHINE OPERATOR IMG NON DI ORDERABLES Final Result * EKG, 12-Lead (Scheduled) (04/09/2024) Anjana Yip TUMBLING MACHINE OPERATOR ECG ORDERABLES Final Result Performing Organization Address City/[facility]/ZIP Co de Phone Number KIA[facility] [employer] * Phosphorus Level (04/04/2024 10:01 AM [employer]) Only the most recent of2 resultswithin the time period is included. Phosphorus Level 3.5 2.5 - 4.5 mg/dL 04/04/2024 10:56 AM [employer] [place] Blood Peripheral blood specimen / Unknown Venipuncture / Unknown 04/04/2024 10:01 AM [employer] 04/04/2024 10:01 AM [employer] [facility] [email or web address] [place] LAB BLOOD ORDERABLES Final Resul t Performing Organization Address [facility] Co de Phone Number [address] [address] * Magnesium Level (04/04/2024 10:01 AM [employer]) Only the most recent of2 resultswithin the time period is included. Magnesium Level 2.2 1.6 - 2.6 mg/dL 04/04/2024 10:56 AM [employer] [place] Blood Peripheral blood specimen / Unknown Venipuncture / Unknown 04/04/2024 10:01 AM [employer] 04/04/2024 10:01 AM [employer] [facility] [email or web address] [place] LAB BLOOD ORDERABLES Final Resul t Performing Organization Address City/[facility] Co de Phone Number [address], [address] [address] * LDH (04/04/2024 10:01 AM [employer]) Only the most recent of2 resultswithin the time period is included. LDH 203 135 - 214 U/L 04/04/2024 10:56 AM [employer] [place] Blood Peripheral blood specimen / Unknown Venipuncture / Unknown 04/04/2024 10:01 AM [employer] 04/04/2024 10:01 AM [employer] Narrative [place] - 04/04/2024 10:56 AM [employer] Results greater than 1651 U/L may not be reliable due to matrix effect with extended dilution as it exceeds the inside sales account manager's recommended limit. Caution should be exercised when interpreting such values and done in conjunction with clinical context. us Annalise DEL RIO LAB BLOOD ORDERABLES Final Resul t [facility] [place] [address] [facility] [address] [facility], [facility] [address] [place] [address] * MD ZAYNAB PEREZ LB: Mutation Analysis Precision Panel Interpretation and Report (03/22/2024 10:12 AM [employer]) Interpretation Michael [facility] [id number] SNVs/Indels CNVs Fusions More than 5 genes. See details None None Somatic Mutations (SNVs/Indels) Gene DNA Protein Location VAF Type APC c.3956del p.Z9199pu*2 Exon 16 1% Deletion - Frameshift ARID1A c.4305T>G p.Y1435* Exon 18 1% SNV - Nonsense FGF3 c.544G>A p.V182M Exon 3 1% SNV - Missense INHBA c.389-8A>C Intron 2 1% SNV KRAS c.38G>A p.G13D Exon 2 1% SNV - Missense PIK3R1 c.1690A>G p.N564D Exon 13 1% SNV - Missense SOS1 c.3863C>G p.Q2891N Exon 23 1% SNV - Missense TET2 c.3940del p.B2493kh*49 Exon 7 1% Deletion - Frameshift TGFBR2 c.1583G>A p.R528H Exon 7 1% SNV - Missense Copy Number Variations (CNVs) None Identified Gene Fusions None Identified Clinical test requisition for mutation studies on the following genes was received: APC, BRAF, NRAS COMMENTS: Cancer type: Metastatic colonic adenocarcinoma Comparison with tissue sequencing: N/A The selection and classification of variants for reporting incorporates review of available clinicopathologic information, correlation with current clinical presentation, any consultations with additional healthcare providers and exercise of medical judgement by the sign-out pathologist. GUIDE TO STANDARDIZED NOMENCLATURE AND EXPLANATION OF CHANGES: Variants identified are described using an implementation of a standardized nomenclature developed by the Human Genome Variation Society (HGVS, http://www.hgvs.org /varnomen/). The normative Genbank gene reference sequence identifier and gene symbol in parentheses are provided, followed by the coding DNA sequence change (e.g., "c. 200A>G", which would mean that the position 200 adenine is changed to guanine), and then the inferred protein change (e.g., "p. V35C", which would mean that the amino acid at codon 35 is changed from valine to cysteine). Additional explanations for the DNA and protein changes seen in the current specimen are shown in the following tables: Explanation of DNA variant/mutation types seen in this specimen DNA Change SNV A single nucleotide difference (point mutation) has been identified in the patient sample relative to the reference wild-type gene sequence Deletion A sequence of DNA has been deleted in the patient sample relative to the reference wild-type gene sequence Explanation of protein variant/mutation types seen in this specimen Protein Change Missense A single amino acid residue change in the patient sample relative to the reference wild-type protein sequence Nonsense A single nucleotide change resulting in a premature stop codon leading to a truncated protein product in the patient sample relative to the reference wild-type protein sequence Frameshift A mutation involving deletion or insertion of a non-triplet number of nucleotides in the patient sample relative to the reference wild-type sequence. Frameshift mutations generally result in a nonsense translation with early termination of translation. Additional information on genes/variants with findings identified on this assay: Gene Genomic Variant COSMIC dbSNP ClinVar APC chr5:[id number] TC>T c.3956del p.W1625hu*2 [id number] ARID1A chr1:68580895 T>G c.4305T>G p.Y1435* FGF3 chr11:39244964 C>T c.544G>A p.V182M INHBA chr7:16192288 T>G c.389-8A>C KRAS chr12:46074883 C>T c.38G>A p.G13D [id number] PIK3R1 chr5:64626335 A>G c.1690A>G p.N564D [id number] SOS1 chr2:73966578 G>C c.3863C>G p.F1851P TET2 chr4:737314722 TG>T c.3940del p.H6062wh*49 TGFBR2 chr3:57746840 G>A c.1583G>A p.R528H [id number] Link to COSMIC: https://cancer.[facility].ac.uk/cosmic Link to dbSNP: https://www.ncbi.[facility].nih.gov/snp Link to ClinVar: https://www.ncbi.[facility].nih.gov/clinvar Methodology: Test Description: [facility] Mutation Analysis Precision Panel Liquid Biopsy (MDA ANA LB) assay is a custom high-throughput next generation sequencing-based CLIA assay that uses targeted hybridization-based capture technology for detection of sequence variants/mutations in 701 genes (single nucleotide variants [SNVs] and insertion/deletion alterations [indels]), copy number variants (CNVs) in 19 genes and select gene rearrangements in 34 genes (Fusions) in cell-free DNA (cfDNA) isolated from plasma specimens (See Appendix Table 1 and 2). MDA ANA LB employs DNA extracted from both plasma and paired peripheral blood mononuclear cells (PBMC) specimens in our CLIA-certified molecular diagnostic laboratory. Routinely collected blood samples are the accepted specimen types. Thirty nanograms of cfDNA is recommended, with a minimum accepted 20ng of genomic DNA, which undergoes whole-genome library construction with adapters carrying Unique Molecular Indices (CELINE) allowing tagging of original double-stranded DNA that facilitates statistical reconstruction of reads sequenced as duplicates from a single-amplified genome. A target area of 2.1 megabases (Mb) GRCh37/hg19 genome is enriched with custom hybrid-capture, 120nt dsDNA probes. MDA ANA LB assay uses the [employer] next generation sequencing platform and bidirectional paired-end sequencing to identify nucleic acid variants for all coding regions from most genes in the panel, the TERT promoter, 1 non-coding RNA gene (TERC), and clinically relevant rearrangements. Reported somatic mutations are identified by comparison to the human genome reference sequence GRCh37/hg19 and reviewed in payasUgym against a process-matched normal control. Data analysis is performed in house by the [facility] Bioinformatics pipeline (BIP) which relies on the dual-duplex molecular barcoding for consensus analysis to reduce sequencing artifacts and achieve greater sensitivity and positive predictive value. [facility] is intended to provide tumor mutation profiling in accordance with institutional guidelines in oncology for patients with solid malignant neoplasms. Report annotation and software: A post-variant calling analysis and annotation tool, payasUgym version 2.0.0.8, was used in the construction of this report. The following additional software tools were utilized in the experimental setup and bioinformatic analysis: [employer] Software 1.8, [employer] Real Time Analysis Software 3.4.4, [employer].2 and [facility] BIP v2.0. Detailed information about the signal-processing, base calling, alignment, and variant calling algorithms are available upon request. Test performance specifications: For this assay, sensitivity of detection is related in part to depth of coverage and the amount of input cfDNA. We determined the effective lower limit of detection of this assay (analytical sensitivity) for single nucleotide variations, insertions/deletion s and gene fusions to be 0.5% variant allelic frequency (VAF) for 30ng cfDNA input and 1% VAF for 10ng cfDNA input by taking into consideration the depth of coverage at a given base. Sensitivity for amplifications depends on both input cfDNA and the amplitude of the gene amplification. The presence of amplification is determined by individual gene Z-score and copy number threshold derived from healthy normal cfDNA. A nominal threshold of 2.5 copies is used to restrict reporting to high-confidence calls. Limitations of the test: - MyWave requires normal non-tumor DNA, typically isolated from the PBMCs from the same collection tube, for appropriate interpretation of somatic mutations. - Silent mutations (mutations that do not result in an amino acid change) are not reported. - The primary purpose of this panel is to detect somatic mutations in genes involved in oncogenesis of this patient s tumor. The test or the results thereof should not be used to detect germline variants for hereditary cancer syndromes. If a hereditary cancer syndrome is suspected, separate testing of a germline sample should be performed using an appropriate assay. - Variants detected below Limits of Detection (LoD) not deemed to be confirmable by independent, orthogonal methods and/or in significant discordance with the tumor fraction in the tested sample may be excluded as the clinical significance and reliability of such low-level mutation calls is not clear. - The assay is designed to detect point mutations, insertion/deletions , copy number gains (amplifications) and gene fusions. - The assay does not detect copy number losses. - Quality and quantity of cfDNA can influence variant detection. - False negative results can be obtained at low cfDNA inputs. - Copy number gains below 2.5 cut-off not confirmable by independent, orthogonal methods may be excluded as the clinical significance and reliability of such low-level calls are not clear. Correlation with traditional methods of copy number assessment such as fluorescent in situ hybridization (FISH) on tumor tissue is recommended if clinical action based on findings is being considered. - Since hematopoietic cells can also contribute to cfDNA, the possibility that any mutation detected may represent clonal hematopoiesis of indeterminate potential (CHIP) or a clonal hematologic disorder cannot be ruled out. - The results of MDA ANA LB genomic testing should be correlated with all available and applicable clinicopathologic information by the treating physician in clinical decision making. Sequencing coverage of the genes: The following table describes the extent and adequacy of coverage for ordered genes only. Covered genes/exons/codons are defined as those having total coverage depth of greater than or equal to 1000 VVI-kodeo-wkdgaubme collapsed reads (minimum 1000x coverage). Mutations in ordered genes outside the optimally covered regions listed below may be detected with diminished sensitivity and cannot be ruled out. Coverage information for non-ordered genes for this sample is complex and lengthy but may be requested from the laboratory if required for clinical care or correlative purposes. Coverage for ordered genes and codon(s) tested with a minimum of 1000x coverage Gene Exons (codons) tested APC ([id number]) 2-16 (9001) NRAS ([id number]) 2-5 (1190) APPENDIX: Table 1: Genes of interest for SNVs, INDELs and CNVs ABL1 ABL2 ABRAXAS1 ACVR1 ACVR1B ACVR2A ADGRA2 AJUBA AKT1 AKT2 AKT3 AKTIP ALK VEBC92S AMER1 ANKRD11 APC AR* ARAF ARFRP1 ARID1A ARID1B ARID2 ARID5B ASCC3 ASPM ASXL1 ASXL2 THA ATR ATRIP ATRX AURKA AURKB AURKC AXIN1 AXIN2 SHUN B2M BAP1 BARD1 BAZ2A BBC3 BCL10 BCL11A BCL2 BCL2L1 KGR5I94 BCL2L2 BCL6 BCL7A BCOR BCORL1 BCR BIRC2 BIRC3 BLM BLNK BMPR1A BRAF* BRCA1 BRCA2 BRCC3 BRD4 BRIP1 BTG1 BTG2 BTK BUB1 CALR CARD11 CASP8 CBFB CBL CCKAR CCN6 CCNA2 CCND1* CCND2* CCND3 CCNE1* CCNE2 CCR4 CCR7 CD274 CD276 CD28 CD58 CD74 CD79A CD79B CD8A CDC20 CDC27 CDC42 CDC6 CDC73 CDH1 CDK12 CDK2 CDK4* CDK6* CDK8 CDKN1A CDKN1B CDKN2A CDKN2B CDKN2C CEBPA CENPA CENPE CHAF1A CHD2 CHEK1 CHEK2 CHTF8 CIC CIITA CNOT3 COL2A1 COP1 CREBBP CRKL CRLF2 CSF1R CSF3R CTCF CTLA4 CTNNA1 CTNNB1 CUL3 CUL4A CUL4B CUX1 CXCR4 CYLD DLC2H92 DAXX ERATG7Q GIGK6G8 DDB1 DDR1 DDR2 DDX3X DICER1 DIS3 DIS3L2 DLL3 DNA2 DNAJB1 DNMT1 DNMT3A DNMT3B DOT1L DUSP2 E2F3 EED EGFL7 EGFR* EGR1 EGR2 EIF1AX EIF4A2 EIF4E ELF3 ELF4 ELOC EMSY ENO1 EP300 EPCAM EPHA2 EPHA3 EPHA5 EPHA7 EPHB1 EPHB4 ERBB2* ERBB3 ERBB4 ERCC1 ERCC2 ERCC3 ERCC4 ERCC5 ERCC6 ERG ERRFI1 ESR1 ETV1 ETV4 ETV5 ETV6 EWSR1 EXO1 EZH2 FADD FAM50A FANCA FANCC FANCD2 FANCE FANCF FANCG FANCI FANCL FANCM FAS FAT1 FBXW7 FGF10 FGF14 FGF19 FGF23 FGF3 FGF4 FGF5 FGF6 FGF9 FGFR1* FGFR2* FGFR3* FGFR4 FH FLCN FLT1 FLT3 FLT4 FOXA1 FOXL2 FOXO1 FOXP1 FRS2 FTO FUBP1 FYN FZR1 GABRA6 YEFH41F GATA1 GATA2 GATA3 GATA4 GATA6 GEN1 GID4 GLI1 GNA11 GNA13 GNAQ GNAS OFP585 GPS2 GREM1 GRIN2A GRM3 GSK3B H1-2 H1-4 H2AX H2BC5 H3-3A H3-3B H3-4 H3-5 H3C1 H3C10 H3C11 H3C12 H3C13 H3C2 H3C3 H3C4 H3C6 H3C7 H3C8 HDAC2 HDAC9 HELQ HERC2 HFM1 HGF HLA-A HLA-B HLA-C HMGA2 HNF1A HOXB13 HRAS HSD3B1 EZX56AV3 MGF55DN4 HUWE1 HVCN1 ICOSLG ID3 IDH1 IDH2 IFNGR1 IGF1 IGF1R IGF2 IGLL5 IKBKE IKZF1 IKZF3 IL10 IL2RG IL7R INHA INHBA INO80 INPP4A INPP4B INSR IRAK1 IRF2 IRF4 IRF8 IRS1 IRS2 ITPKB JAK1 JAK2 JAK3 BENJAMIN KAT6A KDM3B KDM5A KDM5C KDM6A KDR KEAP1 SAM KIT* KLF2 KLF4 KLHL6 KMT2A KMT2B KMT2C KMT2D KNSTRN KRAS* LATS1 LATS2 LCK LIG4 LMO1 LRP1B LTB LTK DOMONIQUE MAD2L2 MAGOH MALT1 MAP2K1 MAP2K2 MAP2K4 MAP2K7 MAP3K1 JJK0U49 KRD6T89 MAP3K4 MAPK1 MAPK3 MAPK8 MAX MCL1 MDC1 MDM2 MDM4 MED12 MEF2B MEN1 MERTK MET* MFHAS1 MGA MGMT MITF MLH1 MLH3 MPL MRE11 MSH2 MSH3 MSH6 MST1 MST1R MTAP MTOR MUSK MUTYH MXD4 MYB MYBL1 MYC* MYCL MYCN MYD88 MYOD1 NBN NCOA3 NCOR1 NEGR1 NF1 NF2 NFE2L2 NFKB2 NFKBIA NFKBIE NGFR NHEJ1 NKX2-1 NKX3-1 NOTCH1 NOTCH2 NOTCH3 NOTCH4 NPM1 NRAS NSD1 NSD2 NSD3 NT5C2 NTHL1 NTRK1 NTRK2 NTRK3 NUP93 NUTM1 NXF1 P2RY8 PAK1 PAK3 PAK5 PALB2 PARP1 PARP2 PARP3 PARP4 PARPBP PAX5 PAXX PBRM1 PCBP1 PCNA PDCD1 DSKT8RM2 PDGFB PDGFRA* PDGFRB PDK1 PER1 PGD PGR PHF6 PHOX2B XLC1A0Y DYU4X6N PIK3C3 PIK3CA* PIK3CB PIK3CD PIK3CG PIK3R1 PIK3R2 PIK3R3 PIM1 PLCG1 PLCG2 PLEKHG5 PLK2 PMAIP1 PML PMS1 PMS2 PNKP PNRC1 POLA1 POLD1 POLE POLQ POT1 PPARG PPM1D HDF6B5W WJA6T7W OVD2I9B PPP4R4 PPP6C PRAME PRC1 PRDM1 PREX2 PRG4 CLDEA5I PRKCI PRKD1 PRKDC PRKN PTCH1 PTEN PTK2 PTPN1 PTPN11 PTPRB PTPRD PTPRS PTPRT QKI RAB35 RAC1 RAD17 RAD21 RAD50 RAD51 [id number] RAD51B RAD51C RAD51D RAD52 RAD54L RAF1* ZEINAB RASA1 RASSF1 RB1 RBM10 RBMX RECQL4 REL RELN REST RET REV3L RFC1 RFC2 RFC3 RFC4 RFC5 RFTN1 RHEB RHOA RICTOR RIF1 RIPK1 RIT1 RMI1 RMI2 RNF43 ROR1 ROS1 RPA1 RPA2 RPA3 RPA4 RPS15 IOS2SI2 PUV2WT3 AXG3VM3 RPTOR RRAGC RRAS RSPO1 RSPO2 RUNX1 YPFS4J8 RYBP RYK S1PR1 S1PR2 SAMHD1 SDHA SDHAF2 SDHB SDHC SDHD SESN1 SETBP1 SETD2 SETDB1 SF3B1 SGK1 SH2B3 SH2D1A SHLD1 SHLD2 SHLD3 SHPRH SHQ1 CIV61V0 SLIT2 SLX4 SMAD2 SMAD3 SMAD4 SMARCA2 SMARCA4 SMARCAD1 SMARCB1 SMARCD1 SMC1A SMC3 SMC5 SMC6 SMO SNCAIP SOCS1 SOS1 SOX10 SOX11 SOX17 SOX2 SOX9 SP140 SPEN SPOP SRC SRSF2 SSBP1 STAG2 STAT3 STAT4 STAT5A STAT5B STAT6 STK11 STK19 STK40 SUFU SUZ12 SYK TBC1D4 KKS8SY1 TBX3 TCF3 TCF7L2 VLADIMIR TENT5C TERC TERT^ TET1 TET2 TFE3 TFEB TGFB1 TGFBR1 TGFBR2 WMVQ400 ATTS27O TMPRSS2 TNF TNFAIP3 VUMPXY54 TOP1 TOP2A TOP3A TOPBP1 TP53 WL00SM1 TP53I3 TP63 TRAF2 TRAF3 TRAF6 TRAF7 GPZPLD54 TRIM28 TRIM37 TSC1 TSC2 TSHR TSPAN31 TTK TYRO3 U2AF1 UBR5 VAV1 VEGFA VHL VTCN1 WRN WT1 XIAP XPO1 XPO5 XRCC2 XRCC3 XRCC4 XRCC5 XRCC6 YAP1 YES1 ZFAT ZFHX3 ZMYM3 QHP049 XOG446 ZRSR2 *Gene included for CNV reporting ^ Includes promoter region ncRNA Gene Table 2. Genes with select intronic regions for the detection of DNA-based gene rearrangements ALK introns: 18-19 BRCA2 introns: 2 ETV4 introns: 5-6 EZR introns: 9-11 KIT introns: 16 MYB introns: 14 NTRK2 introns: 12 ZEINAB introns: 2 SDC4 introns: 2 BCR introns: 7-10 CD74 introns: 6-8 ETV5 introns: 6-7 FGFR1 introns: 1,5,17 KMT2A introns: 6-11 MYC introns: 1 NUTM1 introns: 1 RET introns: 7-11 LUK41C3 introns: 4 BRAF introns: 7-10 EGFR introns: 7,15,24-27 ETV6 introns: 5-6 FGFR2 introns: 1,17 MET* introns 13,14 NOTCH2 introns: 26 PDGFRA introns: 7,9,11 ROS1 introns: 31-35 TMPRSS2 introns: 1-3 BRCA1 introns: 2,7-8,12,16,19-20 EML4 introns: 6,13 EWSR1 introns: 7-13 FGFR3 introns: 17 MSH2 introns: 5 NTRK1 introns: 8-10 RAF1 introns: 4-8 RSPO2 introns: 1 *Targeted for MET exon 14 skipping assessment DISCLAIMER: This test was developed and its performance characteristics determined by the [facility] Diagnostic Laboratory ([facility]) at the [facility]. It has not been cleared by the U.S. Food and Drug Administration. However, such approval is not required for clinical implementation, and the test results on the ordered genes have been shown to be clinically useful. This laboratory is CAP accredited and CLIA certified to perform high complexity molecular testing for clinical purposes. 04/04/2024 1:13 PM [employer] [facility] HEMAT[facility] Pathologist Signature . Test performed on 04/03/2024 04/04/2024 1:13 PM [employer] MOLECULAR DIAGNOSTICS [facility] ANA Liquid Biopsy NGS Result 04/04/2024 1:13 PM [employer] [facility] Blood Peripheral blood specimen / Unknown Venipuncture / Unknown 03/22/2024 10:12 AM [employer] 03/22/2024 10:12 AM [employer] Narrative This result has genomic variants that were not included in this document. us Johnny Carson MD PhD [facility] ([place]) Final Result [facility]AT[facility] MOLECULAR DIAGNOSTICS [facility] [address] [place] [address] * CT Chest Abdomen Pelvis with and without Contrast (03/15/2024 11:53 AM CDT) Anatomical Region Laterality Modality Abdomen, Pelvis, Chest Computed Tomography 03/16/2024 10:2 5 AM CDT Impressions 03/16/2024 10:36 AM CDT Findings suspicious for a lower anterior abdominal wall metastasis. Indeterminate pulmonary nodules ACTIONABLE ITEMS/RECOMMENDATIONS*: None. *An Actionable Finding is a finding that may be unrelated to the original reason for imaging but potentially actionable, meaning further investigation may be necessary. The Actionable Findings Vigilance Unit (AFVU) assists medical providers with responding to additional radiologic findings that are unexpected and potentially actionable. Narrative 03/16/2024 10:36 AM CDT FULL RESULT: Examination: CT CHEST ABDOMEN PELVIS W WO CONTRAST on 03/15/2024 11:53 AM. Clinical History: Adenocarcinoma, NOS of colon, NOS. Indication: metastatic colorectal cancer. Comparison: None. Technique: CT CHEST ABDOMEN PELVIS W WO CONTRAST. Findings: CHEST: Lungs and Pleura: An indeterminate 0.3 cm pulmonary nodules in the right upper lobe on series 8 image 66 and a 0.9 cm nodule is in the right middle lobe on image 104. No pleural effusion. Cardiomediastinum: The heart is normal in size. No pericardial effusion. Lymph nodes: No lymphadenopathy. ABDOMEN AND PELVIS: Hepatobiliary: The liver contains a cyst. No biliary dilatation. No cholecystitis. Spleen: No splenomegaly. Pancreas: No mass or ductal dilatation. Adrenal Glands: No mass. Kidneys, Ureters, Bladder: No hydronephrosis. A 0.4 cm nonobstructing stone is in the left upper pole on image 170. No bladder mass. Gastrointestinal Tract: Right hemicolectomy. No obstruction Pelvic Organs: No pelvic mass. Peritoneum/Retroperitoneum: No ascites. Lymph Nodes: No lymphadenopathy. MUSCULOSKELETAL: A 4.7 cm mass involving the lower anterior abdominal wall mass centered in the rectus muscles on series 7 image 230 is concerning for a metastasis. Procedure Note Omayra Raygoza MD - 03/16/2024 FULL RESULT: Examination: CT CHEST ABDOMEN PELVIS W WO CONTRAST on 03/15/2024 11:53AM. Clinical History: Adenocarcinoma, NOS of colon, NOS. Indication: metastatic colorectal cancer. Comparison: None. Technique: CT CHEST ABDOMEN PELVIS W WO CONTRAST. Findings: CHEST: Lungs and Pleura: An indeterminate 0.3 cm pulmonary nodules in the rightupper lobe on series 8 image 66 and a 0.9 cm nodule is in the right middlelobe on image 104. No pleural effusion. Cardiomediastinum: The heart is normal in size. No pericardial effusion. Lymph nodes: No lymphadenopathy. ABDOMEN AND PELVIS: Hepatobiliary: The liver contains a cyst. No biliary dilatation. Nocholecystitis. Spleen: No splenomegaly. Pancreas: No mass or ductal dilatation. Adrenal Glands: No mass. Kidneys, Ureters, Bladder: No hydronephrosis. A 0.4 cm nonobstructingstone is in the left upper pole on image 170. No bladder mass. Gastrointestinal Tract: Right hemicolectomy. No obstruction Pelvic Organs: No pelvic mass. Peritoneum/Retroperitoneum: No ascites. Lymph Nodes: No lymphadenopathy. MUSCULOSKELETAL: A 4.7 cm mass involving the lower anterior abdominal wall mass centered inthe rectus muscles on series 7 image 230 is concerning for a metastasis. IMPRESSION: Findings suspicious for a lower anterior abdominal wall metastasis.Indeterminate pulmonary nodules ACTIONABLE ITEMS/RECOMMENDATIONS*: None. *An Actionable Finding is a finding that may be unrelated to the originalreason for imaging but potentially actionable, meaning furtherinvestigation may be necessary. The Actionable Findings Vigilance Unit(AFVU) assists medical providers with responding to additional radiologicfindings that are unexpected and potentially actionable. Tamara DEL RIO IMG CT ORDERABLES Final Result * Hepatitis C Virus Antibody (03/14/2024 1:27 PM CDT) HCVAb. Non Reactive Non Reactive 03/14/2024 3:40 PM CDT [facility] Blood Peripheral blood specimen / Unknown Venipuncture / Unknown 03/14/2024 1:27 PM CDT 03/14/2024 1:35 PM CDT Narrative [facility] - 03/14/2024 3:40 PM CDT Antibody detection in the immunocompromised and immunosuppressed population may be delayed or absent entirely. Therefore serial testing, correlation with other clinical findings, and supplemental testing (if available) should be taken into consideration when interpreting the results. us Tamara DEL RIO LAB BLOOD ORDERABLES Final Resul t [facility] Unless otherwise noted, all lab tests performed by: Division of Pathology and Laboratory Medicine [address] [place] [id number] * Hepatitis B Total Ig Core Ab (SCREENING) (anti-HBc total Ig; HBcAb total Ig) (03/14/2024 1:27 PM CDT) [facility] HBcAb. Non Reactive Non Reactive 03/14/2024 3:39 PM CDT [facility] Blood Peripheral blood specimen / Unknown Venipuncture / Unknown 03/14/2024 1:27 PM CDT 03/14/2024 1:35 PM CDT Tamara [facility] LAB BLOOD ORDERABLES Final Resul t Performing Organization Address City/[facility]/ZIP Co de Phone Number [facility] Unless otherwise noted, all lab tests performed by: Division of Pathology and Laboratory Medicine [address] [place] [id number] * Hepatitis B Surface Antibody (03/14/2024 1:27 PM CDT) [facility] HBsAb Non Reactive 03/14/2024 3:40 PM CDT [facility] Blood Peripheral blood specimen / Unknown Venipuncture / Unknown 03/14/2024 1:27 PM CDT 03/14/2024 1:35 PM CDT Narrative [facility] - 03/14/2024 3:40 PM CDT Vaccinated individual: Reactive Unvaccinated individual: Non-Reactive us Tamara DEL RIO LAB BLOOD ORDERABLES Final Resul t [facility] Unless otherwise noted, all lab tests performed by: Division of Pathology and Laboratory Medicine [address] [place] [id number] * Hepatitis B Surface Ag (03/14/2024 1:27 PM CDT) [facility] HBsAg. Non Reactive Non Reactive 03/14/2024 3:39 PM CDT [facility] Blood Peripheral blood specimen / Unknown Venipuncture / Unknown 03/14/2024 1:27 PM CDT 03/14/2024 1:35 PM CDT [facility] BLOOD ORDERABLES Final Resul t Performing Organization Address [facility] Co de Phone Number [facility] Unless otherwise noted, all lab tests performed by: Division of Pathology and Laboratory Medicine [address] [place] [id number] * Prothrombin Time with INR (03/14/2024 1:27 PM CDT) Prothrombin Time 12.2 12.2 - 14.4 second(s) 03/14/2024 2:07 PM CDT [facility] International Normalization Ratio 0.93 0.91 - 1.10 03/14/2024 2:07 PM CDT [facility] Blood Peripheral blood specimen / Unknown Venipuncture / Unknown 03/14/2024 1:27 PM CDT 03/14/2024 1:35 PM CDT Tamara [facility] LAB BLOOD ORDERABLES Final Resul t Performing Organization Address [facility]/ZIP Co de Phone Number [facility] Unless otherwise noted, all lab tests performed by: Division of Pathology and Laboratory Medicine [address] [place] [id number] * IHC Workup (03/12/2024 10:18 AM CDT) Tissue 03/12/2024 10:1 8 AM CDT 03/12/2024 10:18 AM CDT Tamara DEL RIO [facility] ORDERABLES Vika l Result Performing Organization Address City/[facility]/ZIP Co de Phone Number [facility] [address] [address], [place] * OSI US Pelvic (01/18/2024 6:46 PM CDT) Only the most recent of3 resultswithin the time period is included. Narrative Systemgenerated, Documentation - 03/20/2024 6:47 PM [employer] Study acquired at another institution. For comparison only. No [facility] originated interpretation requested or available. Johnny Carson MD PhD IMG OUTSIDE IMAGE ORDERABLES Final Result * Pathology Outside Interpretation (01/18/2024) Materials Received Accession#, Stained, Block, Unstained Collected Received A. [id number], 1 SS, 1 BLOCKS, 0 USS 01/18/2024 03/08/2024 03/18/2024 11:21 PM [facility] Addendum 1 By immunohistochemistry, the metastatic adenocarcinoma cells in outside block 1 show intact nuclear expression of the DNA mismatch repair proteins MLH1, MSH2, MSH6, and PMS2, a normal result that implies a low likelihood of high-level microsatellite instability. This is a duplicate test, as these stains were already performed on the patient's original right hemicolectomy and reviewed at [facility] ([id number]). Tumor cells are negative for HER2 overexpression by immunohistochemistry (score 1+). 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 (SEE COMMENT) 03/18/2024 11:21 PM [facility] Comment Per report, immunohistochemistry performed at [facility] showed the tumor cells to be positive for CDX-2 and CK20 and negative for CK7, ER, GATA3, PAX8, and TTF-1. Given the reported clinical history of colon cancer, the findings are consistent with metastatic colorectal adenocarcinoma. 03/18/2024 11:21 PM [facility] Biomarker Block(s) Block for biomarker testin 03/18/2024 11:21 PM [employer] [facility] Disclaimer "Some tests reported here may have been developed and performance characteristics determined by [facility] Pathology and Laboratory Medicine. These tests have not been specifically cleared or approved by the U.S. Food and Drug Administration. If applicable, controls were reviewed and showed appropriate reactivity." 03/18/2024 11:21 PM [employer] [facility] Tissue 01/18/2024 03/08/2024 8:4 4 AM CDT Agnes Cristobal MD LAB PATHOLOGY ORDERABLES Edite d Result - Final [facility] [address] [place] [address], [place] * OSI CT Abdomen and Pelvis (01/03/2024 6:47 PM CDT) Narrative Systemgenerated, Documentation - 03/20/2024 6:47 PM [employer] Study acquired at another institution. For comparison only. No [facility] originated interpretation requested or available. Johnny Carson MD PhD IMG OUTSIDE IMAGE ORDERABLES Final Result * OSI US Abdominal Complete (12/15/2023 6:47 PM CDT) Narrative Systemgenerated, Documentation - 03/20/2024 6:47 PM [employer] Study acquired at another institution. For comparison only. No [facility] originated interpretation requested or available. 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 PCP - General Gastrointestinal Medical Oncology 02/29/24 03/13/24 Johnny Carson MD PhD [address] [place] [id number] [email or web address] .[email or web address] PCP - General Gastrointestinal Medical Oncology 03/14/24 [place] [address] [place] [id number] [email or web address] Intake Nurse Navigator Nursing 02/27/24 03/15/24 Tamara Joshi PA [address] [place] [id number] [email or web address] Physician Follow Up Rep Gastrointestinal Medical Oncology 03/14/24 [place] [address] [place] [id number] [email or web address] Treatment Nurse Navigator Nursing 03/16/24
[2024-05-29 17:42] LABS: Absolute Lymphocytes (CBC) 0.9 K/uL (0.7-4.9); Absolute Monocytes 0.9 K/uL (0.1-1.3); Absolute Neutrophil 6.3 K/uL (1.8-8.0); Basophils % 0.4 % (0-1.3); Eosinophils % 0.4 % (0-4.4); Hematocrit 39.8 % (36.0-45.0); Hemoglobin 13.4 g/dL (12.0-15.0); Lymphocytes % 10.6 % (15.3-44.8); MCH 30.8 pg (27.0-35.0); MCHC 33.5 g/dL (32.0-36.0); MCV 91.8 fL (80-100); MPV 8.2 fL (7.6-11.3); Monocytes % 11.2 % (3.3-12.3); Neutrophils % 77.4 % (41.7-73.7); Platelets 224 thou/uL (152-406); RBC Red Blood Cell Count 4.34 M/uL (3.86-4.86); Red Cell Distribution Width 14.2 % (12.1-15.2)
[2024-05-29 17:45] LABS: Albumin 3.5 g/dL (3.4-5.0); Albumin/Globulin Ratio 0.8 (1.1-1.8); Anion Gap 8.5 mEq/L (5.0-15.0); Bilirubin Total 0.7 mg/dL (0.2-1.0); Globulin 4.4 g/dL (2.3-3.5); Potassium 3.5 mEq/L (3.5-5.1); Protein, Total 7.9 g/dL (6.4-8.2)
[2024-05-29 18:26] LABS: Specific Gravity 1.023 (1.005-1.030); Sqamous Epithelial <5 /HPF (None Seen); Urine Bacteria <20 /HPF (<20); Urine Bilirubin NEGATIVE (Negative); Urine Blood 1+ (Negative); Urine Clarity Extremely Turbid (Clear); Urine Color Yellow (Yellow); Urine Crystals Unidentified Few /HPF (None Seen); Urine Culture Reflex Order REFLEXED; Urine Glucose NEGATIVE (Negative); Urine Ketones 1+ (Negative); Urine Microscopic Reflex YN ORDER UMIC; Urine Mucus 2+ /HPF (None Seen); Urine Nitrite 2+ (Negative); Urine Protein 1+ (Negative); Urine Urobilinogen Normal (Normal); Urine WBC >50 /HPF (<5); Urine pH 5.5 (5.0-7.0)
--- NOTE | 2024-05-29 19:20 | RAD REPORT ---
EXAMINATION: CT ABDOMEN AND PELVIS WITH CONTRAST CLINICAL INDICATION: Abdominal pain TECHNIQUE: CT abdomen and pelvis was performed, after the administration of 100 cc Isovue-300.. Sagit lucila and coronal reconstructions were obtained. One or more of the following dose reduction techniques were used: Automated exposure control, adjustment of the mA and kV according to patient si ze, and iterative reconstruction. Unless otherwise specified, incidental findings do not require dedicated imaging follow-up. [id number]. Oral contrast was not given which limits evaluation of bowel and appendix. COMPARISON: .December 2023 FINDINGS: 5 mm perifissural right middle lobe nodule unchanged Mild compression inferior vertebral endplate of T12 unchanged Small hepatic cyst. The spleen, pancreas and adrenals unremarkable. Small renal calculi. No hydronephrosis.. Enhancement of the wall of the right renal pelvis and proxim al ureter. Right hemicolectomy. No obstruction. No evidence of diverticulitis. No adnexal mass. Soft tissue left rectus abdominous muscle near midline at the level of the pelvis is mildly diminishe d in size. No evidence of diverticulitis. : IMPRESSION: Enhancement of the wall of the right renal pelvis and proximal right ureter suspicious for ascending urinary tract infection
--- NOTE | 2024-05-29 19:42 | ER ---
Nurse's Notes [facility] Name: Yury Rodriguez Age: 73 yrs Sex: Female : 1950 Arrival Date: 05/29/2024 Time: 15:34 Bed 6 Private MD: Diagnosis: UTI/ Urinary tract infection, site not specified Presentation: 05/29 15:54 Chief complaint: Patient states: Left sided abdominal pain onset this morning. pt cm10 denies any nausea, vomiting or diarrhea. Pt states that the pain is worse when trying to use the restroom. Pt being treated for intestinal cancer. Coronavirus screen: Client denies travel out of the [place] in the last 14 days. Ebola Screen: Patient denies travel to an Ebola-affected area in the 21 days before illness onset. Initial Sepsis Screen: Does the patient meet any 2 criteria? No. Patient's initial sepsis screen is negative. Does the patient have a suspected source of infection? No. Patient's initial sepsis screen is negative. Risk Assessment: Do you want to hurt yourself or someone else? Patient reports no desire to harm self or others. Onset of symptoms was May 29, 2024. 15:54 Method Of Arrival: Wheelchair cm10 15:54 Acuity: KAREN 3 cm10 Triage Assessment: 15:56 General: Appears in no apparent distress. uncomfortable, Behavior is calm, cooperative. cm10 Neuro: No deficits noted. Level of Consciousness is awake, alert, obeys commands, Oriented to person, place, time, situation, Appropriate for age. Respiratory: No deficits noted. Airway is patent Respiratory effort is even, unlabored, Respiratory pattern is regular, symmetrical. Historical: - Allergies: 15:55 Sulfa (Sulfonamide Antibiotics); cm10 - PMHx: 15:55 High Cholesterol; Kidney stones; cm10 - PSHx: 15:55 colon CA with SX (s); cm10 - Immunization history:: Adult Immunizations up to date. - Infectious Disease History:: Denies. - Social history:: Smoking status: Patient denies any tobacco usage or history of. Screenin:20 [facility] ED Fall Risk Assessment (Adult) History of falling in the last 3 months, jb4 including since admission No falls in past 3 months (0 pts) Confusion or Disorientation No (0 pts) Intoxicated or Sedated No (0 pts) Impaired Gait No (0 pts) Mobility Assist Device Used No (0 pt) Altered Elimination No (0 pt) Score/Fall Risk Level 0 - 2 = Low Risk Oriented to surroundings, Maintained a safe environment. Abuse screen: Denies threats or abuse. Nutritional screening: No deficits noted. Tuberculosis screening: No symptoms or risk factors identified. Assessment: 17:00 Reassessment: Patient appears in no apparent distress at this time. Patient and/or jb4 family updated on plan of care and expected duration. Pain level reassessed. Patient is alert, oriented x 3, equal unlabored respirations, skin warm/dry/pink. Patient states feeling better. 18:00 Reassessment: Patient appears in no apparent distress at this time. Patient and/or jb4 family updated on plan of care and expected duration. Pain level reassessed. Patient is alert, oriented x 3, equal unlabored respirations, skin warm/dry/pink. 19:00 Reassessment: Patient appears in no apparent distress at this time. Patient and/or jb4 family updated on plan of care and expected duration. Pain level reassessed. Patient is alert, oriented x 3, equal unlabored respirations, skin warm/dry/pink. 20:20 Reassessment: Patient appears in no apparent distress at this time. Patient and/or jb4 family updated on plan of care and expected duration. Pain level reassessed. Patient is alert, oriented x 3, equal unlabored respirations, skin warm/dry/pink. Vital Signs: 15:54 BP 121 / 83; Pulse 73; Resp 15; Temp 98.6(O); Pulse Ox 97% on R/A; Weight 72.57 kg; cm10 Height 5 ft. 6 in. ; Pain 0/10; 20:20 BP 116 / 83; Pulse 99; Resp 16; Pulse Ox 97% ; jb4 15:54 Body Mass Index 25.82 (72.57 kg, 167.64 cm) cm10 15:54 Pain Scale: Adult cm10 ED Course: 15:38 Patient arrived in ED. al6 15:40 Doug Seymour PA is PHCP. cp 15:40 Doug Mcnally MD is Attending Physician. cp 15:55 Triage completed. cm10 15:56 Arm band placed on right wrist. Patient placed in an exam room, on a stretcher. cm10 17:15 Inserted saline lock: 22 gauge in right wrist, using aseptic technique. jb4 17:23 Lactate w/ 2H reflex if indic. Sent. jb4 17:24 CBC with Diff Sent. jb4 17:24 CMP Sent. jb4 17:24 Lipase Sent. jb4 18:47 CT Abd/Pelvis - IV Contrast Only In Process Unspecified. EDMS 18:[address]. db 20:20 Patient has correct armband on for positive identification. Bed in low position. Call jb4 light in reach. Side rails up X 1. Provided Education on: discharge instructions.. 20:20 No provider procedures requiring assistance completed. IV discontinued, intact, jb4 bleeding controlled, No redness/swelling at site. Pressure dressing applied. Administered Medications: 20:07 Not Given (Patient Refused): morphineor iv 2 mg IVP once over 4 mins jb4 20:07 Not Given (Patient Refused): ondansetron 4 mg IVP once; over 2 minutes jb4 20:15 Drug: Rocephin IV 1 grams IV at calculated rate once; Given slow IV push per pharmacy jb4 instructions Route: IV; Rate: calculated rate; Site: right wrist; 20:19 Follow up: Response: No adverse reaction; Medication administered at discharge.; IV jb4 Status: Completed infusion; IV Intake: 10ml Medication: 20:20 VIS not applicable for this client. jb4 Intake: 20:19 IV: 10ml; Total: 10ml. jb4 Outcome: 19:41 Discharge ordered by . cp 20:20 Discharged to home ambulatory, with family, jb4 20:20 Condition: stable 20:20 Discharge instructions given to patient, Instructed on discharge instructions, follow up and referral plans. medication usage, Demonstrated understanding of instructions, follow-up care, medications, Prescriptions given X 1, 20:22 Patient left the ED. jb4 Addendum: 06/01/2024 08:49 Addendum: Culture Results: Positive urine culture. No further action required. Bacteria e b sensitive to prescribed antibiotic. Signatures: Dispatcher [employer] EDMS Doug Seymour PA PA cp Bryson, James RN RN jb4 Cami Quezada Danielle, RN RN Cindi Workman RN RN cm10 [email or web address] Corrections: (The following items were deleted from the chart) 05/29 15:56 15:55 Allergies: FLU VACCINE; cm10 cm10
--- NOTE | 2024-05-29 19:42 | EDPHYS ---
Physician Documentation [facility] – [place], [place] Name: Yury Rodriguez Age: 73 yrs Sex: Female : 1950 Arrival Date: 05/29/2024 Time: 15:34 Bed 6 Private MD: PHILLIP Physician Doug Mcnally HPI: 05/29 16:10 This 73 yrs old Female presents to ER via Wheelchair with complaints of Abdominal Pain. cp 16:10 The patient presents with abdominal pain in the lower abdomen, left worse than right. cp Onset: The symptoms/episode began/occurred this morning. 16:10 Associated signs and symptoms: Pertinent negatives: blood in stools, chest pain, cp constipation, diarrhea, fever, hematuria, vomiting. 16:10 The symptoms are described as waxing/waning. Modifying factors: the symptoms are cp aggravated by attempting to use restroom. Historical: - Allergies: 15:55 Sulfa (Sulfonamide Antibiotics); cm10 - PMHx: 15:55 High Cholesterol; Kidney stones; cm10 - PSHx: 15:55 colon CA with SX (s); cm10 - Immunization history:: Adult Immunizations up to date. - Infectious Disease History:: Denies. - Social history:: Smoking status: Patient denies any tobacco usage or history of. ROS: 16:15 Constitutional: Negative for body aches, chills, fever, poor PO intake, cp 16:15 Respiratory: Negative for cough, shortness of breath, wheezing, cp 16:15 Abdomen/GI: Positive for abdominal pain, of the right lower quadrant and left lower quadrant, Negative for vomiting, diarrhea, constipation, 16:15 Eyes: Negative for injury, pain, redness, and discharge, cp 16:15 ENT: Negative for drainage from ear(s), ear pain, sore throat, difficulty swallowing, difficulty handling secretions, 16:15 Back: Negative for pain at rest, pain with movement, 16:15 Neuro: Negative for altered mental status, dizziness, headache, numbness, weakness, cp 16:15 All other systems are negative, Exam: 16:20 Constitutional: The patient appears in no acute distress, alert, awake, non-toxic, well cp developed, well nourished, 16:20 Head/Face: Normocephalic, atraumatic. cp 16:20 Eyes: Periorbital structures: appear normal, Conjunctiva: normal, no exudate, no injection, Sclera: no appreciated abnormality, Lids and lashes: appear normal, bilaterally, 16:20 ENT: External ear(s): are unremarkable, Nose: is normal, Mouth: Lips: moist, Oral mucosa: moist, Posterior pharynx: Airway: no evidence of obstruction, patent, 16:20 Chest/axilla: Inspection: normal, 16:20 Cardiovascular: Rate: normal, Rhythm: regular, 16:20 Respiratory: the patient does not display signs of respiratory distress, Respirations: normal, no use of accessory muscles, no retractions, labored breathing, is not present, Breath sounds: are clear throughout, no decreased breath sounds, no stridor, no wheezing, 16:20 Abdomen/GI: Inspection: abdomen appears normal, Bowel sounds: active, all quadrants, Palpation: soft, in all quadrants, mild abdominal tenderness, in the right lower quadrant and left lower quadrant, 16:20 Back: CVA tenderness, is absent, 16:20 Neuro: Orientation: to person, place \T\ time. Mentation: is normal, Motor: moves all fours, no focal deficits, Vital Signs: 15:54 BP 121 / 83; Pulse 73; Resp 15; Temp 98.6(O); Pulse Ox 97% on R/A; Weight 72.57 kg; cm10 Height 5 ft. 6 in. ; Pain 0/10; 20:20 BP 116 / 83; Pulse 99; Resp 16; Pulse Ox 97% ; jb4 15:54 Body Mass Index 25.82 (72.57 kg, 167.64 cm) cm10 15:54 Pain Scale: Adult cm10 MDM: 15:57 Medical Screening Exam initiated cp 19:40 Data reviewed: vital signs, nurses notes, lab test result(s), radiologic studies, CT cp scan, and as a result, I will discharge patient. 19:40 Differential diagnosis: appendicitis, bowel obstruction, non-specific abd pain, cp Pyelonephritis, Ureterolithiasis, urinary tract infection, constipation. I considered the following discharge prescriptions or medication management in the emergency department Medications were administered in the Emergency Department. See MAR. Counseling: I had a detailed discussion with the patient and/or guardian regarding the historical points, exam findings, and any diagnostic results supporting the discharge/admit diagnosis, lab results, radiology results, to return to the emergency department if symptoms worsen or persist or if there are any questions or concerns that arise at home. Response to treatment: the patient's symptoms have mildly improved after treatment, and as a result, I will discharge patient. Special discussion: Based on the patient's Hx, exam, and Dx evaluation, there is no indication for emergent surgery or inpatient Tx. It is understood by the patient/guardian that if the Sx's persist or worsen they need to return immediately for re-evaluation. 05/29 16:04 Order name: CBC with Diff; Complete Time: 19:27 05/29 19:27 Interpretation: Normal except: PIERRE% 77.4; LYM% 10.6. 05/29 16:04 Order name: CMP; Complete Time: 19:27 05/29 19:27 Interpretation: Normal except: BUN 19; GFR 78; GLOB 4.4; A/G 0.8. 05/29 16:04 Order name: Lipase; Complete Time: 19:27 05/29 16:04 Order name: Urinalysis w/ reflexes; Complete Time: 19:27 05/29 19:28 Interpretation: Normal except: [facility] Extremely Turbid; UKET 1+; UBLD 1+; UPROT 1+; UNIT cp 2+; UESTR 250; UWBC >50; URBC 5-10. 05/29 16:04 Order name: Lactate w/ 2H reflex if indic.; Complete Time: 19:27 05/29 19:28 Interpretation: Reviewed. 05/29 18:30 Order name: Urine Culture [facility] 05/29 17:02 Order name: CT Abd/Pelvis - IV Contrast Only; Complete Time: 19:27 05/29 19:29 Interpretation: Report reviewed. 05/29 16:04 Order name: IV Saline Lock; Complete Time: 17:24 05/29 16:04 Order name: Labs collected and sent; Complete Time: 17:24 cp Administered Medications: 20:07 Not Given (Patient Refused): morphineor iv 2 mg IVP once over 4 mins jb4 20:07 Not Given (Patient Refused): ondansetron 4 mg IVP once; over 2 minutes jb4 20:15 Drug: Rocephin IV 1 grams IV at calculated rate once; Given slow IV push per pharmacy jb4 instructions Route: IV; Rate: calculated rate; Site: right wrist; 20:19 Follow up: Response: No adverse reaction; Medication administered at discharge.; IV jb4 Status: Completed infusion; IV Intake: 10ml Disposition Summary: 05/29/24 19:41 Discharge Ordered Notes: Location: Home cp Problem: new cp Symptoms: have improved cp Condition: Stable cp Diagnosis - UTI/ Urinary tract infection, site not specified cp Followup: cp - With: Private Physician - When: 2 - 3 days - Reason: Recheck today's complaints Discharge Instructions: - Discharge Summary Sheet cp - Urinary Tract Infection, Adult cp Forms: - Medication Reconciliation Form cp - Antibiotic Education cp - Prescription Opioid Use cp - Patient Portal Instructions cp - Leadership Thank You Letter cp Prescriptions: - cefpodoxime 200 mg Oral tablet - take 1 tablet ORAL route every 12 hours for 10 days with food; 20 tablet; cp Refills: 0, Product Selection Permitted Addendum: 05/31/2024 09:36 Co-signature as Attending Physician, Doug Mcnally MD I agree with the assessment and c hassan plan of care. Signatures: Dispatcher [employer] Doug Adkins MD MD cha Page, Corey PA PA cp Mario Clarke RN RN jb4 Cindi Rodriguez RN RN cm10 Corrections: (The following items were deleted from the chart) 05/29 15:56 15:55 Allergies: FLU VACCINE; cm10 cm10 16:05 16:05 CBC+H.LAB.BRZ ordered. EDMS EDMS 16:05 16:05 COMPREHENSIVE METABOLIC PANEL+C.LAB.BRZ ordered. EDMS EDMS 16:05 16:05 LIPASE+C.LAB.BRZ ordered. EDMS EDMS 16:05 16:05 Urinalysis+U.LAB.BRZ ordered. EDMS EDMS 16:05 16:05 LACTATE+C.LAB.BRZ ordered. EDNJ EDMS 05/30 16:32 05/29 16:10 The patient presents with abdominal pain in the lower abdomen, right worse cp than left cp
[2024-05-29] MEDS ORDERED: CEFTRIAXONE 1000 MG/VIAL ONE (19:47)
[2024-06-01 01:40] VITALS: BP 116/83; TEMP 98.6; O2SAT 97
== END 2024-05-29 20:22 | disposition home or self-care (01) ==
LOC: ER 15:34 → SUPCPDRO 15:34 → ER 20:22
DX: N39.0 Urinary tract infection, site not specified (principal)
CPT/HCPCS: 87088; 85025; 81001; 87086; 36415; 83605; 87077; 87186; 83690; 80053; 74177; 96374; 99285; Q9967; J0696